=== PATIENT | female | born 1970 | race Caucasian/White ===

== ENCOUNTER 2017-06-08 15:29 | Outpatient (RCR) | payer MEDICAID, SELFPAY ==
[2017-06-08 13:28] VITALS: BP 139/35; PULSE 86; RESP 16; TEMP 37.7; O2SAT 99; BMI 21.0
--- NOTE | 2017-06-08 14:53 | CON.PCM_ITS ---
Consult Referring Physician: Yamileth Camargo. Subjective Date of Service:: 06/08/17 Chief Complaint: Referred for anemia and splenomegaly. History of Present Illness: 46y.o.woman was admitted in April 2017 with severe anemia, CT scan on 2016 showed normal liver and normal spleen with bilateral kidney stones, largest was 3 mm. She reportedly had lower GI a few weeks before admission. While on admission, she had a reaction to Venofer and was transfuse 2 Units PRBC. On May 28, 2017 EGD was normal, colonoscopy showed mild diverticulosis. She saw her primary care provider and was told she had splenomegaly so was referred for further evaluation. She denies bleeding, having her menses now. Power of Heating And Cooling Technician: No Living Will: No Health History: Past Medical History Past Medical History: Anemia,Diabetes mellitus Past Surgical History Surgical: Cholecystectomy Other Surgical History: TUMOR REMOVED FROM WRIST Family History Paternal Past Medical History: Diabetes mellitus,Heart disease,Hypertension Paternal History of Cancer Skin cancer Maternal Past Medical History: Diabetes mellitus Social History Smoking Status Former smoker Allergies/Adverse Reactions: Allergy/AdvReac Type Severity Reaction Status Date / Time iron [From Venofer] Allergy Severe Hives Verified 06/08/17 13:26 latex Allergy Rash Verified 06/08/17 13:26 Home Medications Medication Instructions Recorded Acetaminophn/Pyril Mal/Caffein 1 each PO 06/08/17 [Midol Caplet] HydrOXYzine GLORIA [Vistaril] 25 mg PO TID PRN PRN 06/08/17 Ibuprofen [Ibuprofen Ib] 400 mg PO PRN 06/08/17 Ondansetron HCl [Zofran] 4 mg PO PRN 06/08/17 Review of Systems Constitutional:: Denies: Fever, Sweats, Weight loss, Appetite change, Chills Cardiovascular:: Denies: Chest pain, Palpitations, Dyspnea on exertion, Orthopnea, PND, Shortness of breath Respiratory: Denies: Cough, Hemoptysis, Shortness of Breath, Wheezing Gastrointestinal:: Denies: Abdominal pain, Nausea, Vomiting, Diarrhea, Constipation, Hematochezia Genitourinary: Denies: Dysuria, Hematuria, 15, Flank pain Musculoskeletal:: Reports: Arthralgia. Denies: Joint stiffness, Joint swelling , Muscle weakness, Back pain, Myalgia Skin: Denies: Rash, Skin Changes, Wounds Neurological:: Denies: Headache, Dizziness, Visual changes, Tinnitus, Hearing loss Psychiatric: Reports: Anxiety Objective Vital Signs Height 1.6 m Weight: 53.977 kg Weight in Pounds 119.0 lbs Pulse Ox 99 Temperature 99.8 F Pulse Rate 86 Respiratory Rate 16 Blood Pressure 139/35 Blood Pressure Position Sitting - Physical Exam General: Alert, Oriented x3, No apparent distress HEENT: Atraumatic, PERRLA, EOMI, Normocephalic Oropharynx:: Dry mucosa Neck:: Supple, Trachea midline. Negative for: JVD, bilateral Cardiac:: Regular rate, Regular rhythm, Normal S1, Normal S2. Negative for: Murmur Lungs: Clear to auscultation, Excusion symmetrical. Negative for: Rhonchi, Wheezes Abdomen:: Bowel sounds x 4, Soft, Non-tender, Non-distended. Negative for: Hepatosplenomegaly Extremities:: - - scar Left wrist.. Negative for: Cyanosis, Edema Neurological: Neuro grossly intact Skin:: Negative for: Lesions, Rash, Petechiae, Ecchymosis Psychiatric:: Appropriate affect, Euthymic Lymphatics:: Negative for: Cervical lymphadenopathy, Supraclavicular lymphadenopathy, Axillary lymphadenopathy Assessment and Plan Anemia, etiology is unclear at this time. Splenomegaly detected by PCP. Arthralgia. Plan is to obtain CBC, CMP, LDH, Retic count, iron profile. US of spleen to R/O splenomegaly. To discuss arthralgias with PCP. RTC 2 wks. Primary Care Provider: No Primary Care Phys Referring Provider: (1) Anemia Status: Acute Qualifiers:
[2017-06-22 15:35] VITALS: BP 144/92; PULSE 104; RESP 16; TEMP 37.6; O2SAT 99; BMI 20.9
--- NOTE | 2017-06-22 15:56 | ONC.PN.ESTAB ---
- Date of Service Date of Service:: 06/22/17 - Chief Complaint f/u for anemia and splenic US results. - History of Present Illness 46y.o.woman was admitted in April 2017 with severe anemia, CT scan on 05/12/2017 showed normal liver and normal spleen with bilateral kidney stones, largest was 3 mm. She reportedly had lower GI bleed a few weeks before admission. While on admission, she had a reaction to Venofer and was transfuse 2 Units PRBC. On May 28, 2017 EGD was normal, colonoscopy showed mild diverticulosis. She saw her primary care provider and was told she had splenomegaly so was referred for further evaluation. US of spleen and iron were requested and comes in for follow up. - Past Medical/Social History Past Medical History Past Medical History: Anemia,Diabetes mellitus Past Surgical History Surgical: Cholecystectomy Other Surgical History: TUMOR REMOVED FROM WRIST BLADDER SCOPE 06/15/17 Family History Paternal Past Medical History: Diabetes mellitus,Heart disease,Hypertension Paternal History of Cancer Skin cancer Maternal Past Medical History: Diabetes mellitus Social History Smoking Status Former smoker Review of Systems Constitutional:: Denies: Fever, Sweats, Weight loss, Appetite change, Chills Cardiovascular:: Denies: Chest pain, Palpitations, Dyspnea on exertion, Orthopnea, PND, Shortness of breath Respiratory: Denies: Cough, Hemoptysis, Shortness of Breath, Wheezing Gastrointestinal:: Denies: Abdominal pain, Nausea, Vomiting, Diarrhea, Constipation, Hematochezia Genitourinary: Denies: Dysuria, Hematuria, 15, Flank pain Musculoskeletal:: Denies: Back pain, Myalgia, Arthralgia Skin: Denies: Rash, Skin Changes, Wounds Neurological:: Denies: Headache, Dizziness, Visual changes, Tinnitus, Hearing loss Psychiatric: Denies: Anxiety, Depression, Homicidal Ideations, Suicidal Ideations Objective Vital Signs Height 1.6 m Weight: 53.524 kg Weight in Pounds 118.0 lbs Pulse Ox 99 Temperature 99.7 F Pulse Rate 104 Respiratory Rate 16 Blood Pressure 144/92 Blood Pressure Position Sitting - Physical Exam General: Alert, Oriented x3, No apparent distress Laboratory Data: 06/08/2017 labs reviewed, WBC 5.7 hemoglobin 12.1, platelets 177. Ferritin 40. Diagnostic Data: 06/15/2017 abdominal ultrasound left upper quadrant recent reviewed, normal-sized spleen with no abnormalities. Assessment and Plan Anemia resolved. No Splenomegaly on Ultrasound. Discussed findings with PT. Plan is to follow with PCP. RTC prn. Primary Care Provider: No Primary Care Phys Referring Provider: (1) Anemia Status: Resolved (2) Splenomegaly Status: Resolved
== END 2017-06-29 14:19 | disposition home or self-care (01) ==
LOC: OMD 06-22 15:29
PROVIDERS: Visit Provider Internal Medicine Medical Oncology
DX: D64.9 Anemia, unspecified (principal)

== ENCOUNTER → 2017-09-11 08:20 | Outpatient (CLI) | payer MEDICAID, SELFPAY ==
--- NOTE | 2017-09-11 | EMB_PTH ---
PATIENT: XUAN IRVING LOC: [facility] U#:[id number] AGE/SX: 54/F ROOM: RE09/11/[address]: Dr. Katelyn Santillan MD : 1970 BED: DIS: SPEC #: [id number] RECD: 09/11/17 18:13 STATUS: DIONISIO TRACEE #: [id number] SANDIE: 09/11/17 00:[address]: Katelyn Santillan DEPT: SURGICAL PATHOLOGY RECD BY: Fermin Sanabria ENTERED: 09/14/17 08:19 SP TYPE: ENDOM BX/C RACHEL DR: No Primary Care Phys Tissues: Endometrium, NOS Procedures: Surgery Specimen Level IV HEADER OPERATION: Endometrial biopsy PRE-OP DIAGNOSIS: Endometrial biopsy TISSUE SUBMITTED: Endometrial biopsy MICROSCOPIC DIAGNOSIS Endometrium, biopsy: Scant strips of weakly proliferative to inactive endometrium. AM:augustus 09/15/17 COMMENT The specimen primarily consists of clotted blood. Clinical correlation is suggested. MICROSCOPIC DESCRIPTION Slides are reviewed. GROSS DESCRIPTION Received is one container labeled with the patient's name and not further designated. The specimen consists of multiple irregular fragments of red-blanchard soft tissue that in aggregate measure 2.3 x 1 x 0.1 cm. The specimen is totally submitted in one cassette. / AM:augustus 09/14/17 TC:5 [facility]: [id number]
== END ==
PROVIDERS: Visit Provider Obstetrics & Gynecology
DX: N93.9 Abnormal uterine and vaginal bleeding, unspecified (principal)
CPT/HCPCS: 88305

== ENCOUNTER 2017-09-11 14:45 | Emergency (ER) | payer MEDICAID, SELFPAY ==
[2017-09-11 14:48] VITALS: BP 122/86; PULSE 92; RESP 17; TEMP 37.3; O2SAT 93; BMI 21.9
[2017-09-11 15:52] LABS: Bacteria 0 SEEN /hpf (None Seen); Color, Urine Yellow (Yellow); Glucose, Dipstick Normal (Normal); Ketone-Dipstick Negative (Negative); Leukocyte Esterase-Dipstick Negative /ul (Negative); Mucous, Urine 0 SEEN /hpf (<or=2+); Nitrite-Dipstick Negative (Negative); Occult Blood-Urine Negative /ul (Negative); Protein-Dipstick Negative (Negative); Red Blood Cells-Urine 0 SEEN /hpf (0-5); Specific Gravity, Urine 1.005 (1.002-1.030); Squamous Epithelial Cells - UA 0 SEEN /hpf (5-10); Urine Bilirubin Dipstick Negative (Negative); Urine Clarity Clear (Clear); Urine Urobilinogen Normal (Normal); White Blood Cells 0 SEEN /hpf (0-5)
== END 2017-09-11 18:54 | disposition left against medical advice (07) ==
LOC: ED 18:30
PROVIDERS: Emergency Provider Emergency Medicine
DX: R10.32 Left lower quadrant pain (principal); N93.9 Abnormal uterine and vaginal bleeding, unspecified
CPT/HCPCS: 81001; 88305

== ENCOUNTER 2017-10-09 05:19 | Day surgery (SDC) | payer MEDICAID, SELFPAY ==
[2017-10-09] VITALS (13 sets, daily range): BP systolic 93–128; BP diastolic 48–74; PULSE 83–103; RESP 14–20; TEMP 36.4–36.9; O2SAT 87–100; BMI 22.8; BMI 23.6
--- NOTE | 2017-10-09 | HYST_PTH ---
PATIENT: XUAN IRVING LOC: [facility] [place] U#:[id number] AGE/SX: 47/F ROOM: RE10/09/[address]: Dr. Katelyn Santillan MD : 1970 BED: DIS: 10/10/2017 SPEC #: [id number] RECD: 10/09/17 15:07 STATUS: DIONISIO TRACEE #: [id number] SANDIE: 10/09/17 00:[address]: Katelyn Santillan DEPT: SURGICAL PATHOLOGY RECD BY: Fermin Sanabria ENTERED: 10/09/17 15:08 SP TYPE: HYSTERECT OTHR DR: No Primary Care Phys Tissues: Uterus, NOS Procedures: Surgery Specimen Level V HEADER OPERATION: Hysterectomy, lap-assisted vaginal, left salpingectomy-oophorectomy PRE-OP DIAGNOSIS: Chronic pelvic pain, endometriosis determined by laparoscopy, stress incontinence of urine, abnormal uterine bleeding, LGSIL on cytologic smear of cervix TISSUE SUBMITTED: Uterus, cervix, right fallopian tube, left ovary and fallopian tube MICROSCOPIC DIAGNOSIS Uterus, cervix, right fallopian tube, left ovary and fallopian tube, vaginal hysterectomy, left salpingectomy-oophorectomy, right salpingectomy: Cervix ? focal changes suspicious for HPV cytopathic effects. - Chronic cystic cervicitis. - Resection margins are free of dysplastic changes. Endometrium ? proliferative endometrium. Myometrium ? focal superficial adenomyosis. Bilateral fallopian tubes - no pathologic diagnosis. Left ovary ? physiologic follicular cyst. SJ:augustus 10/12/17 COMMENT Immunohistochemistry ([id number]) for surrogate HPV marker (p16) supports the above diagnosis.. MICROSCOPIC DESCRIPTION Slides are reviewed. GROSS DESCRIPTION Received in fixative is one container labeled with the patient's name and designated uterus, cervix, left ovary and fallopian tube and right fallopian tube. The specimen consists of a hysterectomy specimen consisting of uterus with cervix, attached right fallopian tube and attached left fallopian tube and ovary. The uterus with cervix weighs 148 gm and measures 10.5 x 7 x 5 cm. The serosal surface is blanchard, glistening. The ectocervical mucosa is unremarkable. The external os is circular in contour. The endocervical canal measures 3 cm in length and the endocervical mucosa is unremarkable. Sections of the cervix reveal multiple cysts filled with mucoid material. The cervix is transected and the resection margin is inked blue. The rest of the resection margin is inked black. The triangular endometrial cavity measures 5 cm in length and 3 cm in width. The endometrium is blanchard, glistening, focally congested without any mass lesion and measures 0.1 cm in thickness. Sections of the uterine wall do not reveal any mass lesion and measures up to 2.5 cm in thickness. The right fallopian tube measures 7 cm in length and 0.6 cm in diameter. The fimbrial end is identified. It is interrupted in the middle consistent with previous tubal occlusion. The left fallopian tube is similar appearance to right and measures 7 cm in length and 0.7 cm in diameter. The fimbrial end is identified. It is interrupted in the middle consistent with previous tubal occlusion. No tubo-ovarian adhesions are noted. The left ovary measures 4 x 2.5 x 1.5 cm. Sections reveal multiple cysts filled with hemorrhagic fluid. The largest cyst measures 1.5 cm in greatest dimension. Manager Support sections are submitted in 17 cassettes as follows: 1-9 - cervix like a cone (1 & 2 ? 12 to 3 o?clock, 3 & 4 ? 3 to 6 o?clock, 5 & 6 ? 6 to 9 o?clock, 7-9 ? 9 to 12 o?clock), 10 & 11 ? anterior uterine wall, 12 & 13 ? posterior uterine wall, 14 ? right fallopian tube, 15 ? left fallopian tube, 16 & 17 ? left ovary. / NILAY:augustus 10/09/17 TC:5 CPT: 40057
--- NOTE | 2017-10-09 | IMM_PTH ---
PATIENT: XUAN IRVING LOC: [facility] [place] U#:[id number] AGE/SX: 47/F ROOM: RE10/09/[address]: Dr. Katelyn Santillan MD : 1970 BED: DIS: 10/10/2017 SPEC #: [id number] RECD: 10/12/17 12:55 STATUS: DIONISIO REEllie #: [id number] SANDIE: 10/09/17 00:[address]: Katelyn Santillan DEPT: IMMUNOHISTOCHEMISTRY RECD BY: Sandra Robledo ENTERED: 10/12/17 12:57 SP TYPE: IMMUNO OTHR DR: No Primary Care Phys Tissues: Uterus, NOS Procedures: p16 (initial) KI-67 (add) P16 (add) PHYSICIAN & [place] [id number] SPECIMEN INFORMATION: Tissue Source: Uterus, hysterectomy Clinical Info: Chronic pelvic pain, endometriosis Specimen Number: [id number] #1 & 6 CPT code: 58826, 88864 x3 METHODOLOGY: Deparaffinized sections of prefer/formalin-fixed tissue or PAP/DQ stained slides are incubated with monoclonal/polyclonal antibodies/oligonucleotide probes. Localization is made via biotin free immunoperoxidase method. Appropriate controls are performed and reacted as expected. Results on target cell population are indicated in the following table: RESULTS: ANTIBODY / CLONE RESULT Block 1 P16 (E6H4) negative Ki-67 (30-9) negative Block 6 P16 (E6H4) positive, focal and patchy Ki-67 (30-9) negative These tests were developed and their performance characteristics determined by [facility]. They may not have been cleared or approved by the U.S. Food and Drug Administration. The FDA has determined that such clearance or approval is not necessary. INTERPRETATION: Uterus, hysterectomy: Focal changes suspicious for HPV cytopathic effects. SJ:augustus 10/13/17
[2017-10-09 06:13] LABS: Hemoglobin 11.1 g/dl (12.0-15.0); Mean Corp Hgb Conc 33.6 g/gl (32-36); Mean Corpuscular Hgb 31.6 pg (27.0-32.0); Mean Platelet Vol. 8.4 fl (6.2-12.0); Platelet Count 158 K/mm3 (150-450); RBC Distribution Width CV 14.1 % (11.6-14.6); RBC Distribution Width SD 48.5 fl (35.1-43.9); Red Blood Count 3.51 M/mm3 (4.2-5.4); Scan Indicated on CBC? Y/N NO; White Blood Count 6.2 K/mm3 (4.4-11.0)
[2017-10-09 06:23] LABS: Partial Thromboplast Time 27.2 Seconds (24.1-36.2)
[2017-10-09 06:45] LABS: Bedside Glucose 87 mg/dL (70-110)
--- NOTE | 2017-10-09 10:28 | PCM.HPOB.BLA ---
- Problem List (1) Abnormal uterine bleeding Status: Acute Comment: aygestin failed then on provera, small fibroid, plan lavh (2) Chronic pelvic pain in female Status: Acute (3) Stress incontinence of urine Status: Acute History and Physical Date of Admission: 10/09/17 Intake Vital Signs 09/11/17 Height 5 ft 2 in 09/11/17 Blood Pressure 130/75 Intake Visit Reasons: COLP Allergies iron [From Venofer] Allergy (Severe, Verified 09/11/17 14:48) Hives latex Allergy (Verified 09/11/17 14:48) Rash Medications naproxen sodium 220 mg capsule 220 mg PO Q12H 07/27/17 [History Confirmed 09/11/17] propranolol 20 mg tablet 20 mg PO TID 07/27/17 [History Confirmed 09/11/17] Ondansetron [Zofran Odt] 4 mg PO Q6H PRN PRN #10 tab 08/11/17 [Rx Confirmed 09/11/17] norethindrone acetate 5 mg tablet 5 mg PO BID #30 tab 08/24/17 [Rx Confirmed 09/11/17] medroxyprogesterone 10 mg tablet 10 mg PO .COMPLEX #40 tab 09/10/17 [Rx Confirmed 09/11/17] tddhzuhxvq-rxlbhweilkzji-zsnlgqdq 50 mg-300 mg-40 mg capsule 1 cap PO Q4H PRN #20 cap 09/11/17 [Rx Confirmed 09/11/17] cyclobenzaprine 10 mg tablet 10 mg PO TID PRN #30 tab 09/11/17 [Rx Confirmed 09/11/17] promethazine 12.5 mg tablet 12.5 mg PO Q6H PRN #30 tab 09/11/17 [Rx Confirmed 09/11/17] Is last menstrual period known: Yes Last Menstral Period: 07/17/17 Post menopausal: No Patient : No : No PFSH Medical History Anxiety (Acute) Diabetes (Acute) Surgical History Bile leak (Acute) delivery delivered (Acute) H/O bone graft (Acute) H/O laparoscopy (Acute) gallbladder (Acute) tubal ligation (Acute) Family History Father Cancer skin cancer Heart disease Diabetes Mother Diabetes Grandfather Cancer Grandmother Cancer colon Aunt Cancer endometrial Brother Polycystic kidney Social History Smoking Status: Former smoker alcohol intake: never substance use type: does not use caffeine: Yes (patient drinks more than 4 caffinated beverages per day) what type of physical activity do you participate in: none seatbelt use: always additional social history: Kayden is her boyfriend and he works at [employer] HPI COLP: Details: XUAN IRVING is a 47 year old who presents for heavy irregular bleeding since beginning of july. She previously has had anemia in the past and had two blood transfusions. she co of headache, fatigue, unable to do activities. she is dealing with a major with the family. she is throwing up constantly now these last few days. She also has significant stress urinary incontinence daily. headaches were constant before she even had been on hormones. She has had a cystoscopy and upper and lower GI evaluation. She has seen a drug safety data management specialist and hasn't had a diagnosis. she has a history of endometrial hyperplasia. she particularly feels pain consistently on her left side which she feels is her ovary Female Reproductive History Last Menstral Period: 07/17/17 Cycle Length: 21-35 Bleeding Duration: 55 Questions: Metorrhagia: Yes, Sexually active: Yes, Dyspareunia: No, PCB: No Pregancy History 6 Elective abortions Hx Para 5 Spontaneous abortions Hx # Term Pregnancies Ectopic pregnancies Hx # Pregnancies Multiple births # of living children Past Pregnancies Del. Date Name GA/Weeks Outcome Route Bth Weight Gen Labor Lgth Anesthesia Del Locatn Provider FOB Unknown 1988 Line Unknown 1991 Yolis Unknown 1994 Restoration Unknown 1999 Danitza Unknown 2005 Andrés ROS Cardio Card: Denies chest pain Resp Resp: Denies dyspnea or cough GI GI: Reports as per HPI; denies vomiting, nausea, abdominal pain or constipation : Reports as per HPI; denies nipple discharge Skin Skin/Breast: Denies breast lump, breast pain, breast skin changes, nipple discharge or change in hair Exam Const General: cooperative, healthy appearing, comfortable, no acute distress, well developed Nutritional Appearance: average body habitus Orientation: alert HENMT Head: normal to inspection, normocephalic Neck Neck: normal visual inspection, trachea midline Thyroid: thyroid normal Resp Effort & Inspection: normal respiratory effort GI Inspection: normal to inspection, non-distended Palpation: soft, no hepatosplenomegaly General: bladder normal to palpation External Female Exam: normal external appearance, normal appearance of the urethra Urethra: normal appearance of the urethra, normal palpation, no discharge Speculum Exam - Vagina: normal appearance of the vagina, normal vaginal discharge Speculum Exam - Cervix: normal appearance of the cervix, nontender Bimanual Exam- Vagina & Uterus: bladder normal to palpation, No cervical tenderness, normal bimanual exam, uterine size normal, uterine shape normal, uterine mobility normal, uterine consistency normal, normal cervical palpation, uterus non-tender Bimanual Exam- Adnexa, other: normal adnexae, adnexae mobile, no adnexal masses, pelvic support normal Pelvic Support: normal Skin General: no rashes or lesions noted Office Procedures Endometrial Biopsy Endometrial Biopsy Test: Yes Negative Consent Signed: Yes Time out checklist: patient, procedure, site marked/identified, positioning of patient, supplies available, allergies confirmed, team agrees on procedure Time out time: 14:00 tenaculum used: No dilator used: No Details: Cervix prepped with betadine and pipelle inserted into uterus without complication. Specimen obtained and sent to lab for analysis. All instruments removed from vagina without complications. Excellent hemostasis noted. Assessment & Plan Problems 1. Chronic pelvic pain in female R10.2; G89.29 2. Endometriosis determined by laparoscopy N80.9 3. Stress incontinence of urine N39.3 4. Abnormal uterine bleeding N93.9 aygestin failed then on provera, small fibroid, plan lavh 5. Low grade squamous intraepithelial lesion on cytologic smear of cervix (LGSIL) R87.612 Plan discussed with patient would recommend surgical management of AUB due to failure of medical management and patient wants to also have treatment of DIDIER. plan LAVH bilateral salpingectomy left oophorectomy tot sling and cystoscopy. 10/09/17 630 am patient seen no clinical updates to h and p. Katelyn stuart MD Orders Orders: Endometrial Biopsy 09/11/17 CBC W/Diff, Automated 09/11/17 N93.9 Endometrial Biopsy Today Medications New: promethazine 12.5 mg PO Q6H PRN nausea and vomiting onmihpnccx-gammhupdmmvvb-tava 50-300-40 mg (Fioricet) 1 cap PO Q4H PRN pain cyclobenzaprine 10 mg PO TID PRN muscle spasm Coding Level of Care Code Off vis,new,level 4 Diagnoses Chronic pelvic pain in female R10.2; G89.29 Endometriosis determined by laparoscopy N80.9 Stress incontinence of urine N39.3 Abnormal uterine bleeding N93.9 Low grade squamous intraepithelial lesion on cytologic smear of cervix (LGSIL) R87.612 ??Abnormal Pap type: low grade squamous intraepithelial lesion (LGSIL) Additional Codes Endometrial Biopsy (00665)
--- NOTE | 2017-10-09 10:36 | OP.PCM_ITS ---
Problem List (1) Abnormal uterine bleeding Status: Acute Comment: aygestin failed then on provera, small fibroid, plan lavh (2) Chronic pelvic pain in female Status: Acute (3) Stress incontinence of urine Status: Acute Report of Operation Date of Procedure: 10/09/17 Pre-Operative Diagnosis: abnormal uterine bleeding chronic pelvic pain stress incontinence Surgery/Procedure Performed:: lavh lso right salpingectomy cystoscopy TOT sling lysis of adhesions Description of Surgical Findings:: extensive adhesions vesicouterine gas line installer: Margaret Mai Type of Anesthesia:: General Specimen's removed: uterus left tube ovary right tube Drains: urbina Estimated Blood Loss (mL): 100 Fluids Replaced: crystalloid Description of Procedure: Patient was taken to the operating room and placed under general anesthesia. Patient was prepped and draped in the normal sterile fashion in the dorsal lithotomy position. Uterine manipulator was placed inside the uterus after it sounded to 8 cm and then attention was paid to the abdomen and an intraumbilical incision was made with the scalpel after injecting with quarter percent Marcaine. Veress needle was entered into the abdomen confirmed the intra-abdominal with an opening pressure of 5 mmHg or less in the abdomen was insufflated and a 5 mm port was placed under direct visualization. Right left lower quadrant ports were placed under direct visualization. Mental to anterior abdominal wall adhesions were taken down and then very dense adhesions of the bladder to the uterus were noted bilateral ovaries were within normal limits the right sigmoid colon was attached to the right pelvic sidewall that was taken down with the LigaSure device. The ureters were visualized bilaterally noted to be inferior lateral to the operative field. The left ovary was elevated and the infundibulopelvic ligament was transected followed by the mesosalpinx and the round ligament on the left side with the LigaSure were then transected. Dense adhesions were taken down with the LigaSure and with the monopolar scissors and progressive sharp dissection and hydrodissection. The uterine artery was skeletonized and transected. The right fallopian tube was then elevated and the mesosalpinx transected and the utero-ovarian ligament was transected with the LigaSure device. The round ligament was transected and the broad ligament opened and the uterine vessels skeletonized. Significant dense scar tissue from the bladder to the uterus was also encountered and taken down sharply and with hydrodissection and monopolar scissors. Progressive lysis of adhesions of the attachment of the dome of the bladder to the base of the uterine corpus was taken down sharply and with hydrodissection. The uterine arteries were transected bilaterally and attention was then paid to the vaginal portion of the procedure. Cervix was grasped with Qian clamps and circumferentially injected with dilute vasopressin. Circumferential incision was made and the posterior and anterior cul-de-sacs were entered into sharply. The bilateral uterosacral ligaments were clamped cut and suture ligated with 0 Monocryl followed by the cardinal ligaments and then the remaining attachment of the uterus and pelvic sidewall. The uterus was removed and the vaginal cuff was noted to have excellent hemostasis and therefore it was reapproximated with ruegvs-om-hzick sutures of 0 Vicryl. The sling portion of the procedure was then performed by making bilateral stab incisions at the level of the clitoris and at the obturator notch bilaterally. The mid urethral portion of the vagina was elevated and dissected off bilaterally around the urethra bilaterally to the vaginal fornices behind the issue pubic rami. Bilateral outs in approach with the helical rafal sling trochars were passed without complication and cystoscopy was performed no bladder abnormalities were noted the ureter was noted to have strong spray from the patient's left side but the right side was difficult to be visualized. The right vaginal cuff suture was removed and replaced in case this was impeding flow but still no flow was seen. Dr. Fields was called in and a catheter stent was easily placed and passed on the right side and while watching visually well he backfilled the bladder no abnormalities were noted catheters were removed stents were removed Acacian. The Urbina catheter was replaced. Excellent hemostasis was noted intra-abdominally and all ports were removed after the abdomen was desufflated of gas and port sites were closed with 4-0 Monocryl the vaginal incision was closed with 2-0 Monocryl and the stab incisions were closed with Dermabond. [place] and taken recovery in stable condition Grafts/Implants Used: urbina and tot sling - Complications none - Admit VTE Documentation VTE Present on Admission: No VTE Mechan Device Prophylaxis: SCD's VTE Pharm Prophylaxis ordered?: No
[2017-10-09] MEDS: Bupivacaine 0.25% 30 ML Vial (10:39)
[2017-10-09] MEDS: Vasopressin 20 UNITS/ML Vial (12:05)
[2017-10-09] MEDS: Methylene Blue 1% 100 MG/10 ML VIAL (12:11)
--- NOTE | 2017-10-09 13:14 | PCM.OPRPT ---
Problem List (1) Abnormal uterine bleeding Status: Acute Comment: aygestin failed then on provera, small fibroid, plan [facility] Report of Operation Date of Procedure: 10/09/17 Pre-Operative Diagnosis: concern about bladder or ureteral injury. Post-Operative Diagnosis: normal bladder, right ureter normal Surgery/Procedure Performed:: cystoscopy, right ureteral catheter placement. Description of Surgical Findings:: 7-year-old female who is undergoing a laparoscopic-assisted hysterectomy. The primary surgeon called me and she was concerned about possible problem or injury to the distal right ureter or bladder so she asked for assistance in the case. Patient was asleep had completed a hysterectomy by Dr. Maynor Mccoy and I scrubbed into the case I performed a cystoscopy with 30 and 70? lens. I did not identify any injury to the bladder or problems. She had a normal urethra and normal bladder normal left and right ureteral orifice. The primary surgeon and told me that the left side had been the effluxing and looked normal she was concerned about the right side I then used a Pollack catheter and advanced the Pollack catheter up the right ureter without any problems they were watching laparoscopically and then not notice any injury or problems in the Pollack catheter did not see the Pollack catheter itself and then I removed the Pollack catheter. Was able to advance the Pollack catheter all the way to the kidney without any problems drain the bladder inspected the bladder again no apparent injury to the bladder or the ureters so at this point and the case back over to the die casting machine setter. battery parts assembler: Margaret Mai Type of Anesthesia:: General - Admit VTE Documentation VTE Present on Admission: No VTE Mechan Device Prophylaxis: SCD's
--- NOTE | 2017-10-09 13:18 | OP.PCM_ITS ---
Problem List (1) Abnormal uterine bleeding Status: Acute Comment: aygestin failed then on provera, small fibroid, plan [facility] Report of Operation Date of Procedure: 10/09/17 Pre-Operative Diagnosis: concern about bladder or ureteral injury. Post-Operative Diagnosis: normal bladder, right ureter normal Surgery/Procedure Performed:: cystoscopy, right ureteral catheter placement. Description of Surgical Findings:: 7-year-old female who is undergoing a laparoscopic-assisted hysterectomy. The primary surgeon called me and she was concerned about possible problem or injury to the distal right ureter or bladder so she asked for assistance in the case. Patient was asleep had completed a hysterectomy by Dr. Maynor Mccoy and I scrubbed into the case I performed a cystoscopy with 30 and 70? lens. I did not identify any injury to the bladder or problems. She had a normal urethra and normal bladder normal left and right ureteral orifice. The primary surgeon and told me that the left side had been the effluxing and looked normal she was concerned about the right side I then used a Pollack catheter and advanced the Pollack catheter up the right ureter without any problems they were watching laparoscopically and then not notice any injury or problems in the Pollack catheter did not see the Pollack catheter itself and then I removed the Pollack catheter. Was able to advance the Pollack catheter all the way to the kidney without any problems drain the bladder inspected the bladder again no apparent injury to the bladder or the ureters so at this point and the case back over to the business systems manager. artist woodblock: Margaret Mai Type of Anesthesia:: General - Admit VTE Documentation VTE Present on Admission: No VTE Mechan Device Prophylaxis: SCD's
[2017-10-09 14:16] LABS: Bedside Glucose 106 mg/dL (70-110)
[2017-10-09] MEDS: Acetaminophen 500 MG Tablet 1000 MG PO ×2 (15:25→21:42)
[2017-10-09] MEDS: Propranolol 10 MG Tablet 20 MG PO ×2 (15:28→21:44)
[2017-10-09] MEDS: Lactated Ringers 1,000 ML 125 ML IV (17:18)
[2017-10-09] MEDS: Ketorolac 30 MG/ML Syringe IV (17:18)
[2017-10-09 17:25] LABS: Bedside Glucose 100 mg/dL (70-110)
[2017-10-09] MEDS: HYDROmorphone 1 MG/ML Syringe IV ×2 (18:09→21:44)
[2017-10-09 23:26] LABS: Bedside Glucose 156 mg/dL (70-110)
[2017-10-10] MEDS: Ketorolac 30 MG/ML Syringe IV ×3 (00:39→11:41)
[2017-10-10] MEDS: Lactated Ringers 1,000 ML 125 ML IV (01:03)
[2017-10-10] MEDS: oxyCODONE 5 MG Tablet PO ×3 (01:03→09:41)
[2017-10-10 03:11] VITALS: BP 131/77; PULSE 104; RESP 16; TEMP 36.8; O2SAT 96
[2017-10-10] MEDS: Enoxaparin 40 MG/0.4 ML Syringe SC (05:28)
[2017-10-10] MEDS: Acetaminophen 500 MG Tablet 1000 MG PO (05:28)
[2017-10-10] MEDS: Propranolol 10 MG Tablet 20 MG PO (05:29)
[2017-10-10 05:33] VITALS: BP 115/71; PULSE 103
[2017-10-10 06:46] LABS: Hematocrit 27.3 % (37-47); Hemoglobin 8.9 g/dl (12.0-15.0); Mean Corp Hgb Conc 32.6 g/gl (32-36); Mean Corpuscular Hgb 31.3 pg (27.0-32.0); Mean Corpuscular Volume 96.1 fL (81-99); Mean Platelet Vol. 8.7 fl (6.2-12.0); Platelet Count 136 K/mm3 (150-450); RBC Distribution Width CV 13.8 % (11.6-14.6); RBC Distribution Width SD 48.8 fl (35.1-43.9); Red Blood Count 2.84 M/mm3 (4.2-5.4); White Blood Count 9.6 K/mm3 (4.4-11.0)
[2017-10-10 06:49] LABS: Scan Indicated on CBC? Y/N NO
[2017-10-10 07:15] LABS: Bedside Glucose 91 mg/dL (70-110)
--- NOTE | 2017-10-10 07:41 | PCM.PN.OB ---
Subjective: DOING well no cp sob n v but having decreased appetite. unable to urinate yet. pain controlled. - Physical Exam General: Alert, Oriented x3 Vital Signs Temp Pulse Resp BP Pulse Ox 98.3 F 103 H 16 115/71 96 10/10/17 03:11 10/10/17 05:33 10/10/17 03:11 10/10/17 05:33 10/10/17 03:11 Oxygen Flow Rate 2 Oxygen Delivery Method Room Air Weight: 129 lb Body Mass Index (BMI) 23.6 Finger Stick Blood Glucose 106 Intake and Output for Last 24 Hours 10/08/17 10/09/17 10/10/17 23:59 23:59 23:59 Intake Total 2911 / 2911 2090 / 2090 Output Total 700 / 700 1725 / 1725 Balance 2211 / 2211 365 / 365 Laboratory Tests Past 24 Hrs 10/09/17 10/10/17 05:55 06:18 WBC 9.6 RBC 2.84 L Hgb 8.9 L Hct 27.3 L MCV 96.1 MCH 31.3 MCHC 32.6 RDW 13.8 RDW Differential 48.8 H Plt Count 136 L MPV 8.7 Hemoglobin A1c 5.0 POC Glucose 10/10/17 10/09/17 10/09/17 07:00 22:09 17:16 POC Glucose 91 156 H 100 10/09/17 14:09 POC Glucose 106 Assessment/Plan s/p LAVH LSO TOT Sling pod 1 routine care- voiding trial, replace catheter if unable to completely void diabetes- SSI dc home today repeat hg due to anemia
--- NOTE | 2017-10-10 07:48 | DCINST_ITS ---
Discharge Diet: No Restrictions Discharge Activity: Return to Normal Activity, May Not Drive, May Shower May resume sexual activity in: 6-8 weeks Call your doctor if your incision/area has: Continuous Slow Oozing, Sudden Increased Bleeding, Increased Pain/ Swelling, Increased Redness, Foul Smelling Discharge Call your doctor if you observe: Fever of 101 or Higher, Inability to urinate, Inability to have a bowel movement, Using more than one pad per hour Allergies/Adverse Reactions: Allergies iron [From Venofer] Allergy (Severe, Verified 10/02/17 10:56) Hives DIFFICULTY BREATHING latex Allergy (Verified 10/02/17 10:56) Rash Medications to take at Discharge propranolol 20 mg tablet 20 mg PO TID 07/27/17 medroxyprogesterone 10 mg tablet 10 mg PO .COMPLEX #40 tab 09/10/17 xxdxdrwyey-nsmjlavdhmfdz-hzfgvfzi 50 mg-300 mg-40 mg capsule 1 cap PO Q4H PRN # 20 cap 09/11/17 cyclobenzaprine 10 mg tablet 10 mg PO TID PRN #30 tab 09/11/17 promethazine 12.5 mg tablet 12.5 mg PO Q6H PRN #30 tab 09/11/17 Naproxen [Naprosyn] 250 - 500 mg PO Q8H PRN PRN #30 tab 10/10/17 Oxycodone HCl/Acetaminophen [Percocet 5-325] 2 tablet PO Q4H PRN PRN 7 Days #28 tablet 10/10/17 The following prescriptions were given: Oxycodone HCl/Acetaminophen [Percocet 5-325] 2 tablet PO Q4H PRN PRN 7 Days #28 tablet PRN Reason: Moderate-Severe pain Naproxen [Naprosyn] 250 - 500 mg PO Q8H PRN PRN #30 tab PRN Reason: MILD PAIN Primary Care Physician: Care Physician,No Primary [Primary Care Provider] - Please Follow Up With: Katelyn Santillan MD - [phone]
[2017-10-10 08:31] VITALS: BP 99/61; PULSE 102; RESP 16; TEMP 37.4; O2SAT 96
--- NOTE | 2017-10-10 10:16 | NURSING ---
Patient would like to try voiding trial again before having a catheter inserted. Will continue to monitor.
[2017-10-10 11:02] LABS: Hemoglobin 9.7 g/dl (12.0-15.0)
[2017-10-10] MEDS: 0.9% NaCl Peripheral Flush Adult/Peds IV (11:42)
[2017-10-10 11:56] LABS: Bedside Glucose 120 mg/dL (70-110)
== END 2017-10-10 13:04 | disposition home or self-care (01) ==
LOC: SDC 05:20 → AC 05:22 → MS3 10:08
PROVIDERS: Urology; Visit Provider Obstetrics & Gynecology
PROC: 0UT9FZZ Resection of Uterus, Via Natural or Artificial Opening With Percutaneous Endoscopic Assistance (ICD-10-PCS; CPT 49329; principal; 2017-10-09 07:05)
PROC: 0TJB8ZZ Inspection of Bladder, Via Natural or Artificial Opening Endoscopic (ICD-10-PCS; CPT 52000; 2017-10-09 07:05)
DX: N72 Inflammatory disease of cervix uteri (principal); N80.0 Endometriosis of uterus; N83.02 Follicular cyst of left ovary; N39.3 Stress incontinence (female) (male); D64.9 Anemia, unspecified; R11.2 Nausea with vomiting, unspecified; F41.9 Anxiety disorder, unspecified; Z87.891 Personal history of nicotine dependence; Z87.442 Personal history of urinary calculi; Z79.899 Other long term (current) drug therapy
CPT/HCPCS: 00944; 49329; 51992; 52000; 53899; 58552; 36415; 82962; 83036; 85018; 85027; 85610; 85730; 86850; 86900; 88307; 88341; 88342; J7120; A4216; C1769; C1771; J2405

== ENCOUNTER → 2017-11-11 18:54 | Outpatient (CLI) | payer MEDICAID, SELFPAY | PROVIDERS: Visit Provider Obstetrics & Gynecology | DX: R30.0 Dysuria (principal) | CPT/HCPCS: 87086; 87088; 87186 ==

== ENCOUNTER 2018-12-17 20:19 | Emergency (ER) | payer MEDICAID, SELFPAY ==
[2018-12-17 20:20] VITALS: BP 124/90; PULSE 125; RESP 20; TEMP 36.1; O2SAT 96; BMI 21.2
--- NOTE | 2018-12-17 20:40 | CT_ITS ---
STUDY: CT ABDOMEN AND PELVIS WITHOUT CONTRAST REASON FOR EXAM: Female, 48 years old. Right flank pain RADIATION DOSAGE (If Supplied By Facility): CTDIvol = ( 60.4 ) mGy, DLP = ( 291.44 ) mGycm TECHNIQUE: Transaxial images were obtained from the dome of the diaphragm to the symphysis pubis without oral contrast, and without intravenous contrast. Sagittal and coronal images were reconstructed. Individualized dose optimization techniques were used for this CT. COMPARISON: 05/12/2017 CT scan abdomen and pelvis FINDINGS: The visualized lung bases are unremarkable. The visualized portions of the heart are within normal limits. Normal liver. There are surgical clips in the gallbladder fossa consistent with a prior cholecystectomy. Normal spleen. Normal pancreas. Normal bilateral adrenal glands. There are punctate stones in the right kidney. There is no evidence of hydronephrosis. Her punctate stones in the left kidney there is no evidence of hydronephrosis. There is no definitive evidence of stones along the course of the ureters or within the bladder. Normal visualized stomach. There mildly distended loops of small bowel. There is mild to moderate stool in the colon.. There is diverticulosis without diverticulitis. The appendix is visualized and appears normal. There is trace calcification of the aorta. Normal inferior vena cava. Normal retroperitoneum. Normal urinary bladder. Normal visualized uterus. Normal abdominal wall. Normal osseous structures. CT/Abdomen/Pelvis without Cont IMPRESSION: Bilateral punctate renal stones no evidence of hydronephrosis. Status post cholecystectomy. Diverticulosis no evidence of diverticulitis. No evidence of appendicitis. Electronically Signed: Brisa Bales MD at 21:27 EDT Tel , Service support ,
[2018-12-17] MEDS: Ondansetron 4 MG/2 ML Vial IV (20:50)
[2018-12-17] MEDS: 0.9% Normal Saline 1,000 ML 1000 ML IV (20:50)
[2018-12-17] MEDS: Ketorolac 30 MG/ML Syringe IV (20:51)
[2018-12-17 20:53] LABS: Bacteria 0 SEEN /hpf (None Seen); Mucous, Urine 0 SEEN /hpf (<or=2+); Red Blood Cells-Urine 0 SEEN /hpf (0-5)
[2018-12-17 20:55] LABS: Color, Urine Yellow (Yellow); Glucose, Dipstick Normal (Normal); Ketone-Dipstick 50 mg/dl (Negative); Leukocyte Esterase-Dipstick Negative /ul (Negative); Nitrite-Dipstick Negative (Negative); Occult Blood-Urine Negative /ul (Negative); Protein-Dipstick Negative (Negative); Specific Gravity, Urine 1.015 (1.002-1.030); Urine Bilirubin Dipstick Negative (Negative); Urine Clarity Clear (Clear); Urine Urobilinogen Normal (Normal)
[2018-12-17 21:00] LABS: Absolute Lymphocyte Count 2.26 X10^3/ul (0.83-4.51); Absolute Neutrophil Count 3.9 X10^3/uL (2.0-7.7); Basophil# 0.02 X10^3/uL; Basophil% 0.3 % (0-1); Eosinophil# 0.15 X10^3/uL; Eosinophils% 2.2 % (0-5); Hematocrit 35.6 % (37-47); Hemoglobin 12.6 g/dl (12.0-15.0); Lymphocyte # 2.26 X10^3/ul (4.0); Lymphocyte % 33.4 % (19-41); Mean Corp Hgb Conc 35.4 g/gl (32-36); Mean Corpuscular Hgb 32.4 pg (27.0-32.0); Mean Corpuscular Volume 91.5 fL (81-99); Mean Platelet Vol. 8.5 fl (6.2-12.0); Monocyte# 0.46 X10^3/uL; Monocyte% 6.8 % (0-10); Neutrophil # 3.86 X10^3/uL (2.7-7.7); Neutrophil % 57.2 % (47-70); POSITIVE COUNT NO; POSITIVE DIFFERENTIAL NO; POSITIVE MORPHOLOGY NO; Platelet Count 135 K/mm3 (150-450); RBC Distribution Width CV 12.2 % (11.6-14.6); RBC Distribution Width SD 40.6 fl (35.1-43.9); Red Blood Count 3.89 M/mm3 (4.2-5.4); White Blood Count 6.8 K/mm3 (4.4-11.0)
[2018-12-17 21:06] LABS: Squamous Epithelial Cells - UA 0-5 SEEN /hpf (5-10); White Blood Cells 0-5 SEEN /hpf (0-5)
[2018-12-17 21:12] LABS: ALB/GLOB Ratio 1.1 RATIO (0.9-2.4); AST(SGOT) 30 U/L (15-37); Alanine Aminotransfer ALT/SGPT 29 U/L (13-56); Albumin, Serum 4.1 g/dL (3.2-5.0); Alkaline Phosphatase 61 U/L (45-117); Anion Gap 8 (5-15); BUN 20 mg/dL (7-18); BUN/Creat Ratio 26.3 RATIO (10-20); Calcium,Total 8.5 mg/dL (8.5-10.1); Chloride 103 mmol/L (98-107); Creatinine, Serum 0.76 mg/dL (0.55-1.02); EST Glomerular Filtration Rate 87 mL/min (>60); Est Glom Filt Rate - Afr Amer 105 mL/min (>60); Estimated Creatinine Clearance 73.15 ml/min; Globulin 3.6 g/dL (2.2-4.2); Glucose 132 mg/dL (74-106); Lipase 98 U/L (73-393); Potassium 3.5 mmol/L (3.5-5.1); Protein, Total 7.7 g/dL (6.4-8.2); Sodium Level 135 mmol/L (136-145)
[2018-12-17 21:53] VITALS: BP 121/70; PULSE 124; RESP 18; TEMP 36.9; O2SAT 100
--- NOTE | 2018-12-17 22:20 | EKG12_ITS ---
Test Reason : ABD PAIN Blood Pressure : / mmHG Vent. Rate : 100 BPM Atrial Rate : 100 BPM P-R Int : 118 ms QRS Dur : 084 ms QT Int : 340 ms P-R-T Axes : 069 089 061 degrees QTc Int : 438 ms Normal sinus rhythm Normal ECG Confirmed by JIM VOSS, GERTRUDIS ([id number]), primer expeditor and drier LETTY OCASIO ([id number]) on 12/21/2018 1:20:31 PM Referred By: BERNARDO Confirmed By:GERTRUDIS FERNANDEZ MD
--- NOTE | 2018-12-17 22:21 | RAD_ITS ---
STUDY: X-RAY CHEST REASON FOR EXAM: Female, 48 years old. Cough TECHNIQUE: Single AP portable view of the chest. COMPARISON: None. FINDINGS: There is nonspecific hyperinflation of the lungs. There is no demonstrated pleural abnormality. Normal size heart. Normal mediastinum and yuri. Normal visualized pulmonary arteries. Normal visualized aortic arch and descending thoracic aorta. Normal visualized thoracic spine. Normal visualized ribs, clavicles, and shoulders. There is no demonstrated abnormality of the visualized soft tissue structures of the upper abdomen. RAD/Chest 1 View (Portable) IMPRESSION: Normal x-ray examination of the chest. Electronically Signed: Brisa Bales MD at 22:39 EDT Tel , Service support ,
[2018-12-17] MEDS: Ketorolac 15 MG/ML Vial IV (22:33)
[2018-12-17 22:39] VITALS: BP 122/71; PULSE 111; RESP 20; TEMP 36.7; O2SAT 96
[2018-12-17 22:42] LABS: D-Dimer Quantitative (DVT/PE) 0.28 FEU/ug/m (0.27-0.49)
[2018-12-17 22:43] VITALS: PULSE 107; RESP 18
[2018-12-17] MEDS: Albuterol 2.5 MG/3 ML VIAL.NEB. INHALATION (22:43)
[2018-12-17 23:14] VITALS: BP 137/89; PULSE 110; RESP 18; TEMP 36.7; O2SAT 98
--- NOTE | 2018-12-17 23:25 | ED.DCSUM_ITS ---
- ER Visit Summary Date of Service: 12/17/18 Chief Complaint: Right flank pain History of Present Illness: The patient is a 48 F with right flank pain for several days. The pain does not radiate. Associated with subjective fevers, nausea, urinary frequency. Patient has a history of kidney stones and kidney infections. Remote history of cholecystectomy with bile leak as well as hysterectomy. Physical Examination: Afebrile and vital signs unremarkable except for heart rate of 125. Patient appears uncomfortable. Heart is tachycardic but regular. Lungs are clear. Right flank is tender to palpation with light touch. Right CVA tender to palpation. Skin appears normal. Alert and oriented. Test Results: Urinalysis shows no sign of bleeding or infection. CT flank showed bilateral punctate renal stones and postoperative changes. She has diverticulosis without diverticulitis. CBC and BMP were unremarkable. Hepatic panel and lipase were unremarkable. Emergency Department Course and Treatment: Patient treated with fluids, Zofran, and Toradol. She presents with flank pain, subjective fever, and urinary frequency. History of stones and infection. Her work-up however was unremarkable. No explanation for her symptoms. I reevaluated the patient. She was complaining of a cough and chest pain. EKG was performed and showed sinus rhythm at a rate of 100. Troponin was normal. D-dimer was negative. Chest x-ray was performed and was unremarkable. Patient's work-up so far has been unremarkable. She still complains of flank pain and nausea. Her heart rate is 110. I do not see signs of infection or ureter stones. No expiration for symptoms at this point. I believe she is appropriate for outpatient care. She will stay rested and hydrated. Tylenol as needed. Follow-up with primary care for recheck. Return right away for any new or worsening issues. Treatment Plan: As above Disposition: Discharge Impression: 1. Right flank pain 2. Cough This note was generated with [employer] dictation software. It may contain incorrect words, spelling, and punctuation that were not noted in review of the chart prior to signing ED Disposition - Plan for ED Patient: Referrals: Care Physician,No Primary [Primary Care Provider] -
--- NOTE | 2018-12-17 23:25 | ED.DEP ---
ED Disposition - Plan for ED Patient: Instructions: ED Flank Pain Uncertain Cause Prescriptions: Ondansetron [Zofran Odt] 4 mg PO Q8H PRN PRN #10 tab PRN Reason: Nausea Referrals: Paula rTivedi [NON-STAFF] -
[2018-12-17 23:35] VITALS: BP 118/75; PULSE 103; RESP 17; O2SAT 95
== END 2018-12-17 23:37 | disposition home or self-care (01) ==
LOC: ED 21:18
PROVIDERS: Emergency Provider Emergency Medicine
DX: R10.9 Unspecified abdominal pain (principal); R05 Cough; E11.9 Type 2 diabetes mellitus without complications; Z87.442 Personal history of urinary calculi; Z87.891 Personal history of nicotine dependence
CPT/HCPCS: 71045; 74176; 80053; 81001; 83690; 84484; 85025; 85379; 93005; 94640; 96361; 96374; 96375; 99285; J7030; A4216; J2405

== ENCOUNTER 2019-01-04 06:21 | Emergency (ER) | payer MEDICAID, SELFPAY ==
[2019-01-04 06:22] VITALS: BP 142/93; PULSE 141; RESP 18; TEMP 37.3; O2SAT 97; BMI 22.5
--- NOTE | 2019-01-04 06:37 | CT_ITS ---
STUDY: CT CERVICAL SPINE WITHOUT CONTRAST REASON FOR EXAM: Female, 48 years old. Status post fall. Right eye swollen. RADIATION DOSAGE (If Supplied By Facility): CTDIvol = ( 29.38 ) mGy, DLP = ( 635.61 ) mGycm TECHNIQUE: High resolution transaxial imaging was performed without contrast material. Sagittal and coronal images were reconstructed. Individualized dose optimization techniques were used for this CT. COMPARISON: None FINDINGS: Normal craniovertebral junction. Normal anterior atlantoaxial articulation. Normal odontoid process. There is straightening of the normal lordotic curve, a nonspecific finding, which may be due to positioning or which might be due to muscle spasm. Normal vertebral bodies and posterior osseous elements. C2-3: Normal endplates. Normal disc height and morphology. Normal central canal and intervertebral neuroforamina. C3-4: 2.5 mm anterolisthesis, on a degenerative basis. Normal endplates. Normal disc height and morphology. Degenerative changes right apophyseal and uncovertebral joints. Mild spinal stenosis with central canal AP diameter of 9 mm. . Mild narrowing right and normal left intervertebral neuroforamina. C4-5: Normal endplates. Small broad posterior disc protrusion. Mild spinal stenosis with central canal AP diameter of 9 mm.. Normal intervertebral neuroforamina. C5-6: Normal endplates. Small broad posterior disc protrusion. Mild spinal stenosis with central canal AP diameter of 9.5 mm.. Normal intervertebral neuroforamina. C6-7: Normal endplates. Small broad posterior disc protrusion. Mild spinal stenosis with central canal AP diameter of 9.5 mm.. Normal intervertebral neuroforamina. C7-T1: Normal endplates. Normal disc height and morphology. Normal central canal and intervertebral neuroforamina. Normal visualized soft tissue structures. CT/Spine Cervical without Contras IMPRESSION: Multilevel degenerative changes, as above, due to a combination of small disc protrusions and mild developmental spinal stenosis. No demonstrated fracture. Electronically Signed: Jonatan Hagen MD at 8:03 EDT , Service support ,
--- NOTE | 2019-01-04 06:37 | CT_ITS ---
STUDY: CT BRAIN WITHOUT CONTRAST REASON FOR EXAM: Female, 48 years old. Status post fall. Right eye swollen. RADIATION DOSAGE (If Supplied By Facility): CTDIvol = ( 44.99 ) mGy, DLP = ( 812.98 ) mGycm TECHNIQUE: Transaxial CT imaging of the brain was performed without administration of intravenous contrast material. Individualized dose optimization techniques were used for this CT. COMPARISON: No relevant priors. FINDINGS: There is a right periorbital skin hematoma. There is minimal soft tissue emphysema lateral to the right maxillary sinus, presumably related to facial fracture.. Normal calvarium. There are blowout fractures of the right orbital floor and medial wall the right orbit which will be discussed further in CT scan facial bone report. Normal size ventricles and extra-axial spaces for the patient's age. Normal white matter tracts of the cerebral hemispheres. Normal basal ganglia and thalami. Normal brainstem. Normal cerebellum. There is no intracranial hemorrhage. There are no findings of an acute ischemic infarction. There is a small amount of fluid in the posterior right maxillary sinus, presumably related to orbital floor fracture. There is mucoperiosteal thickening in the maxillary sinuses bilaterally, consistent with chronic disease. CT/Brain/Head without Contrast IMPRESSION: Normal unenhanced CT scan of the brain. Right orbital fractures. Electronically Signed: Jonatan Hagen MD at 7:44 EDT , Service support ,
--- NOTE | 2019-01-04 06:37 | CT_ITS ---
STUDY: CT FACIAL BONES WITHOUT CONTRAST REASON FOR EXAM: Female, 48 years old. Status post fall. Right eye swollen. RADIATION DOSAGE (If Supplied By Facility): CTDIvol = ( 13.20 ) mGy, DLP = ( 284.34 ) mGycm TECHNIQUE: The patient was scanned in a multi detector CT scanner. Sagittal and coronal images were reconstructed. Individualized dose optimization techniques were used for this CT. COMPARISON: CT scan brain done today. CT scan brain 05/12/2017. FINDINGS: There is a right periorbital skin hematoma. There is a small amount of air in soft tissues lateral to the right maxillary sinus. There is an acute blowout fracture of the right orbital floor with approximately 9 mm depression. There is anterior bowing of the right inferior rectus muscle into the fracture site, but without evidence fracture or muscle entrapment. Best appreciated on axial images 47-48, there is a slight deformity of the medial wall of the right orbit which was not present on the [address] scan and there is also minimal medial orbital emphysema, consistent with an acute fracture. There is no evidence for medial rectus muscle entrapment. There is a nondisplaced acute fracture traversing the nasal bridge. wNormal anterior nasal spine. 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 There are large untreated dental caries of upper left molar tooth #13, which is fragmented, and there is an overlying periapical abscess. There is mucoperiosteal thickening in the inferior left maxillary sinus, consistent with chronic sinusitis and possibly related to dental disease. There is a small amount of fluid in the right maxillary sinus which is probably related to orbital floor fracture. CT/Sinus/Facial Bone IMPRESSION: Acute blowout fracture of the right orbital floor with 9 mm inferior displacement of bone and orbital fat. There is inferior bowing of the right inferior rectus muscle into the fracture site, without evidence for direct muscle entrapment. Acute fracture of the medial wall of the right orbit, without significant deformity and without muscle entrapment. Acute fracture of the nasal bridge, without significant depression. 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 Untreated dental caries and periapical abscess of upper left molar tooth #13. No associated soft tissue abscess. Electronically Signed: Jonatan Hagen MD at 7:53 EDT , Service support ,
[2019-01-04 06:39] VITALS: PULSE 135; RESP 15
--- NOTE | 2019-01-04 06:40 | ED.RN ---
THIS NURSE OBSERVED THE PT STUMBLE INTO THE ER AND REST AGAINST THE WALL. THIS NURSE WENT TO THE PT AND HELPED HER GET TO A ROOM. PT STATED SHE DID NOT FEEL GOOD THAT HER STOMACH HURT AND SHE NEEDED HELP. THE PT HAS A LARGE SWOLLEN BLOODY LUMP ON THE RIGHT EYEBROW, THE EYE IS SWOLLEN SHUT. THE PT STATES THAT SHE FELL DOWN. THE PT WAS VERY HESITANT TO TAKE HER SHIRT OFF TO GET IN A GOWN, AND KEPT SAYING I'M SORRY ABOUT EVERY MOVE SHE MADE. WHEN THE BOYFRIEND ENTERED THE ROOM SHE GOT VERY ANXIOUS SO HE WAS ASKED TO LEAVE WHILE WE GOT HER CHECKED IN. THIS NURSE AND SINGH PICKENS ASKED THE PT MULTIPLE TIMES IF SHE FELT SAFE AT HOME THE PT WOULD PAUSE AND THEN SAY YES. THE PT STATED SHE FELL DOWN THE LAST TWO STAIRS AND HER FACE HURT AND PER THE PT SHE LAID ON THE FLOOR ALL NIGHT BEFORE THEY CAME IN. PT STATED THAT HER BELLY AND FACE HURT. THE PT DID START TO MENTION AN ARGUMENT WITH THE BOYFRIEND AND THEN SAID HER FACE HURT AND CHANGED THE SUBJECT. THE PT IS CURLED UP ON THE BED. THE MD WAS AT BEDSIDE. CHARGE NURSE CELIO AND MDR. CHANG AWARE OF THE SITUATION.
[2019-01-04] MEDS: Ondansetron ODT 4 MG Tablet PO (06:41)
[2019-01-04] MEDS: 0.9% Normal Saline 1,000 ML 999 ML IV ×2 (06:46→07:47)
--- NOTE | 2019-01-04 06:46 | EKG12_ITS ---
Test Reason : FALL Blood Pressure : / mmHG Vent. Rate : 137 BPM Atrial Rate : 137 BPM P-R Int : 120 ms QRS Dur : 078 ms QT Int : 288 ms P-R-T Axes : 078 090 031 degrees QTc Int : 434 ms Sinus tachycardia Rightward axis Nonspecific ST-Segment Abnormality Borderline ECG Confirmed by BINA VOSS, LANRE ([id number]), assistant production editor LETTY OCASIO ([id number]) on 01/06/2019 1:30:17 PM Referred By: BERNARDO Confirmed By:LANRE CURRAN MD
--- NOTE | 2019-01-04 07:15 | ED.VISSUMM ---
- ER Visit Summary Date of Service: 01/04/19 Chief Complaint: Fall History of Present Illness: The patient is a 48 F who presents after a fall. The patient says that overnight she was going down stairs with laundry. She said she tripped and fell down 2 stairs. She hit her face and head. She initially said no loss of consciousness, but then she was not sure. She said she woke up on the floor. She noted some swelling to her right eyebrow. The area is very painful. She says she was drinking alcohol last night. Denies any other drug use. Denies blood thinners. Denies abuse. History is limited as the patient gives short answers and makes poor eye contact. Physical Examination: Afebrile. Vital signs unremarkable except for heart rate of 141. Patient has a large hematoma to her right eyebrow with overlying abrasions. I do not appreciate any lacerations. Otherwise HEENT exam is unremarkable. Neck is nontender and shows normal inspection. Heart tachycardic but regular. Lungs clear in all valdez. Abdomen soft and nontender. Back is nontender. Extremities nontender and normal inspection. Neurovascularly intact distally. Cranial nerves grossly intact. Normal and symmetric strength and sensation. Patient is alert and oriented to the day, person, and place. She has a depressed mood and makes poor eye contact. Test Results: EKG, blood work, alcohol level, CT brain/face/cervical spine pending. Emergency Department Course and Treatment: Patient placed on a monitor and treated with a fluid bolus for her tachycardia. Will evaluate and EKG. Blood work pending including coagulation factors and CPK. Alcohol level pending. Imaging of her head neck and face are pending. I cannot identify any other painful areas or trauma. Patient also received Zofran while awaiting results. At this time, the patient is undergoing imaging. Patient will be signed out to the oncoming physician to check all results. Disposition is pending. Nursing did express some concerns that the patient may be unsafe. She was not answering questions when her significant other was in the room. I spoke with her in the presence of nursing only, and she denied abuse. She said that she feels safe. She denied being pushed and had no other concerns. Treatment Plan: As above Disposition: Pending further evaluation Impression: 1. Right eyebrow contusion 2. Intoxication by alcohol per history This note was generated with [employer] dictation software. It may contain incorrect words, spelling, and punctuation that were not noted in review of the chart prior to signing ED Disposition - Plan for ED Patient: Referrals: Care Physician,No Primary [Primary Care Provider] -
[2019-01-04] MEDS: Ondansetron 4 MG/2 ML Vial IV (07:30)
[2019-01-04 08:15] LABS: Absolute Lymphocyte Count 1.24 X10^3/ul (0.83-4.51); Absolute Neutrophil Count 3.4 X10^3/uL (2.0-7.7); Basophil# 0.05 X10^3/uL; Eosinophil# 0.34 X10^3/uL; Eosinophils% 6.5 % (0-5); Hematocrit 34.7 % (37-47); Hemoglobin 11.7 g/dl (12.0-15.0); Lymphocyte # 1.24 X10^3/ul (4.0); Lymphocyte % 23.6 % (19-41); Mean Corp Hgb Conc 33.7 g/gl (32-36); Mean Corpuscular Hgb 31.8 pg (27.0-32.0); Mean Corpuscular Volume 94.3 fL (81-99); Mean Platelet Vol. 8.8 fl (6.2-12.0); Monocyte# 0.22 X10^3/uL; Monocyte% 4.2 % (0-10); Neutrophil % 64.5 % (47-70); Platelet Count 178 K/mm3 (150-450); RBC Distribution Width SD 44.7 fl (35.1-43.9); Red Blood Count 3.68 M/mm3 (4.2-5.4); White Blood Count 5.3 K/mm3 (4.4-11.0)
[2019-01-04 08:16] LABS: POSITIVE COUNT NO; POSITIVE DIFFERENTIAL NO; POSITIVE MORPHOLOGY NO
[2019-01-04 08:19] LABS: Prothrombin Time (Protime)PT. 13.3 SECONDS (11.7-14.9)
[2019-01-04 08:20] LABS: Partial Thromboplast Time 25.7 Seconds (24.1-36.2)
[2019-01-04 08:27] LABS: ALB/GLOB Ratio 1.1 RATIO (0.9-2.4); AST(SGOT) 13 U/L (15-37); Alanine Aminotransfer ALT/SGPT 18 U/L (13-56); Albumin, Serum 3.6 g/dL (3.2-5.0); Alkaline Phosphatase 37 U/L (45-117); Anion Gap 13 (5-15); BUN 12 mg/dL (7-18); BUN/Creat Ratio 17.3 RATIO (10-20); CPK Total, Creatine Kinase 87 U/L (26-192); Chloride 112 mmol/L (98-107); EST Glomerular Filtration Rate 96 mL/min (>60); Est Glom Filt Rate - Afr Amer 117 mL/min (>60); Estimated Creatinine Clearance 79.42 ml/min; Globulin 3.2 g/dL (2.2-4.2); Glucose 111 mg/dL (74-106); Potassium 3.9 mmol/L (3.5-5.1); Protein, Total 6.8 g/dL (6.4-8.2); Sodium Level 147 mmol/L (136-145)
[2019-01-04 08:49] VITALS: BP 117/79; PULSE 124; RESP 16; O2SAT 98
[2019-01-04] MEDS: Acetaminophen 500 MG Tablet 1000 MG PO (09:09)
--- NOTE | 2019-01-04 09:24 | ED.DEP ---
ED Disposition - Plan for ED Patient: Disposition: Home or Assisted Living Instructions: ED Fx Face, ED Alcohol Intoxication, ED Fall Uncertain Cause Prescriptions: Hydrocodone Bitart/Apap 5-325 [[place] 5MG-325MG] 1 tablet PO Q6H PRN PRN 3 Days #10 tablet PRN Reason: Pain Ondansetron [Zofran Odt] 4 mg PO Q8H PRN PRN #10 tablet PRN Reason: Nausea Referrals: Bala Goldberg MD [STAFF PHYSICIAN] - 3-5 Days Additional Instructions: Please follow-up with either maxillofacial surgeon or plastic surgeon: Maxillofacial surgery Dr Howard Elizondo [phone] Tellez [phone]
--- NOTE | 2019-01-04 09:28 | DCINST.ED_ITS ---
ED Disposition - Plan for ED Patient: Disposition: Home or Assisted Living Instructions: ED Fx Face, ED Alcohol Intoxication, ED Fall Uncertain Cause Prescriptions: Hydrocodone Bitart/Apap 5-325 [[place] 5MG-325MG] 1 tablet PO Q6H PRN PRN 3 Days #10 tablet PRN Reason: Pain Ondansetron [Zofran Odt] 4 mg PO Q8H PRN PRN #10 tablet PRN Reason: Nausea Referrals: Bala Goldberg MD [STAFF PHYSICIAN] - 3-5 Days Additional Instructions: Please follow-up with either maxillofacial surgeon or plastic surgeon: Maxillofacial surgery Dr Howard Elizondo [phone] Tellez [phone]
[2019-01-04 09:49] VITALS: BP 126/74; PULSE 114; RESP 16; O2SAT 98
== END 2019-01-04 09:50 | disposition home or self-care (01) ==
PROVIDERS: Emergency Provider Emergency Medicine
DX: S02.31XA Fracture of orbital floor, right side, initial encounter for closed fracture (principal); S02.2XXA Fracture of nasal bones, initial encounter for closed fracture; S00.11XA Contusion of right eyelid and periocular area, initial encounter; F10.129 Alcohol abuse with intoxication, unspecified; E11.9 Type 2 diabetes mellitus without complications; Z87.891 Personal history of nicotine dependence; Y90.6 Blood alcohol level of 120-199 mg/100 ml; W10.9XXA Fall (on) (from) unspecified stairs and steps, initial encounter; Y93.E2 Activity, laundry; Y92.009 Unspecified place in unspecified non-institutional (private) residence as the place of occurrence of the external cause; Y99.8 Other external cause status
CPT/HCPCS: 36415; 70450; 70486; 72125; 80053; 80320; 82550; 85025; 85610; 85730; 93005; 96361; 96374; 99285; J7030; A4216; G0480; J2405

== ENCOUNTER 2019-06-17 14:05 | Inpatient (IN) | payer MEDICAID, SELFPAY ==
[2019-06-17] VITALS (7 sets, daily range): BP systolic 128–158; BP diastolic 64–107; PULSE 97–123; RESP 16–20; TEMP 36.8–37.2; O2SAT 97–100; BMI 21.2; BMI 21.3; BMI 21.5
--- NOTE | 2019-06-17 14:20 | ED.VISSUMM ---
- ER Visit Summary Date of Service: 06/17/19 Chief Complaint: Acute left flank pain with nausea and vomiting History of Present Illness: The patient is a 48 F history of kidney stones, cholecystectomy and hysterectomy. He states he was treated in urgent care on Thursday till August tract infection placed on Bactrim. She states she has had flank pain for approximately a week plus. Now she is having nausea vomiting and chills. She denies diarrhea. States she had a fever as high as 103 earlier in the week. Has a known history of kidney stones but states is never felt really like a kidney stone. Physical Examination: White female actively retching in the room with shaking chills. Vital signs are stable currently temperature 98. HEENT exam unremarkable perimetric memories. Neck nontender. No lymphadenopathy. Lungs clear to auscultation bilaterally. Heart tachycardic rate about 120 no murmur. Abdomen is soft. Nondistended normal bowel sounds no peritoneal signs. Mild left lower quadrant tenderness. Back left CVA tenderness. No spine tenderness. Patient moving all 4 extremities. Neurovascular intact. Nontender no edema. Neurologically she is awake and alert with no focal motor deficits. Test Results: CBC shows normal white count of 6. Hemoglobin 13. No bands. Chemistries unremarkable with a normal creatinine and gap. UA is pending she is been unable to urinate as of yet. Lactate is elevated 3.3 which may be secondary to several factors one of which is shaking chills.. Emergency Department Course and Treatment: Clinically the patient has pyelonephritis. Will be treated with IV fluids, IV morphine and Zofran. She is a second dose of Zofran and a dose of Phenergan because she is still having nausea and vomiting. Multiple repeat exams. Patient has been treated with multiple different nausea meds. She has given us a urine as of yet. She understands the importance of this to make a diagnosis. She will be checked out to the afternoon physician to make final disposition. I have told patient with pyelonephritis the way she is having shaking chills and nausea and vomiting I would strongly encourage her to be admitted. If the urine is negative she may need a CAT scan flank study due to her prior history of stones. Treatment Plan: Checked out the afternoon physician. Disposition: [] Impression: Acute left flank pain Acute nausea vomiting This note was generated with [employer] dictation software. It may contain incorrect words, spelling, and punctuation that were not noted in review of the chart prior to signing ED Disposition - Plan for ED Patient: Referrals: Care Physician,No Primary [Primary Care Provider] -
[2019-06-17] MEDS: Ondansetron 4 MG/2 ML Vial IV ×3 (14:40→18:29)
[2019-06-17] MEDS: Morphine 4 MG/ML Syringe 6 MG IV (14:40)
[2019-06-17] MEDS: 0.9% Normal Saline 1,000 ML 1000 ML IV (14:41)
[2019-06-17 14:48] LABS: Absolute Lymphocyte Count 0.72 X10^3/uL (0.83-4.51); Absolute Neutrophil Count 4.8 X10^3/uL (2.0-7.7); Basophil# 0.02 X10^3/uL; Basophil% 0.3 % (0-1); Hematocrit 38.9 % (37-47); Hemoglobin 13.7 g/dL (12.0-15.0); Lymphocyte # 0.72 X10^3/ul (4.0); Lymphocyte % 11.7 % (19-41); Mean Corp Hgb Conc 35.2 g/dL (32-36); Mean Corpuscular Hgb 34.3 pg (27.0-32.0); Mean Corpuscular Volume 97.3 fL (81-99); Monocyte# 0.56 X10^3/uL; Monocyte% 9.1 % (0-10); NRBC Flagged by Analyzer 0 % (0-5); Neutrophil # 4.81 X10^3/uL (2.7-7.7); Neutrophil % 78.6 % (47-70); Platelet Count 129 K/mm3 (150-450); RBC Distribution Width CV 13.5 % (11.6-14.6); RBC Distribution Width SD 48.9 fl (35.1-43.9); White Blood Count 6.1 K/mm3 (4.4-11.0)
[2019-06-17 15:01] LABS: Anion Gap 13 (5-15); BUN 10 mg/dL (7-18); BUN/Creat Ratio 13.5 RATIO (10-20); Calcium,Total 8.8 mg/dL (8.5-10.1); Chloride 101 mmol/L (98-107); Creatinine, Serum 0.74 mg/dL (0.55-1.02); EST Glomerular Filtration Rate 90 mL/min (>60); Est Glom Filt Rate - Afr Amer 109 mL/min (>60); Estimated Creatinine Clearance 75.13 ml/min; Glucose 116 mg/dL (74-106); Potassium 3.8 mmol/L (3.5-5.1); Sodium Level 138 mmol/L (136-145)
[2019-06-17 15:15] LABS: Lactic Acid 3.3 mmol/L (0.4-2.0)
[2019-06-17] MEDS: proMETHazine 25 MG/ML Syringe 12.5 MG IV (16:10)
[2019-06-17 16:21] LABS: Color, Urine Yellow (Yellow); Glucose, Dipstick Normal (Normal); Ketone-Dipstick 15 mg/dl (Negative); Leukocyte Esterase-Dipstick Negative /ul (Negative); Nitrite-Dipstick Negative (Negative); Occult Blood-Urine 10 /ul (Negative); Protein-Dipstick 30 mg/dl (Negative); Specific Gravity, Urine 1.015 (1.002-1.030); Urine Clarity Cloudy (Clear); Urine Urobilinogen 4 mg/dl (Normal); Urine pH 6.5 (5.0 - 8.0)
[2019-06-17 16:26] LABS: Urine Bilirubin Dipstick 1 mg/dL (Negative)
[2019-06-17 16:29] LABS: Mucous, Urine 2+ /hpf (<or=2+)
[2019-06-17 16:30] LABS: Bacteria 4+ /hpf (None Seen)
[2019-06-17 16:31] LABS: Red Blood Cells-Urine 0-5 SEEN /hpf (0-5); White Blood Cells 0-5 SEEN /hpf (0-5)
[2019-06-17 16:34] LABS: Squamous Epithelial Cells - UA 25-50 SEEN /hpf (5-10)
[2019-06-17] MEDS: Ceftriaxone 1 GM/50 ML BAG IV (16:45)
--- NOTE | 2019-06-17 16:59 | NURSING ---
MED SURG JOPPERI PYELONEPHRITIS
--- NOTE | 2019-06-17 17:17 | HP.PCM_ITS ---
Problem List (1) Pyelonephritis Status: Acute (2) Severe sepsis Status: Acute History of Present Illness Date of Admission: 06/17/19 Chief Complaint: flank pain The patient is a 48 year old F who was in her normal state of health up until last Thursday where patient started developing left flank pain and fever chills. Went to an urgent care and diagnosed as a pyelonephritis and received Keflex. She had a culture performed that came back later and the patient was then put on 3 days of trimethoprim/sulfamethoxazole. Patient completed that but is just felt worse and is now having nausea and vomiting unable to eat. Patient had a urinalysis here that showed some improvement presumably if the infection but patient was still having flank pain chills required pain medication as well as antiemetics. Patient did receive ceftriaxone in the emergency room. Patient was apprehensive about being admitted and would prefer to go home. I discussed with the patient that its most prudent to admit her as she is been actively vomiting and has not eaten anything over the past 24 hours. She was in agreement to being admitted for treatment of pyelonephritis. States that this is consistent with her previous episodes of pyelonephritis. Patient states that she has pyelonephritis about once a year. States that she only gets urinary tract infections with that pyelonephritis but not outside of those events. [] Past Medical History Medical History: Medical History (Last Reviewed 06/17/19 @ 17:19 by Jimbo Ding DO) Anxiety F41.9 Diabetes E11.9 H/O: hysterectomy Z90.710 Allergies iron [From Venofer] Allergy (Severe, Verified 06/17/19 14:06) Hives DIFFICULTY BREATHING latex Allergy (Verified 06/17/19 14:06) Rash Home Medications: Ambulatory Orders Medication Instructions Recorded Ondansetron [Zofran Odt] 4 mg PO Q8H PRN PRN #10 tab 12/17/18 Propranolol HCl 20 mg PO TID 06/17/19 Surgical History: Surgical History (Last Reviewed 06/17/19 @ 17:19 by Jimbo Ding DO) Bile leak K83.9 delivery delivered O82 H/O bone graft Z98.890 H/O laparoscopy Z98.890 History of suburethral sling procedure Z98.890 by 2018 gallbladder tubal ligation Surgical History: cholecystectomy, - - bile leak after gallbladder was taken out. 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 Smoking Status: Never smoker Tobacco Use: Cigarettes - *Family History Maternal Family History: Family History (Last Reviewed 06/17/19 @ 17:20 by Jimbo Ding DO) Father Cancer Heart disease Diabetes Mother Diabetes Grandfather Cancer Grandmother Cancer Aunt Cancer Brother Polycystic kidney History Items: Diabetes Paternal Family History: Family History (Last Reviewed 06/17/19 @ 17:20 by Jimbo Ding DO) Father Cancer Heart disease Diabetes Mother Diabetes Grandfather Cancer Grandmother Cancer Aunt Cancer Brother Polycystic kidney History Items: Heart Disease Review of Systems Constitutional: Reports: Anorexia, Chills, Fever, Malaise Eyes: Denies: Blurred vision, Double vision HEENT: Denies: Head Aches, Sinus Congestion, Sinus Drainage Cardiovascular: Denies: Chest Pain, Palpitations Respiratory: Denies: Cough, Shortness of breath at rest, Sputum production Gastrointestinal: Reports: Abdominal Pain - Left flank pain, Nausea, Vomiting. Denies: Diarrhea, Hematemesis, Hematochezia Genitourinary: Reports: Dysuria, Frequency Musculoskeletal: Denies: Joint Pain, Joint Tenderness Skin: Denies: Rash, Wounds Neurological: Denies: Numbness, Tingling, Focal weakness Psychiatric: Denies: Anxiety, Depression Hematologic/ Lymphatic: Denies: Easy Bruising, Easy Bleeding, Hx of blood clot Comment: Review systems otherwise negative except for as mentioned above and in HPI. VTE Information - Inpt Only VTE Present on Admission: No VTE Mechan Device Prophylaxis: None VTE Pharm Prophylaxis ordered?: Yes Patient Problems: Active and Suspected Problems (Last Reviewed 11/11/17 @ 12:02 by Venus Tollvier) Pyelonephritis (Acute) Severe sepsis (Acute) - Physical Exam Vitals/I&O's: Vital Signs Temp Pulse Resp BP Pulse Ox 37.1 C 104 H 18 137/103 H 99 06/17/19 16:08 06/17/19 16:57 06/17/19 16:57 06/17/19 16:57 06/17/19 16:57 Oxygen Delivery Method Room Air Weight: 52.8 kg Body Mass Index (BMI) 21.2 Finger Stick Blood Glucose 106 Intake and Output for Last 24 Hours 06/15/19 06/16/19 06/17/19 23:59 23:59 23:59 Intake Total 1050 / 1050 Balance 1050 / 1050 General: Alert, Cooperative, - - Uncomfortable. Reiger's. HEENT: Atraumatic, Normocephalic, - - No icterus Neck: No Nodes, Trachea Midline Lungs: Clear to auscultation, Normal air movement, No rhonchi, No wheeze, No rales Cardiovascular: Regular rate, Regular Rhythm, Normal S1, Normal S2, No murmurs Abdomen: Bowel Sounds Present, Soft, Non-Distended, - - Positive left flank tenderness with a left-sided costovertebral angle tenderness Extremities: No edema, No Calf Tenderness Skin: No rashes, No breakdown Musculoskeletal: No Tenderness to Palpation of Joints or Extremities, No Muscle Wasting Neurological: Muscle tone normal, Sensory exam intact to light touch and pain Psych/Mental Status: Appropriate, Anxious Laboratory Results 06/17/19 14:33: WBC 6.1, RBC 4.00 L, Hgb 13.7, Hct 38.9, MCV 97.3, MCH 34.3 H, MCHC 35.2, RDW Std Deviation 48.9 H, RDW Coeff of Leanne 13.5, Plt Count 129 L, MPV 10.0, Immature Gran % (Auto) 0.300, Neut % (Auto) 78.6 H, Lymph % (Auto) 11.7 L, [place] % (Auto) 9.1, Eos % (Auto) 0.0, Baso % (Auto) 0.3, Absolute Neuts (auto) 4.8, Absolute Lymphs (auto) 0.72 L, Nucleated RBC % 0 06/17/19 14:33: Sodium 138, Potassium 3.8, Chloride 101, Carbon Dioxide 24.0, Anion Gap 13, BUN 10, Creatinine 0.74, Estim Creat Clear Calc 75.13, Est GFR (MDRD) Af Amer 109, Est GFR (MDRD) Non-Af 90, BUN/Creatinine Ratio 13.5, Glucose 116 H, Calcium 8.8 06/17/19 14:33: Lactic Acid 3.3 H 06/17/19 16:08: Urine Color Yellow, Urine Clarity Cloudy, Urine pH 6.5, Ur Specific [place] 1.015, Urine Protein 30 H, Urine Glucose (UA) Normal, Urine Ketones 15 H, Urine Occult Blood 10 H, Urine Nitrite Negative, Urine Bilirubin 1 H, Urine Urobilinogen 4 H, Ur Leukocyte Esterase Negative, Urine RBC 0-5 SEEN, Urine WBC 0-5 SEEN, Ur Squamous Epith Cells 25-50 SEEN, Urine Bacteria 4+, Urine Mucus 2+ Assessment/Plan All Active Problems (Last Reviewed 11/11/17 @ 12:02 by Venus Tolliver) Pyelonephritis (Acute) Severe sepsis (Acute) Splenomegaly (Resolved) Coffee ground emesis (Acute) Anemia (Resolved) Diabetes (Acute) Abnormal Pap smear of cervix (Acute) Abnormal uterine bleeding (Acute) Stress incontinence of urine (Acute) Endometriosis determined by laparoscopy (Acute) Chronic pelvic pain in female (Acute) Pyelonephritis (Acute) 1. Acute pyelonephritis * Patient had a culture performed at the urgent care and was changed over from Keflex over to trimethoprim/sulfamethoxazole which he only did 3 days though knowingly being treated for pyelonephritis. * Patient received ceftriaxone in the emergency room and I will continue with that. * Urine culture performed. * Adjust antibiotics accordingly * Sitter imaging if patient's course does not improve 2. Severe sepsis * Patient meeting 2 out of 4 Sirs criteria with heart rate greater than 120, respiratory rate of 20. Severe sepsis confirmed with the lactic acid of 3.3 * Secondary to the pyelonephritis * Patient will receive IV fluids * I will add on blood cultures 3. VTE prophylaxis: Moderate risk. Enoxaparin. Patient is currently in agreement to being hospitalized and understands that she could potentially get worse if she were to go home now. Since she is unable to eat and therefore unable to take any pills at this time. Told her that we would like to get her to the point where she is overall doing better and able to eats and take medications orally. Code Visit Inpatient E&M: 53381 Init Hosp L3
[2019-06-17] MEDS: 0.9% Normal Saline 1,000 ML 150 ML IV (18:17)
--- NOTE | 2019-06-17 18:24 | NURSING ---
lactic acid redraw just done by lab, will await results.
[2019-06-17] MEDS: Morphine 2 MG/ML Syringe IV ×2 (18:29→21:33)
[2019-06-17 18:43] LABS: Reflex Lactate? Y
[2019-06-17 20:47] LABS: Lactic Acid 3.6 mmol/L (0.4-2.0)
[2019-06-17] MEDS: Propranolol 10 MG Tablet 20 MG PO (21:33)
[2019-06-17] MEDS: oxyCODONE 5 MG Tablet PO (22:29)
[2019-06-18 00:24] LABS: Lactic Acid 1.4 mmol/L (0.4-2.0)
[2019-06-18] MEDS: 0.9% Normal Saline 1,000 ML 150 ML IV (01:00)
[2019-06-18 02:16] VITALS: BP 141/95; PULSE 80; RESP 16; TEMP 36.9; O2SAT 95
[2019-06-18] MEDS: Ondansetron 4 MG/2 ML Vial IV ×2 (02:18→21:29)
[2019-06-18] MEDS: Morphine 2 MG/ML Syringe IV ×2 (02:18→08:40)
[2019-06-18] MEDS: oxyCODONE 5 MG Tablet PO ×4 (03:46→19:11)
[2019-06-18] MEDS: Ibuprofen 400 MG Tablet PO (05:49)
[2019-06-18] MEDS: Propranolol 10 MG Tablet 20 MG PO ×3 (05:49→21:10)
[2019-06-18 07:23] LABS: Absolute Lymphocyte Count 1.74 X10^3/uL (0.83-4.51); Absolute Neutrophil Count 2.4 X10^3/uL (2.0-7.7); Basophil# 0.02 X10^3/uL; Basophil% 0.4 % (0-1); Eosinophil# 0.24 X10^3/uL; Hematocrit 32.1 % (37-47); Hemoglobin 10.5 g/dL (12.0-15.0); Lymphocyte # 1.74 X10^3/ul (4.0); Lymphocyte % 36.3 % (19-41); Mean Corp Hgb Conc 32.7 g/dL (32-36); Mean Corpuscular Hgb 33.3 pg (27.0-32.0); Mean Corpuscular Volume 101.9 fL (81-99); Mean Platelet Vol. 9.9 fl (6.2-12.0); Monocyte# 0.41 X10^3/uL; Monocyte% 8.6 % (0-10); NRBC Flagged by Analyzer 0 % (0-5); Neutrophil # 2.36 X10^3/uL (2.7-7.7); Neutrophil % 49.3 % (47-70); POSITIVE COUNT YES; Platelet Count 85 K/mm3 (150-450); RBC Distribution Width CV 13.7 % (11.6-14.6); RBC Distribution Width SD 51.5 fl (35.1-43.9); Red Blood Count 3.15 M/mm3 (4.2-5.4); White Blood Count 4.8 K/mm3 (4.4-11.0)
[2019-06-18 07:27] LABS: Differential Indicated SCAN CRITERIA MET
[2019-06-18 08:00] LABS: Anion Gap 8 (5-15); BUN 7 mg/dL (7-18); BUN/Creat Ratio 11.8 RATIO (10-20); Calcium,Total 7.1 mg/dL (8.5-10.1); Chloride 109 mmol/L (98-107); Creatinine, Serum 0.59 mg/dL (0.55-1.02); EST Glomerular Filtration Rate 115 mL/min (>60); Est Glom Filt Rate - Afr Amer 140 mL/min (>60); Estimated Creatinine Clearance 94.23 ml/min; Glucose 82 mg/dL (74-106); Potassium 3.7 mmol/L (3.5-5.1); Sodium Level 140 mmol/L (136-145)
[2019-06-18 08:07] LABS: Differential Comment SCANNED; Platelet Estimate SLT DEC (ADEQ)
--- NOTE | 2019-06-18 08:17 | CT_ITS ---
STUDY: CT ABDOMEN AND PELVIS WITHOUT CONTRAST REASON FOR EXAM: Female, 48 years old. Left flank pain, sepsis and pyelonephritis. RADIATION DOSAGE (If Supplied By Facility): CTDIvol = ( 6.04 ) mGy, DLP = ( 312.60 ) mGycm TECHNIQUE: Transaxial images were obtained from the dome of the diaphragm to the symphysis pubis without oral contrast, and without intravenous contrast. Sagittal and coronal images were reconstructed. Individualized dose optimization techniques were used for this CT. COMPARISON: 12/17/2016. FINDINGS: The visualized portions of lung bases demonstrate mild stranding in the right middle lobe which may be due to scarring. The visualized portions of the heart are within normal limits. Normal liver. There are surgical clips in the gallbladder fossa consistent with a prior cholecystectomy. Normal spleen. Normal pancreas. Normal bilateral adrenal glands. There again are small tiny bilateral nonobstructing renal stones. There is no evidence of hydronephrosis. No abnormal calcifications are seen in the expected courses of the ureters bilaterally. Normal visualized stomach. There are nonspecific somewhat fluid-filled small bowel loops. There is no evidence of bowel obstruction. There is fecal retention. There is diverticulosis of the sigmoid colon. There is no evidence of acute diverticulitis. There is mild thickening of the rectosigmoid colon which could be due to underdistention. Colitis is less likely. The appendix appears to be unremarkable but this suboptimally visualized (axial images 35-38 series 2 and coronal images 50-53 series 601). Normal abdominal aorta. Normal inferior vena cava. Normal retroperitoneum. Normal urinary bladder. Normal abdominal wall. Normal osseous structures. CT/Abdomen/Pelvis without Cont IMPRESSION: 1. Small tiny bilateral nonobstructing renal stones. No evidence of hydronephrosis. 2. Diverticulosis without evidence of acute diverticulitis. 3. Status post cholecystectomy. 4. Mild thickening of the rectosigmoid colon probably due to underdistention. Colitis is less likely. Electronically Signed: Onel Cantu MD at 9:33 EDT Tel , Service support ,
--- NOTE | 2019-06-18 08:19 | PN_ITS ---
Patient Problems: Active and Suspected Problems (Last Reviewed 06/17/19 @ 17:19 by Jimbo Ding DO) Pyelonephritis (Acute) Severe sepsis (Acute) Subjective: Chief complaint: Follow-up after admission for suspected acute pyelonephritis with severe sepsis. Patient seen and examined. No acute events overnight. Her left flank pain is improving but still there and she still having left CVA tenderness. She denied fever chills overnight. She complained of low urine output, no dysuria or hematuria. This morning, she is afebrile, slightly tachycardic, blood pressure is maintained, pulse ox is 97% on room air. - Physical Exam Vitals/I&O's: Vital Signs Temp Pulse Resp BP Pulse Ox 98.5 F 80 16 141/95 H 95 06/18/19 02:16 06/18/19 02:16 06/18/19 02:16 06/18/19 02:16 06/18/19 02:16 Oxygen Delivery Method Room Air Weight: 118 lb Body Mass Index (BMI) 21.5 Finger Stick Blood Glucose 106 Intake and Output for Last 24 Hours 06/16/19 06/17/19 06/18/19 23:59 23:59 23:59 Intake Total 1050 / 1250 1400 / 1400 Output Total 700 / 700 Balance 1050 / 1250 700 / 700 General: Alert, Oriented x3, Cooperative, No apparent distress HEENT: Atraumatic, PERRLA, EOMI, Normocephalic Oral: Moist Mucosa, No Gingival or Mucosal Lesions/ Ulcerations Neck: Supple, No JVD, Negative Carotid Bruits, Trachea Midline, Thyroid Normal Size and Texture Lungs: Clear to auscultation, Normal air movement, No rhonchi, No wheeze, No rales Cardiovascular: Regular rate, Regular Rhythm, Normal S1, Normal S2, PMI Normal, Tachycardic Abdomen: Bowel Sounds Present, Soft, Non Tender, Non-Distended, No Hepato- splenomegaly, - - Minimal left CVA tenderness. Extremities: No clubbing, No cyanosis, No edema Skin: No rashes, No breakdown Lymphatic: No Cervical, Supraclavicular, or Inguinal Adenopathy Neurological: Cranial nerves II-XII grossly intact, Motor Exam 5/5 strength throughout Psych/Mental Status: Normal Affect, Appropriate, Alert and oriented to time, place, person, mood and affect Laboratory Results 06/17/19 14:33: WBC 6.1, RBC 4.00 L, Hgb 13.7, Hct 38.9, MCV 97.3, MCH 34.3 H, MCHC 35.2, RDW Std Deviation 48.9 H, RDW Coeff of Leanne 13.5, Plt Count 129 L, MPV 10.0, Immature Gran % (Auto) 0.300, Neut % (Auto) 78.6 H, Lymph % (Auto) 11.7 L, [place] % (Auto) 9.1, Eos % (Auto) 0.0, Baso % (Auto) 0.3, Absolute Neuts (auto) 4.8, Absolute Lymphs (auto) 0.72 L, Nucleated RBC % 0 06/17/19 14:33: Sodium 138, Potassium 3.8, Chloride 101, Carbon Dioxide 24.0, Anion Gap 13, BUN 10, Creatinine 0.74, Estim Creat Clear Calc 75.13, Est GFR (MDRD) Af Amer 109, Est GFR (MDRD) Non-Af 90, BUN/Creatinine Ratio 13.5, Glucose 116 H, Calcium 8.8 06/17/19 14:33: Lactic Acid 3.3 H 06/17/19 16:08: Urine Color Yellow, Urine Clarity Cloudy, Urine pH 6.5, Ur Specific [place] 1.015, Urine Protein 30 H, Urine Glucose (UA) Normal, Urine Ketones 15 H, Urine Occult Blood 10 H, Urine Nitrite Negative, Urine Bilirubin 1 H, Urine Urobilinogen 4 H, Ur Leukocyte Esterase Negative, Urine RBC 0-5 SEEN, Urine WBC 0-5 SEEN, Ur Squamous Epith Cells 25-50 SEEN, Urine Bacteria 4+, Urine Mucus 2+ 06/17/19 19:25: Lactic Acid 3.6 H 06/17/19 23:51: Lactic Acid 1.4 06/18/19 06:34: WBC 4.8, RBC 3.15 L, Hgb 10.5 L, Hct 32.1 L, MCV 101.9 H, MCH 33.3 H, MCHC 32.7, RDW Std Deviation 51.5 H, RDW Coeff of Leanne 13.7, Plt Count 85 L, MPV 9.9, Immature Gran % (Auto) 0.400, Neut % (Auto) 49.3, Lymph % (Auto) 36.3, [place] % (Auto) 8.6, Eos % (Auto) 5.0, Baso % (Auto) 0.4, Absolute Neuts (auto) 2.4, Absolute Lymphs (auto) 1.74, Nucleated RBC % 0, Differential Comment SCANNED, Platelet Estimate SLT 06/18/19 06:34: Sodium 140, Potassium 3.7, Chloride 109 H, Carbon Dioxide 23.0, Anion Gap 8, BUN 7, Creatinine 0.59, Estim Creat Clear Calc 94.23, Est GFR (MDRD) Af Amer 140, Est GFR (MDRD) Non-Af 115, BUN/Creatinine Ratio 11.8, Glucose 82, Calcium 7.1 L Current Medications Acetaminophen (Tylenol) 650 mg PO Q6H PRN PRN PRN Reason: Pain Score 1-3/Temp > 100.7 F Dextrose (D50w Syringe) 0 gm IV X1 PRN; Protocol PRN Reason: Hypoglycemia Enoxaparin Sodium (Lovenox) 40 mg SC DAILY@1000 SUDEEP Glucagon () 1 mg IM .X1 PRN PRN Reason: Hypoglycemia Ibuprofen (Motrin) 400 mg PO Q4H PRN PRN PRN Reason: Pain Score 1-3/Temp > 100.7 F Last Admin: 06/18/19 05:49 Dose: 400 mg Documented by: Melatonin (Melatonin) 3 mg PO QHS PRN PRN PRN Reason: INSOMNIA Morphine Sulfate () 2 mg IV Q3H PRN PRN PRN Reason: Pain Score 6-10/10 Last Admin: 06/18/19 02:18 Dose: 2 mg Documented by: Nutritional Formula (Lactose Free) (Ensure Enlive) 120 ml PO 4X/DAY [facility] Last Admin: 06/17/19 21:33 Dose: 120 ml Documented by: Ondansetron HCl (Zofran) 4 mg IV Q8H PRN PRN PRN Reason: NAUSEA/VOMITING Last Admin: 06/18/19 02:18 Dose: 4 mg Documented by: Oxycodone HCl (Oxyir) 5 mg PO Q4H PRN PRN PRN Reason: Pain Score 4-5/10 Last Admin: 06/18/19 03:46 Dose: 5 mg Documented by: Propranolol HCl (Inderal) 20 mg PO TID [facility] Last Admin: 06/18/19 05:49 Dose: 20 mg Documented by: Medical Necessity - Tobacco Use Smoking Status: Never smoker Assessment/Plan All Active Problems (Last Reviewed 06/17/19 @ 17:19 by Jimbo Ding DO) Pyelonephritis (Acute) Severe sepsis (Acute) This is a 48 years old female patient presented to the emergency room because of left flank pain with nausea and vomiting and she was found to have suspected acute pyelonephritis with severe sepsis. #1 suspected left acute pyelonephritis/severe sepsis: She is on IV Rocephin. She has been on IV fluids. She has been afebrile, no leukocytosis. Slightly tachycardic, blood pressure stable. Lactic acid is back to normal. She is still symptomatic complaining of left flank pain but improved. She does have a history of kidney stones and history of pyelonephritis in the past as well. Blood and urine cultures are pending. Plan: Increase IV Rocephin to 2 g daily, CT scan abdomen and pelvis without contrast, continue other treatments, restart IV fluids. #2 essential tremor: Continue propranolol. #3 DVT prophylaxis: Subcu Lovenox. This note was generated with DocDoc dictation software. It may contain incorrect words, spelling, and punctuation that were not noted in checking the note before signing. Code Visit Inpatient E&M: 29566 Subs Hosp L2
[2019-06-18 08:39] VITALS: BP 152/88; PULSE 78; RESP 16; TEMP 36.3; O2SAT 96
[2019-06-18] MEDS: 0.9% Normal Saline 1,000 ML 100 ML IV ×2 (08:41→20:09)
[2019-06-18] MEDS: Enoxaparin 40 MG/0.4 ML Syringe SC (10:15)
[2019-06-18 14:33] VITALS: BP 126/75; PULSE 77; RESP 18; TEMP 37.1; O2SAT 98
[2019-06-18 14:40] VITALS: PULSE 80
--- NOTE | 2019-06-18 15:55 | CM.UR ---
RN CM Assessment Introduced role of RN CM to patient. Patient is alert and able to participate in RN CM Assessment. Care providers, pharmacy, and demographics verified. No family at bedside. Presentation: Left flank pain, nausea and vomiting Admit Dx: Sepsis, pyelonephritis Re-Admit: No Barriers/Issues: no pcp, lack of motivation. She was here a year ago and had just moved to the area. She did not have a pcp then so we gave her list at that time. However still no pcp. PCP: None. List given again. Specialists: none Preferred Pharmacy: [facility] Insurance: [facility] medicaid Rx Benefit: yes through medicaid plan LNOK: Kayden Carbajal, Significant other LW/HPOA: None. Declines booklet/additional information at this time. ADL?s: Independent with all. Transportation: drives self DME: None DME co: no preference HHC: None SNF: None Goal: Home DC PLAN: Home, no needs identified other for her to obtain a pcp. Amanda Macedo RN, CCM.
[2019-06-18 20:12] VITALS: BP 134/91; PULSE 75; RESP 16; TEMP 36.7; O2SAT 98
[2019-06-19 02:12] VITALS: BP 143/96; PULSE 77; RESP 16; TEMP 36.9; O2SAT 100
[2019-06-19] MEDS: Ibuprofen 400 MG Tablet PO ×2 (02:16→08:42)
[2019-06-19] MEDS: 0.9% Normal Saline 1,000 ML 100 ML IV (03:47)
[2019-06-19] MEDS: Propranolol 10 MG Tablet 20 MG PO (05:34)
[2019-06-19] MEDS: oxyCODONE 5 MG Tablet PO (05:36)
--- NOTE | 2019-06-19 08:57 | DCINST_ITS ---
- Discharge Diagnoses Current Active Problems: Current Active and Chronic Problems (Last Reviewed 06/17/19 @ 17:19 by Jimbo Ding DO) Essential tremor (Chronic) Pyelonephritis (Acute) Severe sepsis (Acute) You will use the following diet at home:: Regular Your food should be the consistency of: Regular Discharge Activity: Return to Normal Activity Weight Bearing Status: Full weight bearing Call your doctor if you observe: Fever of 101 or Higher, Shortness of breath, Dizziness, Fainting spells, Chest pain, Increased palpitations (irregular heartbeat), Uncontrolled pain Additional Instructions: Use Aleve or Tylenol PRN for pain. Allergies/Adverse Reactions: Allergies iron [From Venofer] Allergy (Severe, Verified 06/17/19 14:06) Hives DIFFICULTY BREATHING latex Allergy (Verified 06/17/19 14:06) Rash Medications to take at Discharge Propranolol HCl 20 mg PO TID 06/17/19 Ondansetron [Zofran Odt] 4 mg PO Q8H PRN PRN #10 tab 06/19/19 levoFLOXacin tablet [Levaquin tablet] 750 mg PO DAILY #7 tab 06/19/19 The following prescriptions were given: levoFLOXacin tablet [Levaquin tablet] 750 mg PO DAILY #7 tab Transmission Status: Pending to [facility] Ondansetron [Zofran Odt] 4 mg PO Q8H PRN PRN #10 tab PRN Reason: Nausea Transmission Status: Pending to [facility] Primary Care Physician: Care Physician,No Primary [Primary Care Provider] - Please follow up with your Primary Care Physician in: 1 week. Test Results: Test results from this visit will be discussed in further detail at your follow- up appointment, if applicable.
[2019-06-19 09:00] VITALS: BP 151/85; PULSE 69; RESP 18; TEMP 36.9; O2SAT 98
--- NOTE | 2019-06-19 11:12 | PCM.DC.SUM ---
Discharge Date and Diagnosis Date of Admission: 06/17/19 Date of Discharge: 06/19/19 - Primary Discharge Diagnosis #1 acute cystitis/probable acute left pyelonephritis. #2 severe sepsis. - Secondary Discharge Diagnosis Chronic Problems (Last Reviewed 06/17/19 @ 17:19 by Jimbo Ding DO) Essential tremor (Chronic) Chronic pelvic pain in female (Chronic) Hospital Course and Treatment Imaging Results: Clinical Impression(s) from Imaging Studies Abdomen/Pelvis CT 06/18/19 08:17 IMPRESSION: 1. Small tiny bilateral nonobstructing renal stones. No evidence of hydronephrosis. 2. Diverticulosis without evidence of acute diverticulitis. 3. Status post cholecystectomy. 4. Mild thickening of the rectosigmoid colon probably due to underdistention. Colitis is less likely. Electronically Signed: Onel Cantu MD at 9:33 EDT Tel , Service support , Operations: None Procedures: None Summary of Care Provided: Patient seen and examined on day of discharge and appeared to be stable to be discharged home. Left flank pain is significantly improved. She denies any urinary symptoms. Denies fever or chills. Her vital signs are stable. The patient is a 48 year old F patient presented to the emergency room because of left flank pain with nausea and vomiting and she was found to have severe sepsis secondary to acute cystitis and probable left acute pyelonephritis. On admission, patient was tachycardic, tachypneic and her lactic acid was 3.3 consistent with severe sepsis. Urinalysis revealed cloudy urine, negative for nitrite and leukocyte esterase, there was only 0-5 WBCs but there was 4+ bacteria. Patient was treated with IV fluids and IV Rocephin. Her lactic acid returned back to normal. Her vital signs stabilized and she remained afebrile for more than 24 hours. Her left flank pain improved. CT scan abdomen and pelvis without contrast revealed small tiny bilateral nonobstructing kidney stones without evidence of hydronephrosis. Blood culture showed no growth up to the time of discharge. Urine culture revealed staph epidermidis, low colony count and this could be due to skin contamination. On the day of discharge, patient felt much better, denies any complaints, left flank pain improved and she requested to be discharged. Patient discharged home in a stable medical condition, discharged on Levaquin 750 mill grams p.o. daily for 7 days to complete total of 10 days of treatment for acute cystitis and probable pyelonephritis, recommended follow-up with PCP in 1 week. - Physical Exam Vitals/I&O's: Vital Signs Temp Pulse Resp BP Pulse Ox 98.5 F 69 18 151/85 H 98 06/19/19 09:00 06/19/19 09:00 06/19/19 09:00 06/19/19 09:00 06/19/19 09:00 Oxygen Delivery Method Room Air Weight: 118 lb 0.003 oz Body Mass Index (BMI) 21.5 Finger Stick Blood Glucose 106 Intake and Output for Last 24 Hours 06/17/19 06/18/19 06/19/19 23:59 23:59 22:59 Intake Total 1050 / 1250 3450 / 3650 2758.33 / 2758.33 Output Total 950 / 1070 1470 / 1470 Balance 1050 / 1250 2500 / 2580 1288.33 / 1288.33 General: Alert, Oriented x3, Cooperative, No apparent distress HEENT: Atraumatic, PERRLA, EOMI, Normocephalic Oral: Moist Mucosa, No Gingival or Mucosal Lesions/ Ulcerations Neck: Supple, No JVD, Negative Carotid Bruits, Trachea Midline, Thyroid Normal Size and Texture Lungs: Clear to auscultation, Normal air movement, No rhonchi, No wheeze, No rales Cardiovascular: Regular rate, Regular Rhythm, Normal S1, Normal S2, PMI Normal Abdomen: Bowel Sounds Present, Soft, Non Tender, Non-Distended, No Hepato-splenomegaly Extremities: No clubbing, No cyanosis, No edema Skin: No rashes, No breakdown Lymphatic: No Cervical, Supraclavicular, or Inguinal Adenopathy Neurological: Cranial nerves II-XII grossly intact, Neuro grossly intact Psych/Mental Status: Normal Affect, Appropriate Microbiology Past 72 Hours 06/17/19 16:08 Urine, Clean Catch Urine Culture - Final Staphylococcus epidermidis Discharge Activity: Return to Normal Activity Weight Bearing Status: Full weight bearing Call your doctor if you observe: Fever of 101 or Higher, Shortness of breath, Dizziness, Fainting spells, Chest pain, Increased palpitations (irregular heartbeat), Uncontrolled pain Home Medications: Medications to take at Discharge Propranolol HCl 20 mg PO TID 06/17/19 Ondansetron HCl [Zofran] 4 mg PO TID PRN PRN #14 tab 06/19/19 levoFLOXacin tablet [Levaquin tablet] 750 mg PO DAILY #7 tab 06/19/19 Following Prescrptions Were Given to Patient: levoFLOXacin tablet [Levaquin tablet] 750 mg PO DAILY #7 tab Transmission Status: Received by [facility] Ondansetron HCl [Zofran] 4 mg PO TID PRN PRN #14 tab PRN Reason: Nausea/Vomiting Transmission Status: Received by [facility] Primary Care Physician: Care Physician,No Primary [Primary Care Provider] - Please follow up with your Primary Care Physician in: 1 week. Disposition: Home Minutes spent on discharge:: 27 Patient Condition:: Stable Medical Necessity - Tobacco Use Smoking Status: Never smoker Tobacco Use: Cigarettes Meaningful Use Info Meaningful Use Diagnoses (Choose all that apply): None applicable Code Visit Inpatient E&M: 53055 Disch Hosp
== END 2019-06-19 09:24 | disposition home or self-care (01) | DRG 720 ==
LOC: ED 14:29 → MS3 17:30
PROVIDERS: Hospitalist; Emergency Provider Emergency Medicine; Visit Provider Hospitalist
DX: A41.9 Sepsis, unspecified organism (principal); R65.20 Severe sepsis without septic shock; N30.00 Acute cystitis without hematuria; G25.0 Essential tremor; G89.29 Other chronic pain; R10.2 Pelvic and perineal pain; Z87.442 Personal history of urinary calculi; F41.9 Anxiety disorder, unspecified; E11.9 Type 2 diabetes mellitus without complications; Z79.899 Other long term (current) drug therapy
CPT/HCPCS: 36415; 74176; 80048; 81001; 83605; 85025; 87040; 87077; 87086; 87088; 87186; 97802; 99285; 99406; J7030; A4216; J0696; J2405

== ENCOUNTER 2020-02-13 17:30 | Emergency (ER) | payer BC, MEDICAID, SELFPAY ==
[2020-02-13 17:30] VITALS: BMI 21.2
[2020-02-13 17:31] VITALS: BP 151/118; PULSE 150; RESP 20; TEMP 36.6; O2SAT 95; BMI 21.0
[2020-02-13 18:10] VITALS: BP 151/93; PULSE 117; RESP 16; O2SAT 97
--- NOTE | 2020-02-13 18:15 | EKG12_ITS ---
Test Reason : Blood Pressure : / mmHG Vent. Rate : 139 BPM Atrial Rate : 139 BPM P-R Int : 122 ms QRS Dur : 074 ms QT Int : 272 ms P-R-T Axes : 078 089 069 degrees QTc Int : 413 ms Sinus tachycardia Nonspecific ST abnormality Abnormal ECG Confirmed by MURRAY JAMES ([id number]), assistant film editor LETTY OCASIO ([id number]) on 02/16/2020 11:43:07 AM Referred By: Confirmed By:MURRAY JAMES
--- NOTE | 2020-02-13 18:17 | ED.VIS.GEN ---
History of Present Illness Chief Complaint: Chest Pain Informant: Patient Narrative: Patient states for about the past 3 days she has had a sore throat. Today she notes nausea vomiting diarrhea. She denies any fevers. She notes some rhinorrhea. She notes a cramping abdominal pain located around her umbilicus. After throwing up most of the day she began to have a pain on the left side of her chest going into her back. It is been constant since its onset this afternoon. She takes propranolol for essential tremor otherwise denies significant medical history. Past Medical History - Allergies and Home Meds Allergies/Adverse Reactions: Allergies iron [From Venofer] Allergy (Severe, Verified 06/17/19 14:06) Hives DIFFICULTY BREATHING latex Allergy (Verified 06/17/19 14:06) Rash Primary Care Physician: Aquiles Dimas III, MD [STAFF PHYSICIAN] - 3-5 Days if not improving Surgical History: cholecystectomy, - - bile leak after gallbladder was taken out. 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 Smoking Status: Never smoker - Family History Maternal Family History: Family History (Last Reviewed 06/17/19 @ 17:[address] Jimbo Ding DO) Father Cancer Heart disease Diabetes Mother Diabetes Grandfather Cancer Grandmother Cancer Aunt Cancer Brother Polycystic kidney Family History: Reports: Diabetes Paternal Family History: Family History (Last Reviewed 06/17/19 @ 17:[address] Jimbo Ding DO) Father Cancer Heart disease Diabetes Mother Diabetes Grandfather Cancer Grandmother Cancer Aunt Cancer Brother Polycystic kidney Family History: Reports: Heart Disease Review of Systems General: Denies: Chills, Fever, Sweats Eyes: Denies: Visual changes - bilaterally, Diplopia ENT: Reports: Sore throat. Denies: Rhinorrhea Cardiovascular: Reports: Chest pain. Denies: Palpitations Respiratory: Denies: Dyspnea, Cough, Dyspnea on exertion Gastrointestinal: Reports: Abdominal pain, Nausea, Vomiting, Diarrhea. Denies: Melena, Hematochezia Genitourinary: Denies: Dysuria, Hematuria, Frequency Musculoskeletal: Denies: Back pain, Extremity Pain Skin: Denies: Rash, Wounds Neurological: Denies: Headache, Weakness, Numbness Physical Exam Vital Signs/Narrative: Vital Signs Temp Pulse Resp BP Pulse Ox 02/13/20 17:31 97.8 F 150 H 20 H 151/118 H 95 Inital Vital Signs reviewed: Yes General: Well nourished, Well developed, No Acute Distress Head: Normocephalic, Atraumatic Eyes: Perrl, EOMI ENT: Moist mucous membranes, No rhinorrhea Neck: Supple, Nontender Cardiovascular: Regular rate, No murmurs, Tachycardia Respiratory: No distress, CTA bilaterally, Chest nontender Abdomen: Soft, Nondistended, Normal bowel sounds, Tender. Negative for: Guarding, Rebound tenderness Back: Nontender, Normal Inspection Extremities: Nontender, No edema Skin: Normal color, No rash Neurological: Alert, Oriented x3, Cranial nerves II-XII grossly intact, Normal Strength, Normal Sensation Psychological: Tearful Diagnostic/Tx/Re-eval Clinical Impression(s) from Imaging Studies Chest X-Ray 02/13/20 18:37 IMPRESSION: There are findings consistent with COPD. There is no evidence of acute chest disease. Electronically Signed: Molina Jacques MD at 20:01 EDT , Service support , Abdomen/Pelvis CT 02/13/20 20:01 IMPRESSION: Cannot exclude bowel wall thickening. Cannot exclude enteritis or especially colitis. Likely chronic sigmoid thickening. Electronically Signed: Molina Jacques MD at 21:03 EDT , Service support , Laboratory Last Values WBC 11.1 K/mm3 (4.4-11.0) H 02/13/20 18:00 RBC 4.50 M/mm3 (4.2-5.4) 02/13/20 18:00 Hgb 14.2 g/dL (12.0-15.0) 02/13/20 18:00 Hct 40.7 % (37-47) 02/13/20 18:00 MCV 90.4 fL (81-99) 02/13/20 18:00 MCH 31.6 pg (27.0-32.0) 02/13/20 18:00 MCHC 34.9 g/dL (32-36) 02/13/20 18:00 RDW Std Deviation 39.3 fl (35.1-43.9) 02/13/20 18:00 RDW Coeff of Leanne 12.2 % (11.6-14.6) 02/13/20 18:00 Plt Count 185 K/mm3 (150-450) 02/13/20 18:00 MPV 9.0 fl (6.2-12.0) 02/13/20 18:00 Immature Gran % (Auto) 0.400 % (0.0-0.9) 02/13/20 18:00 Neut % (Auto) 83.3 % (47-70) H 02/13/20 18:00 Lymph % (Auto) 9.9 % (19-41) L 02/13/20 18:00 [place] % (Auto) 6.1 % (0-10) 02/13/20 18:00 Eos % (Auto) 0.0 % (0-5) 02/13/20 18:00 Baso % (Auto) 0.3 % (0-1) 02/13/20 18:00 Absolute Neuts (auto) 9.2 X10^3/uL (2.0-7.7) H 02/13/20 18:00 Absolute Lymphs (auto) 1.10 X10^3/uL (0.83-4.51) 02/13/20 18:00 Nucleated RBC % 0 % (0-5) 02/13/20 18:00 D-Dimer Quant (PE/DVT) 0.41 FEU/ug/m (0.27-0.49) 02/13/20 18:00 Sodium 134 mmol/L (136-145) L 02/13/20 18:00 Potassium 3.7 mmol/L (3.5-5.1) 02/13/20 18:00 Chloride 98 mmol/L (98-107) 02/13/20 18:00 Carbon Dioxide 20.0 mmol/L (21.0-32.0) L 02/13/20 18:00 Anion Gap 16 (5-15) H 02/13/20 18:00 BUN 22 mg/dL (7-18) H 02/13/20 18:00 Creatinine 1.04 mg/dL (0.55-1.02) H 02/13/20 18:00 Estim Creat Clear Calc 52.89 ml/min 02/13/20 18:00 Est GFR (MDRD) Af Amer 73 mL/min (>60) 02/13/20 18:00 Est GFR (MDRD) Non-Af 60 mL/min (>60) 02/13/20 18:00 BUN/Creatinine Ratio 21.2 RATIO (10-20) H 02/13/20 18:00 Glucose 169 mg/dL (74-106) H 02/13/20 18:00 Calcium 8.7 mg/dL (8.5-10.1) 02/13/20 18:00 Total Bilirubin 1.30 mg/dL (0.20-1.00) H 02/13/20 18:00 AST 28 U/L (15-37) 02/13/20 18:00 ALT 31 U/L (13-56) 02/13/20 18:00 Alkaline Phosphatase 93 U/L (45-117) 02/13/20 18:00 Troponin I < 0.015 ng/mL (<0.045) 02/13/20 18:00 Total Protein 8.3 g/dL (6.4-8.2) H 02/13/20 18:00 Albumin 4.4 g/dL (3.2-5.0) 02/13/20 18:00 Globulin 3.9 g/dL (2.2-4.2) 02/13/20 18:00 Albumin/Globulin Ratio 1.1 RATIO (0.9-2.4) 02/13/20 18:00 Amylase 31 U/L (25-115) 02/13/20 18:00 Lipase 47 U/L (73-393) L 02/13/20 18:00 Serum , Qual NEGATIVE Negative 02/13/20 18:00 Urine Color Yellow (Yellow) 02/13/20 19:25 Urine Clarity Clear (Clear) 02/13/20 19:25 Urine pH 6.0 (5.0 - 8.0) 02/13/20 19:25 Ur Specific [place] 1.025 (1.002-1.030) 02/13/20 19:25 Urine Protein 30 mg/dl (Negative) H 02/13/20 19:25 Urine Glucose (UA) Normal mg/dl (Normal) 02/13/20 19:25 Urine Ketones 150 mg/dl (Negative) H 02/13/20 19:25 Urine Occult Blood 10 /ul (Negative) H 02/13/20 19:25 Urine Nitrite Negative (Negative) 02/13/20 19:25 Urine Bilirubin Negative mg/dL (Negative) 02/13/20 19:25 Urine Urobilinogen Normal mg/dl (Normal) 02/13/20 19:25 Ur Leukocyte Esterase Negative /ul (Negative) 02/13/20 19:25 Urine RBC 0-5 SEEN /hpf (0-5) 02/13/20 19:25 Urine WBC 0 SEEN /hpf (0-5) 02/13/20 19:25 Ur Squamous Epith Cells 0-5 SEEN /hpf (5-10) 02/13/20 19:25 Urine Bacteria 1+ /hpf (None Seen) 02/13/20 19:25 Urine Mucus 1+ /hpf (<or=2+) 02/13/20 19:25 - EKG Initial EKG Interpretation: Sinus Tachycardia - EKG demonstrates a sinus tachycardia at a rate of 139. There is no ectopy or concerning features of ACS. - Medical Decision Making Patient received 2 L IV fluids Toradol Zofran ativan Phenergan and Bentyl. I believe this to be a viral illness. We will screen her for COVID. She is to self isolate. To write for Bentyl and Phenergan at home. We talked about an oral Pepcid and Imodium. Return if worsening or concerns ED Disposition - Plan for ED Patient: Disposition: Home or Assisted Living Diagnosis: Gastroenteritis Instructions: ED Viral Gastroenteritis Prescriptions: Dicyclomine HCl [Bentyl] 20 mg PO TIDAC PRN #20 cap PRN Reason: abdominal pain Prescription Printed proMETHazine tablet [Phenergan] 25 mg PO Q6H PRN PRN #20 tab PRN Reason: Nausea Prescription Printed Referrals: Aquiles Dimas III, MD [STAFF PHYSICIAN] - 3-5 Days if not improving Additional Instructions: As discussed you would probably benefit from a oral acid geochemist for the next few days. Imodium as needed for diarrhea.
[2020-02-13] MEDS: LORazepam 2 MG/ML Syringe 1 MG IV (18:31)
[2020-02-13] MEDS: Ondansetron 4 MG/2 ML Vial IV ×2 (18:31→18:54)
[2020-02-13] MEDS: Ketorolac 15 MG/ML Vial IV (18:31)
[2020-02-13] MEDS: 0.9% Normal Saline 1,000 ML 1000 ML IV (18:32)
--- NOTE | 2020-02-13 18:37 | RAD_ITS ---
STUDY: X-RAY CHEST REASON FOR EXAM: Female, 49 years old. Chest pain radiating into her back and epigastric area TECHNIQUE: Single AP portable view of the chest. COMPARISON: 12/17/2018. FINDINGS: There is hyperinflation of the lungs consistent with chronic obstructive lung disease (COPD). No infiltrates or effusions. There is no demonstrated pleural abnormality. Normal size heart. Normal mediastinum and yuri. Normal visualized pulmonary arteries. Normal visualized aortic arch and descending thoracic aorta. Normal visualized thoracic spine. Normal visualized ribs, clavicles, and shoulders. There is no demonstrated abnormality of the visualized soft tissue structures of the upper abdomen. RAD/Chest 1 View (Portable) IMPRESSION: There are findings consistent with COPD. There is no evidence of acute chest disease. Electronically Signed: Molina Jacques MD at 20:01 EDT , Service support ,
[2020-02-13 18:43] LABS: D-Dimer Quantitative (DVT/PE) 0.41 FEU/ug/m (0.27-0.49)
[2020-02-13 18:44] LABS: Internal QC Validated? YES +Cl - CLEAR BKGD; Pregnancy, Serum, hCG Quali. NEGATIVE Negative
[2020-02-13 18:48] LABS: Absolute Neutrophil Count 9.2 X10^3/uL (2.0-7.7); Basophil# 0.03 X10^3/uL; Basophil% 0.3 % (0-1); Hematocrit 40.7 % (37-47); Hemoglobin 14.2 g/dL (12.0-15.0); Lymphocyte % 9.9 % (19-41); Mean Corp Hgb Conc 34.9 g/dL (32-36); Mean Corpuscular Hgb 31.6 pg (27.0-32.0); Mean Corpuscular Volume 90.4 fL (81-99); Monocyte# 0.68 X10^3/uL; Monocyte% 6.1 % (0-10); NRBC Flagged by Analyzer 0 % (0-5); Neutrophil # 9.22 X10^3/uL (2.7-7.7); Neutrophil % 83.3 % (47-70); Platelet Count 185 K/mm3 (150-450); RBC Distribution Width CV 12.2 % (11.6-14.6); RBC Distribution Width SD 39.3 fl (35.1-43.9); White Blood Count 11.1 K/mm3 (4.4-11.0)
[2020-02-13 18:59] LABS: ALB/GLOB Ratio 1.1 RATIO (0.9-2.4); AST(SGOT) 28 U/L (15-37); Alanine Aminotransfer ALT/SGPT 31 U/L (13-56); Albumin, Serum 4.4 g/dL (3.2-5.0); Alkaline Phosphatase 93 U/L (45-117); Amylase 31 U/L (25-115); Anion Gap 16 (5-15); BUN 22 mg/dL (7-18); BUN/Creat Ratio 21.2 RATIO (10-20); Calcium,Total 8.7 mg/dL (8.5-10.1); Chloride 98 mmol/L (98-107); Creatinine, Serum 1.04 mg/dL (0.55-1.02); EST Glomerular Filtration Rate 60 mL/min (>60); Est Glom Filt Rate - Afr Amer 73 mL/min (>60); Estimated Creatinine Clearance 52.89 ml/min; Globulin 3.9 g/dL (2.2-4.2); Glucose 169 mg/dL (74-106); Lipase 47 U/L (73-393); Potassium 3.7 mmol/L (3.5-5.1); Protein, Total 8.3 g/dL (6.4-8.2); Sodium Level 134 mmol/L (136-145)
[2020-02-13 19:14] VITALS: BP 119/83; PULSE 117; RESP 14; O2SAT 100
[2020-02-13 19:31] LABS: White Blood Cells 0 SEEN /hpf (0-5)
[2020-02-13 19:32] LABS: Color, Urine Yellow (Yellow); Glucose, Dipstick Normal (Normal); Leukocyte Esterase-Dipstick Negative /ul (Negative); Nitrite-Dipstick Negative (Negative); Occult Blood-Urine 10 /ul (Negative); Protein-Dipstick 30 mg/dl (Negative); Specific Gravity, Urine 1.025 (1.002-1.030); Urine Bilirubin Dipstick Negative (Negative); Urine Clarity Clear (Clear); Urine Urobilinogen Normal (Normal)
[2020-02-13] MEDS: 0.9% Normal Saline 1,000 ML 150 ML IV (20:01)
--- NOTE | 2020-02-13 20:01 | CT_ITS ---
STUDY: CT ABDOMEN AND PELVIS WITHOUT CONTRAST REASON FOR EXAM: Female, 49 years old. CRAMPING ABD PAIN AROUND UMBILICUS, kidney stones. Pyelonephritis. Bile leak repair. RADIATION DOSAGE (If Supplied By Facility): CTDIvol = ( 14.48 ) mGy, DLP = ( 287.72 ) mGycm TECHNIQUE: Transaxial images were obtained from the dome of the diaphragm to the symphysis pubis without oral contrast, and without intravenous contrast. Sagittal and coronal images were reconstructed. Individualized dose optimization techniques were used for this CT. COMPARISON: 06/18/2019. FINDINGS: The visualized lung bases are unremarkable. The visualized portions of the heart are within normal limits. Normal liver. There are surgical clips in the gallbladder fossa consistent with a prior cholecystectomy. Normal spleen. Normal pancreas. Normal bilateral adrenal glands. No acute abnormality of the kidneys. Probable bilateral cortical scars. Tiny nonobstructing stone in lower pole of the left kidney. Evaluation of the GI tract is limited by absence of oral contrast. Cannot exclude stomach wall thickening. No dilated loops of bowel or evidence for obstruction. Cannot exclude segmental thickening of the lay of the small or large bowel. Cannot exclude enteritis or colitis. Moderate diffuse fecal retention. Diverticulosis without definite diverticulitis. Prominent thickening of the sigmoid, likely chronic. Appendix within normal limits. Normal abdominal aorta. Normal inferior vena cava. Normal retroperitoneum. Normal urinary bladder. There is absence of the uterus consistent with a prior hysterectomy. Normal abdominal wall. Normal osseous structures. CT/Abdomen/Pelvis W IV Cont ONLY IMPRESSION: Cannot exclude bowel wall thickening. Cannot exclude enteritis or especially colitis. Likely chronic sigmoid thickening. Electronically Signed: Molina Jacques MD at 21:03 EDT , Service support ,
[2020-02-13 20:03] VITALS: BP 131/86; PULSE 125; RESP 100; O2SAT 13
[2020-02-13] MEDS: proMETHazine 25 MG/ML Syringe 12.5 MG IV (20:08)
[2020-02-13] MEDS: Dicyclomine 20 MG/2 ML Vial IM (20:11)
[2020-02-13 20:17] LABS: Ketone-Dipstick 150 mg/dl (Negative)
[2020-02-13 20:18] LABS: Bacteria 1+ /hpf (None Seen); Mucous, Urine 1+ /hpf (<or=2+); Red Blood Cells-Urine 0-5 SEEN /hpf (0-5); Squamous Epithelial Cells - UA 0-5 SEEN /hpf (5-10)
[2020-02-13 21:05] VITALS: BP 130/78; PULSE 119; RESP 13; O2SAT 99
[2020-02-13 21:54] VITALS: BP 130/78; PULSE 119; RESP 16; O2SAT 99
[2020-02-13] MEDS: proMETHazine 25 MG Tablet PO (22:00)
== END 2020-02-13 22:05 | disposition home or self-care (01) ==
PROVIDERS: Emergency Provider Emergency Medicine
DX: K52.9 Noninfective gastroenteritis and colitis, unspecified (principal); J34.89 Other specified disorders of nose and nasal sinuses; G25.0 Essential tremor; Z79.899 Other long term (current) drug therapy
CPT/HCPCS: 71045; 74177; 80053; 81001; 82150; 83690; 84484; 84703; 85025; 85379; 87635; 93005; 96361; 96372; 96374; 96375; 99284; G2023; J7030; Q9967; J2405; U0003

== ENCOUNTER → 2020-04-10 | Outpatient (CLI) | payer BC, MEDICAID, SELFPAY | END | disposition home or self-care (01) | LOC: MTDU 17:29 | PROVIDERS: PCP Clinical Nurse Specialist | DX: R05 Cough (principal) | CPT/HCPCS: 87635; 94799; U0003 ==

== ENCOUNTER 2022-09-12 16:31 | Emergency (ER) | payer BC, MEDICAID, SELFPAY ==
[2022-09-12 16:31] VITALS: BP 107/96; PULSE 80; RESP 18; TEMP 35.9; O2SAT 100; BMI 24.7
--- NOTE | 2022-09-12 17:21 | EDS_ITS ---
HPI HPI - GI History of Present Illness Chief Complaint: Abd Pain Informant: patient Narrative Narrative: Patient presents with pain mostly in the left side of her abdomen. States left lower quadrant but when she points to the area its a little bit more left upper quadrant clearly for me. She states it started about a week ago. It waxes and wanes but never goes away. She did have 2 days of diarrhea and a little bit of blood in the stool but that has stopped. She is not really eating much because her appetite is down. She has some nausea but has never vomited. No dyspepsia. She states her urine is a little bit dark probably because she is not drinking. However, she has no dysuria frequency or odor. She has had prior hysterectomy and cholecystectomy. Cholecystectomy was 23 years ago. She used to drink heavily but has over 2 years of complete sobriety now. It sounds like she may have had pancreatitis in the past with this. She also has a history of some abdominal pain issues. She has had colonoscopies. One did show some diverticulosis but never diverticulitis. She has also had studies in the past for abdominal pain that have not showed any cause of her symptoms. But she generally has been asymptomatic for quite some time now. [facility] Medical History Anxiety Diabetes Home Medications propranolol 20 mg tablet 20 mg PO TID 06/17/19 [History Last Taken 06/16/19] dicyclomine 10 mg capsule 20 mg PO TIDAC PRN abdominal pain #20 caps 02/13/20 [Rx Last Taken Unknown] promethazine 25 mg tablet 25 mg PO Q6H PRN PRN Nausea #20 tabs 02/13/20 [Rx Last Taken Unknown] amoxicillin 875 mg-potassium clavulanate 125 mg tablet 1 tab PO BID #20 tabs 09/12/22 [Rx Last Taken Unknown] ondansetron 4 mg disintegrating tablet 4 mg PO Q8H PRN PRN Nausea #10 tabs 09/12/22 [Rx Last Taken Unknown] Allergy/AdvReac Type Severity Reaction Status Date / Time iron [From Venofer] Allergy Severe Hives Verified 09/12/22 16:33 latex Allergy Rash Verified 09/12/22 16:33 Family History Father Cancer skin cancer Heart disease Diabetes Mother Diabetes Grandfather Cancer Grandmother Cancer colon Aunt Cancer endometrial Brother Polycystic kidney Surgical History Bile leak delivery delivered gallbladder H/O bone graft H/O laparoscopy H/O: hysterectomy History of suburethral sling procedure tubal ligation Social History Smoking Status: Former smoker alcohol intake: never substance use type: does not use caffeine: Yes (patient drinks more than 4 caffinated beverages per day) what type of physical activity do you participate in: none seatbelt use: always additional social history: Kayden is her boyfriend and he works at [employer] ED Constitutional Constitutional ED: Denies chills or fever(s) ENT ENT ED: Denies rhinorrhea or sore throat Cardiovascular Cardiovascular: Denies chest pain or palpitations Respiratory/Chest Respiratory/Chest: Denies cough or dyspnea Gastrointestinal Gastrointestinal: Reports abdominal pain, diarrhea and nausea; Denies vomiting Genitourinary Genitourinary ED: Reports other Details: Darker. ; Denies dysuria, hematuria or urinary frequency Musculoskeletal Musculoskeletal: Reports other Details: Pain does radiate a little bit around toward her left flank but no real pain in her back. ; Denies myalgias Integumentary Denies rash Neurologic Neurologic: Denies paresthesias Psychiatric Psychiatric: Reports anxiety Endocrine Endocrinology: Denies polydipsia or polyuria Hematologic/Lymphatic Hematologic/Lymphatic: Denies lymphadenopathy Allergic/Immunologic Allergic/Immunologic ED: Denies urticaria EXAM Physical Exam Narrative Exam Narrative: Patient awake alert no acute distress. She is sitting comfortably in a chair when I first see her. Carries on a normal conversation HEENT shows no jaundice or pallor. His mucous membranes are little dry. Eyes show no jaundice Neck shows no JVD Lungs are clear bilaterally. No pain with deep breath. No rales. Heart is regular without murmur gallop or rub. Distal pulses are normal. Abdomen is soft and nondistended. Bowel sounds do sound normal. She does have some tenderness toward the left upper quadrant. Other areas are not tender. Pressing firmly in the other areas do not elicit pain in the left upper quadrant. I feel no mass. There is certainly no rebound or guarding. No CVA tenderness. Back shows no back or CVA tenderness. No rashes noted. no CVA or suprapubic tenderness Extremities show no edema. Pulses are normal. Patient alert oriented and appropriate. Const Vital Signs: 09/12/22 16:31 Temperature 96.7 F L Temperature Source Temporal Pulse Rate 80 Respiratory Rate 18 Blood Pressure 107/96 H Blood Pressure Mean 99 Pulse Ox 100 Oxygen Delivery Method Room Air MDM MDM MDM Narrative Medical decision making narrative: I independently looked at interpreted the CT of the abdomen and does show some stranding and thickening along the left colon consistent with diverticulitis. I did not see any perforation. Final reading shows diverticulitis with no abscess or perforation per radiology. White count shows no elevation. Hemoglobin is minimally low. Platelets are just a little bit low. Electrolytes liver function test show no acute process. Lipase is normal. Urine was clean. Patient is feeling well. I will write for some meds for nausea. I will write for Augmentin. We also discussed the vital importance of a clear liquid diet and we discussed reasons to return. Lab Data Attestation: I reviewed the patient's lab results. Labs: Laboratory Results - last 24 hr 09/12/22 09/12/22 09/12/22 17:47 18:45 18:45 WBC 8.5 RBC 3.72 L Hgb 11.4 L Hct 34.5 L MCV 92.7 MCH 30.6 MCHC 33.0 RDW Std Deviation 42.5 RDW Coeff of Leanne 12.5 Plt Count 145 L MPV 9.1 Immature Gran % (Auto) 0.600 Neut % (Auto) 69.8 Lymph % (Auto) 20.0 Mellette % (Auto) 7.1 Eos % (Auto) 1.9 Baso % (Auto) 0.6 Absolute Neuts (auto) 5.9 Absolute Lymphs (auto) 1.69 Nucleated RBC % 0 Sodium 138 Potassium 3.6 Chloride 103 Carbon Dioxide 26.0 Anion Gap 9 BUN 9 Creatinine 0.96 Estim Creat Clear Calc 55.45 Est GFR (MDRD) Af Amer 79 Est GFR (MDRD) Non-Af 66 BUN/Creatinine Ratio 9.4 L Glucose 100 Calcium 8.7 Total Bilirubin 0.40 AST 9 L ALT 14 Alkaline Phosphatase 60 Total Protein 7.6 Albumin 3.7 Globulin 3.9 Albumin/Globulin Ratio 0.9 Lipase 89 Urine Color Yellow Urine Clarity Clear Urine pH 7.0 Ur Specific [place] 1.005 Urine Protein Negative Urine Glucose (UA) Normal Urine Ketones Negative Urine Occult Blood Negative Urine Nitrite Negative Urine Bilirubin Negative Urine Urobilinogen Normal Ur Leukocyte Esterase Negative Urine RBC 0 SEEN Urine WBC 0 SEEN Ur Squamous Epith Cells 0-5 SEEN Urine Bacteria RARE Urine Mucus 0 SEEN Radiography Diagnostic Testing: Clinical Impression(s) from Imaging Studies Abdomen/Pelvis CT 09/12/22 17:21 IMPRESSION: Diverticular disease of the colon and mild acute diverticulitis of the mid to distal descending colon but no evidence for peridiverticular abscess. Electronically Signed: Josesito Mensah MD at 19:56 EST , Discharge Plan Triage Chief Complaint: Abd Pain ED Provider: Danie Coleman Dx/Rx/DC Orders Clinical Impression: Diverticulitis, Anemia, mild, Nausea Instructions: ED Diverticulitis Prescriptions: New ondansetron [ondansetron] 4 mg tablet,disintegrating 4 mg PO Q8H PRN PRN (Reason: Nausea) Qty: 10 0RF amoxicillin-pot clavulanate 875-125 mg tablet 1 tab PO BID Qty: 20 0RF No Action propranolol 20 MG tablet 20 mg PO TID promethazine 25 MG tablet 25 mg PO Q6H PRN PRN (Reason: Nausea) Qty: 20 0RF dicyclomine 10 MG capsule 20 mg PO TIDAC PRN (Reason: abdominal pain) Qty: 20 0RF Primary Care Provider: Julia Diaz Referrals: Julia Diaz MD [Primary Care Provider] - 3-5 Days Disposition Disposition: Home, Self Care
--- NOTE | 2022-09-12 17:21 | CT_ITS ---
STUDY: CT ABDOMEN AND PELVIS WITH CONTRAST REASON FOR EXAM: Female, 52 years old. pain RADIATION DOSAGE (If Supplied By Facility): CTDIvol = ( 14.98 ) mGy, DLP = ( 526.59 ) mGycm TECHNIQUE: Transaxial images were obtained from the dome of the diaphragm to the symphysis pubis without oral contrast. IV 100mL [id number]-[id number] was administered. Sagittal and coronal images were reconstructed. Individualized dose optimization techniques were used for this CT. COMPARISON: None. FINDINGS: The visualized lung bases are unremarkable. The visualized portions of the heart are within normal limits. Normal liver. Gallbladder has been removed surgically.. Normal spleen. Normal pancreas. Normal bilateral adrenal glands. Mild multifocal bilateral cortical renal scarring. No evidence for renal obstruction or mass . Normal visualized stomach. Normal small intestine. Mild diffuse diverticular changes of the colon. There is focal thickening of the lay of the mid to distal descending colon and stranding in the fat with a trace of fluid in the left paracolic gutter consistent with acute diverticulitis. There is no peridiverticular abscess. No evidence for acute appendicitis. Minor atherosclerotic changes of the aorta without evidence for aneurysm. Normal inferior vena cava. Normal retroperitoneum. Normal urinary bladder. Uterus not visualized consistent with hysterectomy Normal abdominal wall. Lumbar spine demonstrates mild spondylosis CT/Abdomen/Pelvis W IV Cont ONLY IMPRESSION: Diverticular disease of the colon and mild acute diverticulitis of the mid to distal descending colon but no evidence for peridiverticular abscess. Electronically Signed: Josesito Mensah MD at 19:56 EST ,
--- NOTE | 2022-09-12 17:21 | EKG12_ITS ---
Test Reason : [facility] Blood Pressure : / mmHG Vent. Rate : 074 BPM Atrial Rate : 074 BPM P-R Int : 130 ms QRS Dur : 090 ms QT Int : 372 ms P-R-T Axes : 066 091 043 degrees QTc Int : 412 ms Normal sinus rhythm Rightward axis Nonspecific ST abnormality Abnormal ECG Confirmed by JIM VOSS, GERTRUDIS ([id number]), videotape editor LETTY OCASIO ([id number]) on 09/15/2022 9:22:30 AM Referred By: Confirmed By:GERTRUDIS FERNANDEZ MD
[2022-09-12 17:50] LABS: Mucous, Urine 0 SEEN /hpf (<or=2+); Red Blood Cells-Urine 0 SEEN /hpf (0-5); White Blood Cells 0 SEEN /hpf (0-5)
[2022-09-12 17:54] LABS: Color, Urine Yellow (Yellow); Glucose, Dipstick Normal (Normal); Ketone-Dipstick Negative (Negative); Leukocyte Esterase-Dipstick Negative /ul (Negative); Nitrite-Dipstick Negative (Negative); Occult Blood-Urine Negative /ul (Negative); Protein-Dipstick Negative (Negative); Specific Gravity, Urine 1.005 (1.002-1.030); Urine Bilirubin Dipstick Negative (Negative); Urine Clarity Clear (Clear); Urine Urobilinogen Normal (Normal)
[2022-09-12 18:00] LABS: Bacteria RARE /hpf (None Seen); Squamous Epithelial Cells - UA 0-5 SEEN /hpf (5-10)
[2022-09-12] MEDS: 0.9% Normal Saline 1,000 ML 1000 ML IV (18:51)
[2022-09-12] MEDS: Ondansetron 4 MG/2 ML Vial IV (18:51)
[2022-09-12 18:55] LABS: Absolute Lymphocyte Count 1.69 X10^3/uL (0.83-4.51); Absolute Neutrophil Count 5.9 X10^3/uL (2.0-7.7); Basophil# 0.05 X10^3/uL; Basophil% 0.6 % (0-1); Eosinophil# 0.16 X10^3/uL; Eosinophils% 1.9 % (0-5); Hematocrit 34.5 % (37-47); Hemoglobin 11.4 g/dL (12.0-15.0); Lymphocyte # 1.69 X10^3/ul (0.83-4.51); Mean Corpuscular Hgb 30.6 pg (27.0-32.0); Mean Corpuscular Volume 92.7 fL (81-99); Mean Platelet Vol. 9.1 fl (6.2-12.0); Monocyte% 7.1 % (0-10); NRBC Flagged by Analyzer 0 % (0-5); Neutrophil # 5.91 X10^3/uL (2.7-7.7); Neutrophil % 69.8 % (47-70); Platelet Count 145 K/mm3 (150-450); RBC Distribution Width CV 12.5 % (11.6-14.6); RBC Distribution Width SD 42.5 fl (35.1-43.9); Red Blood Count 3.72 M/mm3 (4.2-5.4); White Blood Count 8.5 K/mm3 (4.4-11.0)
[2022-09-12 19:08] LABS: ALB/GLOB Ratio 0.9 RATIO (0.9-2.4); AST(SGOT) 9 U/L (15-37); Alanine Aminotransfer ALT/SGPT 14 U/L (13-56); Albumin, Serum 3.7 g/dL (3.2-5.0); Alkaline Phosphatase 60 U/L (45-117); Anion Gap 9 (5-15); BUN 9 mg/dL (7-18); BUN/Creat Ratio 9.4 RATIO (10-20); Calcium,Total 8.7 mg/dL (8.5-10.1); Chloride 103 mmol/L (98-107); Creatinine, Serum 0.96 mg/dL (0.55-1.02); EST Glomerular Filtration Rate 66 mL/min (>60); Est Glom Filt Rate - Afr Amer 79 mL/min (>60); Estimated Creatinine Clearance 55.45 ml/min; Globulin 3.9 g/dL (2.2-4.2); Glucose 100 mg/dL (74-106); Lipase 89 U/L (73-393); Potassium 3.6 mmol/L (3.5-5.1); Protein, Total 7.6 g/dL (6.4-8.2); Sodium Level 138 mmol/L (136-145)
[2022-09-12] MEDS: Amox/Clavulanate 875 MG Tablet PO (20:17)
== END 2022-09-12 20:27 | disposition home or self-care (01) ==
PROVIDERS: Emergency Provider Emergency Medicine; PCP Internal Medicine; Visit Provider Emergency Medicine
DX: K57.32 Diverticulitis of large intestine without perforation or abscess without bleeding (principal); E11.9 Type 2 diabetes mellitus without complications; Z87.891 Personal history of nicotine dependence; R11.0 Nausea; D64.9 Anemia, unspecified
CPT/HCPCS: 74177; 80053; 81001; 83690; 85025; 93005; 96361; 96374; 99283; J7030; Q9967; A4216; J2405

== ENCOUNTER 2023-07-18 08:19 | Emergency (ER) | payer BC, SELFPAY ==
[2023-07-18 08:20] VITALS: BP 119/88; PULSE 89; RESP 16; TEMP 36.3; O2SAT 100; BMI 23.6
--- NOTE | 2023-07-18 08:35 | CT_ITS ---
STUDY: CT ABDOMEN AND PELVIS WITHOUT CONTRAST REASON FOR EXAM: Female, 52 years old. right flank pain RADIATION DOSAGE (If Supplied By Facility): CTDIvol = ( 6.05 ) mGy, DLP = ( 300.71 ) mGycm TECHNIQUE: Transaxial images were obtained from the dome of the diaphragm to the symphysis pubis without oral contrast, and without intravenous contrast. Sagittal and coronal images were reconstructed. Individualized dose optimization techniques were used for this CT. COMPARISON: 09/12/2022 FINDINGS: The visualized lung bases are unremarkable. The visualized portions of the heart are within normal limits. There is decreased attenuation of the liver consistent with steatosis. There are surgical clips in the gallbladder fossa consistent with a prior cholecystectomy. Normal spleen. Normal pancreas. Normal bilateral adrenal glands. Multiple bilateral small nonobstructing renal stones. 6 mm obstructing stone of the distal right ureter just proximal to the ureterovesical junction with severe ureteral dilatation and hydronephrosis. Normal left kidney. Normal visualized stomach. Normal small intestine. There are multiple colonic diverticula consistent with diverticulosis. The appendix is visualized and appears normal. Normal abdominal aorta. Normal inferior vena cava. Normal retroperitoneum. Normal urinary bladder. Normal abdominal wall. Mild levoscoliosis lumbar spine. CT/Abdomen/Pelvis without Cont IMPRESSION: 1. 6 mm obstructing stone at the distal right ureter with the severe ureteral dilatation and hydronephrosis. 2. Status post cholecystectomy with fatty infiltration liver. 3. Sigmoid diverticulosis without diverticulitis. Electronically Signed: Demian Raphael MD at 10:13 EST ,
--- NOTE | 2023-07-18 08:36 | EDS_ITS ---
HPI History of Present Illness Chief Complaint: Flank Pain Detail of Chief Complaint: Right flank pain Informant: patient and spouse/S.O. Narrative Narrative: Patient presents with right-sided flank pain that started 2 days ago. She complains of severe pain at close to her back. She complains of dysuria. She denies hematuria. She had no fever although she has had chills and sweats. Currently rates her pain a 7 or 8 out of 10. She does have prior history of urinary tract infections as well as history of kidney stones. Patient also with history of prior diverticulitis. Patient has had nausea and is vomited x1. [facility] Medical History (Updated 07/18/23 @ 10:[address] Sharyn Laws, ) Anxiety Diabetes Diarrhea LUQ pain Home Medications propranolol 20 mg tablet 20 mg PO TID 06/17/19 [History Last Taken 06/16/19] dicyclomine 10 mg capsule 20 mg (2 x 10 mg) PO TIDAC PRN abdominal pain #20 caps 02/13/20 [Rx Last Taken Unknown] promethazine 25 mg tablet 25 mg PO Q6H PRN PRN Nausea #20 tabs 02/13/20 [Rx Last Taken Unknown] amoxicillin 875 mg-potassium clavulanate 125 mg tablet 1 tab PO BID #20 tabs 09/12/22 [Rx Last Taken Unknown] ondansetron 4 mg disintegrating tablet 4 mg PO Q8H PRN PRN Nausea #10 tabs 09/12/22 [Rx Last Taken Unknown] clomipramine 75 mg capsule 75 mg PO BID 12/19/22 [History Last Taken Unknown] clonazepam 0.5 mg tablet 0.5 mg PO DAILY 12/19/22 [History Last Taken Unknown] estradiol 0.5 mg tablet (Estrace) 0.5 mg PO DAILY 12/19/22 [History Last Taken Unknown] gabapentin 600 mg tablet 600 mg PO TID 12/19/22 [History Last Taken Unknown] metronidazole 500 mg tablet 500 mg PO TID 12/19/22 [History Last Taken Unknown] rizatriptan 10 mg tablet (Maxalt) See Rx Instructions PO .COMPLEX 12/19/22 [History Last Taken Unknown] topiramate 25 mg tablet (Topamax) 25 mg PO BID 12/19/22 [History Last Taken Unknown] zolpidem 5 mg tablet (Ambien) 5 mg PO QHS PRN 12/19/22 [History Last Taken Unknown] Allergy/AdvReac Type Severity Reaction Status Date / Time iron [From Venofer] Allergy Severe Hives Verified 07/18/23 08:24 latex Allergy Rash Verified 07/18/23 08:24 Family History Father Cancer skin cancer Heart disease Diabetes Mother Diabetes Grandfather Cancer Grandmother Cancer colon Aunt Cancer endometrial Brother Polycystic kidney Surgical History Bile leak delivery delivered gallbladder H/O bone graft H/O laparoscopy H/O: hysterectomy History of suburethral sling procedure tubal ligation Social History Smoking Status: Former smoker alcohol intake: never substance use type: does not use caffeine: Yes (patient drinks more than 4 caffinated beverages per day) what type of physical activity do you participate in: none seatbelt use: always additional social history: Kayden is her boyfriend and he works at [employer] ROS ED Review of Systems ROS Unobtainable: other Constitutional Constitutional ED: Reports lethargy; Denies chills, fever(s), sweats or weight loss Eyes Eyes: Denies blurry vision, change in vision or diplopia ENT ENT ED: Denies rhinorrhea or sore throat Cardiovascular Cardiovascular: Denies chest pain, orthopnea or racing heartbeat Respiratory/Chest Respiratory/Chest: Denies cough, dyspnea, dyspnea on exertion, orthopnea or sputum Gastrointestinal Gastrointestinal: Reports abdominal pain, nausea and vomiting; Denies diarrhea Genitourinary Genitourinary ED: Reports dysuria; Denies hematuria or urinary frequency Musculoskeletal Musculoskeletal: Denies arthralgias, back pain, myalgias or neck pain Integumentary Denies abscess, Abrasions or rash Neurologic Neurologic: Denies headache(s) or weakness Psychiatric Psychiatric: Denies anxiety, depression or suicidal thoughts Endocrine Endocrinology: Denies polydipsia, polyphagia or polyuria Hematologic/Lymphatic Hematologic/Lymphatic: Denies easy bleeding, easy bruising or lymphadenopathy Allergic/Immunologic Allergic/Immunologic ED: Denies mouth swelling, tongue swelling or urticaria EXAM Physical Exam Const Vital Signs: 07/18/23 08:20 Temperature 97.3 F L Temperature Source Temporal Pulse Rate 89 Respiratory Rate 16 Blood Pressure 119/88 H Blood Pressure Mean 98 Pulse Ox 100 Oxygen Delivery Method Room Air Positive well nourished and well developed General Appearance ED: well developed and NAD HEENT Reports TM's clear and moist mucous membranes normocephalic and atraumatic; Negative for trauma or tenderness Tympanic Membrane ED: Yes TM's clear Eyes PERRL and EOMs intact bilaterally General Eye ED: Negative for pale conjunctiva or scleral icterus Neck no lymphadenopathy, supple and no JVD General: Negative for tenderness Chest Wall inspection of chest normal and palpation of chest normal Chest: Negative for tenderness Resp normal respiratory effort and clear to auscultation bilaterally Effort and Inspection: Negative for respiratory distress or pain with movement Auscultation: Negative for rhonchi, wheezes or diminished lung sounds Cardio regular rate, regular rhythm, S1 normal heart sound, S2 normal heart sound and no murmurs Peripheral Pulses: pulses 2+ throughout GI normal to inspection, nondistended, normoactive bowel sounds, soft to palpation, non-distended and no masses GI Narrative: Tenderness palpation of right lower quadrant with some mild guarding. She has some mild CVA tenderness on the right. There is no rebound, rigidity, or perineal signs. No mass palpated. Back/Spine no CVA tenderness and no thoracic nor lumbar tenderness Extremity normal to inspection General Extremety ED: Negative for edema General Extremity: Negative for edema Neuro oriented x3, CN's II-XII intact bilaterally, no sensory deficits noted and gait normal Sensorium / Orientation: awake, alert, oriented to person, oriented to place and oriented to time Motor Exam: strength 5/5 throughout and strength abnormal Psych mental status grossly normal Skin no rashes or lesions noted and no wounds MDM MDM MDM Narrative Medical decision making narrative: Patient with right flank pain with history of kidney stone and history of UTIs. Patient also with history of diabetes. Concern was for UTI or kidney stone or other intra-abdominal process. IV line established. Patient was medicated with Dilaudid and Zofran as well as Toradol. CBC with differential obtained showed a white count of 8.8 with hemoglobin 10.6 and platelet count of 142. Chemistries unremarkable. Urinalysis positive for 500 leukocyte esterase and 50-100 WBCs as well as +2 bacteria. Urine culture was sent. Patient started on Rocephin [address] scan of the abdomen pelvis with out contrast showed a 6 mm right distal ureter stone with severe hydro ureter. Patient had to be remedicated with Dilaudid as she continues to have pain. I do not have urology available this weekend. Discussed transfer of patient to manage her pain and evaluate by urology given the size of the stone this may or may not pass and also she has a UTI. Clinically I do not feel she is septic. Case discussed with [facility] and she was excepted by Dr. Díaz who is on for urology. Patient will be transferred [facility]. Lab Data Attestation: I reviewed the patient's lab results. Labs: Laboratory Results - last 24 hr 07/18/23 09:04 WBC 8.8 RBC 3.36 L Hgb 10.6 L Hct 33.8 L MCV 100.6 H MCH 31.5 MCHC 31.4 L RDW Std Deviation 50.6 H RDW Coeff of Leanne 13.8 Plt Count 142 L MPV 9.6 Immature Gran % (Auto) 0.700 Neut % (Auto) 73.9 H Lymph % (Auto) 15.6 L [place] % (Auto) 7.7 Eos % (Auto) 1.5 Baso % (Auto) 0.6 Absolute Neuts (auto) 6.5 Absolute Lymphs (auto) 1.37 Nucleated RBC % 0 Sodium 141 Potassium 3.7 Chloride 113 H Carbon Dioxide 23.0 Anion Gap 5 BUN 15 Creatinine 1.16 H Estim Creat Clear Calc 48.00 Est GFR (MDRD) Af Amer 63 Est GFR (MDRD) Non-Af 52 L BUN/Creatinine Ratio 12.9 Glucose 107 H Calcium 8.1 L Urine Color Yellow Urine Clarity Cloudy Urine pH 6.5 Ur Specific [place] 1.020 Urine Protein 30 H Urine Glucose (UA) Normal Urine Ketones 5 H Urine Occult Blood 10 H Urine Nitrite Negative Urine Bilirubin 1 H Urine Urobilinogen Normal Ur Leukocyte Esterase 500 H Urine RBC 0 SEEN Urine WBC 50-100 SEEN Ur Squamous Epith Cells 0 SEEN Calcium Oxalate Crystal 1+ Urine Bacteria 2+ Urine Mucus 0 SEEN Discharge Plan Triage Chief Complaint: Flank Pain ED Provider: Inga Lwasus Dx/Rx/DC Orders Clinical Impression: UTI (urinary tract infection), Intractable pain, Urolithiasis Prescriptions: No Action clomipramine 75 mg capsule 75 mg PO BID clonazepam 0.5 mg tablet 0.5 mg PO DAILY gabapentin 600 mg tablet 600 mg PO TID rizatriptan [Maxalt] 10 mg tablet See Rx Instructions PO .COMPLEX Rx Instructions: take 1 tab at onset of headache; if no relief may repeat 1 tab after at least 2 hrs; max = 3 tabs/24 hr PO topiramate [Topamax] 25 mg tablet 25 mg PO BID metronidazole 500 mg tablet 500 mg PO TID zolpidem [Ambien] 5 mg tablet 5 mg PO QHS PRN estradiol [Estrace] 0.5 mg tablet 0.5 mg PO DAILY Rx Instructions: off 5 days; repeat cycle propranolol 20 MG tablet 20 mg PO TID promethazine 25 MG tablet 25 mg PO Q6H PRN PRN (Reason: Nausea) Qty: 20 0RF dicyclomine 10 MG capsule 20 mg PO TIDAC PRN (Reason: abdominal pain) Qty: 20 0RF ondansetron [ondansetron] 4 mg tablet,disintegrating 4 mg PO Q8H PRN PRN (Reason: Nausea) Qty: 10 0RF amoxicillin-pot clavulanate 875-125 mg tablet 1 tab PO BID Qty: 20 0RF Primary Care Provider: Julia Diaz Referrals: Julia Diaz MD [Primary Care Provider] - Disposition Disposition: DC/Tx to Another Type of HCF
[2023-07-18] MEDS: Ondansetron 4 MG/2 ML Vial IV (08:59)
[2023-07-18] MEDS: Ketorolac 15 MG/ML Vial IV (08:59)
[2023-07-18] MEDS: HYDROmorphone 1 MG/ML Syringe IV ×3 (08:59→14:00)
[2023-07-18 09:17] LABS: Mucous, Urine 0 SEEN /hpf (<or=2+); Red Blood Cells-Urine 0 SEEN /hpf (0-5); Squamous Epithelial Cells - UA 0 SEEN /hpf (5-10)
[2023-07-18 09:18] LABS: Absolute Lymphocyte Count 1.37 X10^3/uL (0.83-4.51); Absolute Neutrophil Count 6.5 X10^3/uL (2.0-7.7); Basophil# 0.05 X10^3/uL; Basophil% 0.6 % (0-1); Eosinophil# 0.13 X10^3/uL; Eosinophils% 1.5 % (0-5); Hematocrit 33.8 % (37-47); Hemoglobin 10.6 g/dL (12.0-15.0); Lymphocyte # 1.37 X10^3/ul (0.83-4.51); Lymphocyte % 15.6 % (19-41); Mean Corp Hgb Conc 31.4 g/dL (32-36); Mean Corpuscular Hgb 31.5 pg (27.0-32.0); Mean Corpuscular Volume 100.6 fL (81-99); Mean Platelet Vol. 9.6 fl (6.2-12.0); Monocyte# 0.68 X10^3/uL; Monocyte% 7.7 % (0-10); NRBC Flagged by Analyzer 0 % (0-5); Neutrophil # 6.52 X10^3/uL (2.7-7.7); Neutrophil % 73.9 % (47-70); Platelet Count 142 K/mm3 (150-450); RBC Distribution Width CV 13.8 % (11.6-14.6); RBC Distribution Width SD 50.6 fl (35.1-43.9); Red Blood Count 3.36 M/mm3 (4.2-5.4); White Blood Count 8.8 K/mm3 (4.4-11.0)
[2023-07-18 09:25] LABS: Color, Urine Yellow (Yellow); Glucose, Dipstick Normal (Normal); Ketone-Dipstick 5 mg/dl (Negative); Leukocyte Esterase-Dipstick 500 /ul (Negative); Nitrite-Dipstick Negative (Negative); Occult Blood-Urine 10 /ul (Negative); Protein-Dipstick 30 mg/dl (Negative); Urine Clarity Cloudy (Clear); Urine Urobilinogen Normal (Normal); Urine pH 6.5 (5.0 - 8.0)
[2023-07-18 09:36] LABS: Urine Bilirubin Dipstick 1 mg/dL (Negative)
[2023-07-18 09:38] LABS: Anion Gap 5 (5-15); BUN 15 mg/dL (7-18); BUN/Creat Ratio 12.9 RATIO (10-20); Calcium,Total 8.1 mg/dL (8.5-10.1); Chloride 113 mmol/L (98-107); Creatinine, Serum 1.16 mg/dL (0.55-1.02); EST Glomerular Filtration Rate 52 mL/min (>60); Est Glom Filt Rate - Afr Amer 63 mL/min (>60); Glucose 107 mg/dL (74-106); Potassium 3.7 mmol/L (3.5-5.1); Sodium Level 141 mmol/L (136-145)
[2023-07-18] MEDS: 0.9% Normal Saline (1000mL) 1,000 ML 150 ML IV (09:41)
[2023-07-18 09:43] LABS: Bacteria 2+ /hpf (None Seen); Calcium Oxalate Crystals Ur 1+ /hpf (<or=2+); White Blood Cells 50-100 SEEN /hpf (0-5)
[2023-07-18 10:31] VITALS: BP 148/76; PULSE 64; RESP 14; O2SAT 99
[2023-07-18] MEDS: Ceftriaxone 1 GM/50 ML BAG IV (10:31)
[2023-07-18 12:18] VITALS: BP 133/78; PULSE 116; RESP 30; TEMP 37; O2SAT 95
[2023-07-18 14:15] VITALS: PULSE 107; RESP 16; O2SAT 86
[2023-07-18 14:16] VITALS: O2SAT 94
[2023-07-18 16:00] VITALS: BP 128/78; PULSE 104; RESP 14; O2SAT 97
== END 2023-07-18 16:37 | disposition other institution (70) ==
PROVIDERS: Emergency Provider Emergency Medicine; PCP Internal Medicine; Referring Provider Emergency Medicine; Visit Provider Emergency Medicine
DX: N13.6 Pyonephrosis (principal); E11.9 Type 2 diabetes mellitus without complications; Z87.891 Personal history of nicotine dependence; R30.0 Dysuria; Z87.442 Personal history of urinary calculi; Z87.440 Personal history of urinary (tract) infections
CPT/HCPCS: 74176; 80048; 81001; 85025; 87040; 87077; 87086; 87088; 87186; 96361; 96365; 96366; 96375; 96376; 99284; A4216; J2405

== ENCOUNTER 2024-05-07 03:39 | Emergency (ER) | payer BC, SELFPAY ==
[2024-05-07 03:39] VITALS: BP 140/96; PULSE 120; RESP 20; TEMP 36.1; O2SAT 99; BMI 21.7
--- NOTE | 2024-05-07 03:42 | EDS_ITS ---
HPI History of Present Illness Chief Complaint: Abd Pain PFSH PFSH Medical History Diarrhea LUQ pain Diabetes Anxiety Home Medications ?Medication ?Instructions ?Recorded ?Last Taken ?Type mirtazapine 7.5 mg tablet 7.5 mg PO QHS #30 tabs 04/27/24 Unknown Rx propranolol 10 mg tablet 10 mg PO TID PRN anxiety #90 tabs 04/27/24 Unknown Rx venlafaxine 75 mg tablet 75 mg PO DAILY #30 tabs 04/27/24 Unknown Rx dicyclomine 20 mg tablet 20 mg PO TID PRN abdominal pain 3 05/07/24 Unknown Rx days #9 tabs ondansetron 4 mg disintegrating 4 mg PO Q8H PRN PRN Nausea #10 tabs 05/07/24 Unknown Rx tablet Allergy/AdvReac Type Severity Reaction Status Date / Time iron (From Venofer) Allergy Severe Hives Verified 04/27/24 14:41 latex Allergy Rash Verified 04/27/24 14:41 peanut Allergy Abd Verified 04/27/24 14:41 cramps/diarrhea Family History Father Cancer skin cancer Heart disease Diabetes Mother Diabetes Grandfather Cancer Grandmother Cancer colon Aunt Cancer endometrial Brother Polycystic kidney Surgical History History of suburethral sling procedure H/O: hysterectomy H/O laparoscopy H/O bone graft Bile leak gallbladder tubal ligation delivery delivered Social History Smoking Status: Former smoker alcohol intake: former details: Sober x 3.5 years substance use type: does not use caffeine: Yes (patient drinks more than 4 caffinated beverages per day) what type of physical activity do you participate in: none seatbelt use: always additional social history: Kayden is her boyfriend and he works at [employer] EXAM Physical Exam Const Vital Signs: 05/07/24 03:39 05/07/24 05:18 Temperature 97 F L 97.6 F L Temperature Source Temporal Oral Pulse Rate 120 H 82 Respiratory Rate 20 H 15 Blood Pressure 140/96 H 137/69 H Blood Pressure Mean 110 91 Pulse Ox 99 97 Oxygen Delivery Method Room Air [facility] Narrative Medical decision making narrative: HISTORY OF PRESENT ILLNESS: 53-year-old female presents abdominal pain. Notes 1 hour abdominal pain. Patient further states she has had several days of abdominal pain but worsened this evening. She notes it feels like diverticulitis. She denies pain in her left lower quadrant she points to her mid abdomen. She notes nausea but no vomiting. Last bowel was yesterday with no melena hematochezia. Denies vaginal bleeding discharge. Denies frequency, urgency, hematuria or dysuria. Denies chest pain or shortness of breath REVIEW OF SYSTEMS: Pertinent positives: Abdominal pain, nausea Pertinent negatives: Vomiting, urinary complaint PHYSICAL EXAM: Nursing triage notes reviewed, Vital signs reviewed Constitutional: please see [facility] HENT: MMM Eyes: Pupils equal round and reactive to light, Extraocular muscles intact Neck: No stridor, no JVD, full neck ROM Lungs: Clear to auscultation, No wheezing or rales. No increased work of breathing, no conversational dyspnea, no accessory muscle use, no nasal flaring. No respiratory distress noted Heart: Regular rate and rhythm, No murmurs, No rubs and No gallops, 2+ distal pulses (radial, femoral, posterior tibial) in all extremities Abdomen: Soft, diffuse tenderness noted but no rigidity, rebound or guarding, no obvious peritoneal signs, no palpable pulsatile abdominal masses, no auscultated abdominal bruit : No CVAT Extremities: No edema Neuro: No focal neurological deficits, cranial nerves II through XII intact, 5/5 strength in all extremities. Intact sensation to light touch in all extremities, 2+ reflexes bilateral patella tendons. Normal gait. No ataxia. Skin: No rash or lesions noted MEDICAL DECISION MAKING: Chief Complaint: Abdominal pain External records reviewed: Reviewed prior CT scan from 2022 which showed a 6 mm nephrolithiasis in the right ear Factors affecting care: Nephrolithiasis, status post laparoscopy, hysterectomy, diverticulitis Social determinants of health: none History obtained from others: Consults: none [facility] Narrative: The patient was initially tachycardic at a rate of 120, afebrile, nontoxic- appearing. The patient's abdominal exam was diffusely tender but was not peritonitic. I considered the following differential diagnosis: AAA, small bowel obstruction, abdominal perforation, appendicitis, pancreatitis, hepatobiliary pathology (acute cholecystitis), mesenteric ischemia, pathology (ie nephrolithiasis, pyelonephritis). I obtained a broad lab and imaging workup to further elucidate etiology of patient complaint. I treated the patient with 1 L normal saline, 4 mg of Zofran and 15 mg IV Toradol for initial resuscitation pain and nausea control. ALL IMAGES (IF OBTAINED) HAVE BEEN PERSONALLY REVIEWED AND INTERPRETED BY MYSELF. CBC without leukocytosis, severe anemia, no thrombocytopenia. BMP shows no evidence of significant electrolyte disturbances, no evidence of endorgan hypoperfusion or metabolic acidosis, there is mild renal insufficiency LFTs show no evidence of hepatobiliary pathology. Lipase is wnl indicating no pancreatic inflammation. CT scan of the abdomen pelvis shows no evidence of obvious intra-abdominal pathology. No evidence of surgical etiology no AAA. On reassessment the patient's heart rate improved to 82. Repeat abdominal exam benign. Patient is appropriate discharge home. The etiology of patient complaint remains uncertain however it is unlikely be life-threatening given negative imaging and reassuring labs The patient and/or family, caregivers express understanding. The patient and/or family, caregivers agrees with the plan. Shared decision making: I will have a discussion with the patient and or visitors regarding risk/benefits of further testing or admission. They will be made aware of of the risk/benefits inherent in this decision they will be given the opportunity to voice understanding. Total critical care time today provided was at least 0 minutes. This excludes separately billable procedures. Critical care time (if documented) is secondary to the patient having high probability of clinically significant/life threatening deterioration in the patient's condition which required my urgent intervention. Impression: 1. Abdominal pain 2. Tachycardia Dispo: Discharge home This note was generated with [employer] dictation software. It may contain incorrect words, spelling, and punctuation that were not noted in review of the chart prior to signing. Lab Data Labs: Laboratory Results - last 24 hr 05/07/24 03:53 WBC 9.3 RBC 4.10 L Hgb 12.9 Hct 38.6 MCV 94.1 MCH 31.5 MCHC 33.4 RDW Std Deviation 43.5 RDW Coeff of Leanne 12.5 Plt Count 220 MPV 9.4 Immature Gran % (Auto) 0.600 Neut % (Auto) 54.9 Lymph % (Auto) 35.2 Catron % (Auto) 6.7 Eos % (Auto) 2.0 Baso % (Auto) 0.6 Absolute Neuts (auto) 5.1 Absolute Lymphs (auto) 3.27 Nucleated RBC % 0 Sodium 137 Potassium 4.5 Chloride 100 Carbon Dioxide 30.0 Anion Gap 7 BUN 19 H Creatinine 1.38 H Estim Creat Clear Calc 39.90 Est GFR (MDRD) Af Amer 52 L Est GFR (MDRD) Non-Af 43 L BUN/Creatinine Ratio 13.8 Glucose 149 H Calcium 9.4 Total Bilirubin 0.50 AST 13 L ALT 13 Alkaline Phosphatase 69 Total Protein 7.5 Albumin 4.0 Globulin 3.5 Albumin/Globulin Ratio 1.1 Lipase 30 Radiography Diagnostic Testing: Clinical Impression(s) from Imaging Studies Abdomen/Pelvis CT 05/07/24 03:51 IMPRESSION: 1. No acute abdominal pelvic abnormality. 2. Fatty liver. 3. Cholecystectomy. 4. Scattered diverticula without diverticulitis. Electronically Signed: Kale Ivey MD at 5:04 EDT , Discharge Plan Triage Chief Complaint: Abd Pain ED Provider: James Baidr Dx/Rx/DC Orders Clinical Impression: Abdominal pain Instructions: Abdominal Pain Prescriptions: New dicyclomine 20 mg tablet 20 mg PO TID PRN (Reason: abdominal pain) 3 Days Qty: 9 0RF ondansetron 4 mg tablet,disintegrating 4 mg PO Q8H PRN PRN (Reason: Nausea) Qty: 10 0RF No Action propranolol 10 mg tablet 10 mg PO TID PRN (Reason: anxiety) Qty: 90 0RF mirtazapine 7.5 mg tablet 7.5 mg PO QHS Qty: 30 1RF venlafaxine 75 mg tablet 75 mg PO DAILY Qty: 30 1RF Primary Care Provider: Julia Diaz Referrals: FriendJohny DO [Med Staff - Active Staff] - Activity Restrictions/Additional Instructions: Thank you for trusting us with your care today! Your laboratory and imaging studies were unremarkable for acute life or limb threatening diseases. Specifically no evidence of acute surgical pathology of your abdomen. Please take Tylenol (2 pills, 650 mg), ibuprofen (2 pills, 400 mg) every 6 hours as needed for pain and fever control. Please take Bentyl as needed for abdominal pain. Please take Zofran as needed for nausea and vomiting. Please return to the emergency department if your symptoms change or worsen. Please follow with your primary care physician for further outpatient evaluation and management. Print Language: [place] Disposition Disposition: Home, Self Care
--- NOTE | 2024-05-07 03:51 | CT_ITS ---
EXAM: CT ABDOMEN AND PELVIS WITH INTRAVENOUS CONTRAST CLINICAL INDICATION: upper abdominal pain TECHNIQUE: Helically acquired images were obtained of the abdomen and pelvis with intravenous contrast. This CT exam was performed using one or more of the following dose reduction techniques: automated exposure control, adjustment of the mA and/or kV according to patient size, and/or use of iterative reconstruction technique. CONTRAST: 75 cc of Isovue-370 IV. RADIATION DOSE: CTDIvol = 12.18 mGy, DLP = 398.36 mGy-cm COMPARISON: 07/18/2023. FINDINGS: LOWER THORAX: Unremarkable. Lung bases are clear. No cardiomegaly. No significant pericardial effusion. ABDOMEN: LIVER: There is diffuse low-attenuation of the liver. GALLBLADDER AND BILE DUCTS: Cholecystectomy. No intra- or extrahepatic biliary ductal dilation. PANCREAS: Unremarkable. No focal cystic or solid mass. SPLEEN: Unremarkable. Normal size without focal cystic or solid mass. ADRENALS: Unremarkable. No nodules. KIDNEYS AND URETERS: Unremarkable. Normal renal size and position. No hydronephrosis. STOMACH AND BOWEL: Scattered diverticula without diverticulitis. No stomach or bowel distention. PELVIS: APPENDIX: No evidence of acute appendicitis. BLADDER: Unremarkable. REPRODUCTIVE: Unremarkable as visualized. No mass. ABDOMEN and PELVIS: INTRAPERITONEAL SPACE: Unremarkable. No ascites or other fluid collection. No free air. BONES/JOINTS: Unremarkable. No suspicious lytic or blastic abnormality. SOFT TISSUES: Unremarkable. No discrete abdominal or pelvic wall hernia. VASCULATURE: Unremarkable. Abdominal aorta is non-dilated. LYMPH NODES: Unremarkable. No enlarged lymph nodes. CT/Abdomen/Pelvis W IV Cont ONLY IMPRESSION: 1. No acute abdominal pelvic abnormality. 2. Fatty liver. 3. Cholecystectomy. 4. Scattered diverticula without diverticulitis. Electronically Signed: Kale Ivey MD at 5:04 EDT ,
[2024-05-07] MEDS: Ketorolac 15 MG/ML Vial IV (03:58)
[2024-05-07] MEDS: 0.9% Normal Saline (1000mL) 1,000 ML 999 ML IV (03:58)
[2024-05-07] MEDS: Ondansetron 4 MG/2 ML Vial IV (03:58)
[2024-05-07 04:00] LABS: Absolute Lymphocyte Count 3.27 X10^3/uL (0.83-4.51); Absolute Neutrophil Count 5.1 X10^3/uL (2.0-7.7); Basophil# 0.06 X10^3/uL; Basophil% 0.6 % (0-1); Eosinophil# 0.19 X10^3/uL; Hematocrit 38.6 % (37-47); Hemoglobin 12.9 g/dL (12.0-15.0); Lymphocyte # 3.27 X10^3/ul (0.83-4.51); Lymphocyte % 35.2 % (19-41); Mean Corp Hgb Conc 33.4 g/dL (32-36); Mean Corpuscular Hgb 31.5 pg (27.0-32.0); Mean Corpuscular Volume 94.1 fL (81-99); Mean Platelet Vol. 9.4 fl (6.2-12.0); Monocyte# 0.62 X10^3/uL; Monocyte% 6.7 % (0-10); NRBC Flagged by Analyzer 0 % (0-5); Neutrophil # 5.08 X10^3/uL (2.7-7.7); Neutrophil % 54.9 % (47-70); Platelet Count 220 K/mm3 (150-450); RBC Distribution Width CV 12.5 % (11.6-14.6); RBC Distribution Width SD 43.5 fl (35.1-43.9); White Blood Count 9.3 K/mm3 (4.4-11.0)
[2024-05-07 04:17] LABS: ALB/GLOB Ratio 1.1 RATIO (0.9-2.4); AST(SGOT) 13 U/L (15-37); Alanine Aminotransfer ALT/SGPT 13 U/L (13-56); Alkaline Phosphatase 69 U/L (45-117); Anion Gap 7 (5-15); BUN 19 mg/dL (7-18); BUN/Creat Ratio 13.8 RATIO (10-20); Calcium,Total 9.4 mg/dL (8.5-10.1); Chloride 100 mmol/L (98-107); Creatinine, Serum 1.38 mg/dL (0.55-1.02); EST Glomerular Filtration Rate 43 mL/min (>60); Est Glom Filt Rate - Afr Amer 52 mL/min (>60); Globulin 3.5 g/dL (2.2-4.2); Glucose 149 mg/dL (74-106); Lipase 30 U/L (13-75); Potassium 4.5 mmol/L (3.5-5.1); Protein, Total 7.5 g/dL (6.4-8.2); Sodium Level 137 mmol/L (136-145)
[2024-05-07] MEDS: Morphine 2 MG/ML Syringe 4 MG IV (04:40)
[2024-05-07 05:18] VITALS: BP 137/69; PULSE 82; RESP 15; TEMP 36.4; O2SAT 97
[2024-05-07 05:59] LABS: Mucous, Urine 0 SEEN /hpf (<or=2+); Red Blood Cells-Urine 0 SEEN /hpf (0-5)
[2024-05-07] MEDS: Metoclopramide 10 MG/2 ML Vial 5 MG IV (06:01)
[2024-05-07 06:10] LABS: Color, Urine Yellow (Yellow); Glucose, Dipstick Normal (Normal); Ketone-Dipstick Negative (Negative); Leukocyte Esterase-Dipstick 25 /ul (Negative); Nitrite-Dipstick Negative (Negative); Occult Blood-Urine Negative /ul (Negative); Protein-Dipstick 30 mg/dl (Negative); Specific Gravity, Urine 1.015 (1.002-1.030); Urine Bilirubin Dipstick Negative (Negative); Urine Clarity Clear (Clear); Urine Urobilinogen Normal (Normal)
[2024-05-07 06:13] VITALS: BP 137/76; PULSE 82; RESP 16; TEMP 36.2; O2SAT 99
[2024-05-07 06:28] LABS: Bacteria 1+ /hpf (None Seen); Squamous Epithelial Cells - UA 0-5 SEEN /hpf (5-10); White Blood Cells 5-10 SEEN /hpf (0-5)
== END 2024-05-07 06:13 | disposition home or self-care (01) ==
PROVIDERS: Emergency Provider Emergency Medicine; PCP Internal Medicine; Visit Provider Emergency Medicine
DX: R10.9 Unspecified abdominal pain (principal); E11.9 Type 2 diabetes mellitus without complications; R00.0 Tachycardia, unspecified; Z87.891 Personal history of nicotine dependence; Z79.899 Other long term (current) drug therapy; Z90.710 Acquired absence of both cervix and uterus; Z90.49 Acquired absence of other specified parts of digestive tract; N20.0 Calculus of kidney
CPT/HCPCS: 74177; 80053; 81001; 83690; 85025; 96361; 96374; 96375; 99284; Q9967; J2405

== ENCOUNTER → 2024-05-30 | Outpatient (CLI) | payer BC, SELFPAY | END | disposition home or self-care (01) | LOC: LAB 11:02 | PROVIDERS: PCP Internal Medicine | DX: R69 Illness, unspecified (principal) | CPT/HCPCS: 36415; 80053; 80061; 82105; 82140; 82306; 82607; 82728; 82784; 82785; 82941; 83010; 83036; 83516; 83540; 83550; 83615; 84165; 84439; 84443; 84481; 85610; 86036; 86037; 86140; 86225; 86235; 86255; 86334; 86671 ==

== ENCOUNTER → 2024-06-02 | Outpatient (CLI) | payer BC, SELFPAY ==
[2024-06-02 14:59] LABS: Absolute Lymphocyte Count 2.04 X10^3/uL (0.83-4.51); Absolute Neutrophil Count 4.4 X10^3/uL (2.0-7.7); Basophil# 0.03 X10^3/uL; Basophil% 0.4 % (0-1); Eosinophils% 1.4 % (0-5); Hematocrit 32.3 % (37-47); Hemoglobin 10.6 g/dL (12.0-15.0); Lymphocyte # 2.04 X10^3/ul (0.83-4.51); Lymphocyte % 29.3 % (19-41); Mean Corp Hgb Conc 32.8 g/dL (32-36); Mean Corpuscular Hgb 31.3 pg (27.0-32.0); Mean Corpuscular Volume 95.3 fL (81-99); Mean Platelet Vol. 9.5 fl (6.2-12.0); Monocyte# 0.41 X10^3/uL; Monocyte% 5.9 % (0-10); NRBC Flagged by Analyzer 0 % (0-5); Neutrophil # 4.35 X10^3/uL (2.7-7.7); Neutrophil % 62.6 % (47-70); Platelet Count 162 K/mm3 (150-450); RBC Distribution Width CV 12.4 % (11.6-14.6); RBC Distribution Width SD 43.4 fl (35.1-43.9); RET-HE 34.1 pg (30-35); Red Blood Count 3.39 M/mm3 (4.2-5.4); Reticulocyte Count 1.27 % (0.5-1.5)
[2024-06-02 15:04] LABS: Erythrocyte Sedimentation Rate 4 mm/hr (0-30)
[2024-06-02 15:10] LABS: Prothrombin Time (Protime)PT. 13.1 SECONDS (11.7-14.9)
[2024-06-02 15:26] LABS: ALB/GLOB Ratio 1.2 RATIO (0.9-2.4); AST(SGOT) 16 U/L (15-37); Alanine Aminotransfer ALT/SGPT 9 U/L (13-56); Albumin, Serum 3.9 g/dL (3.2-5.0); Alkaline Phosphatase 67 U/L (45-117); Anion Gap 6 (5-15); BUN 15 mg/dL (7-18); BUN/Creat Ratio 14.7 RATIO (10-20); CRP 4.75 mg/L (0.0-3.0); Calcium,Total 8.8 mg/dL (8.5-10.1); Chloride 101 mmol/L (98-107); Cholesterol 211 mg/dL (200); Creatinine, Serum 1.02 mg/dL (0.55-1.02); EST Glomerular Filtration Rate 61 mL/min (>60); Est Glom Filt Rate - Afr Amer 73 mL/min (>60); Ferritin 48 ng/mL (8-252); Free T3 2.5 pg/mL (2.18-3.98); Globulin 3.3 g/dL (2.2-4.2); Glucose 70 mg/dL (74-106); High Density Lipoprotein 72 mg/dL; Iron 85 ug/dL (50-170); Iron Binding Capacity,Total 329 ug/dL (250-450); LDH 150 U/L (84-246); PERCENT IRON SATURATION 25.8 % (15.0-55.0); Potassium 3.6 mmol/L (3.5-5.1); Protein, Total 7.2 g/dL (6.4-8.2); Sodium Level 133 mmol/L (136-145); T4 Free Direct 0.87 ng/dL (0.76-1.46); Thyroid Stim Hormone (TSH) 0.834 uIU/mL (0.358-3.740); Triglycerides 91 mg/dL; Very Low Density Lipoprotein 18 mg/dL (5-40)
[2024-06-02 15:51] LABS: Hemoglobin A1c 4.9 % (3.8-5.6)
[2024-06-03 11:47] LABS: Vitamin B12 233 pg/mL (211-911); Vitamin D,25 Hydroxy 21.3 ng/mL
[2024-06-06 03:06] LABS: Pancreatic Elastase, Fecal > 800 (>200)
[2024-06-07 11:09] LABS: Calprotectin, Stool 65 ug/g (0-120)
[2024-06-08 00:07] LABS: ACCA 14 units (0-90); ALCA 6 units (0-60); AMCA 18 units (0-100); Albumin 3.7 g/dL (2.9-4.4); Alpha-1-Globulins 0.3 g/dL (0.0-0.4); Alpha-2-Globulins 0.7 g/dL (0.4-1.0); Cytoplasmic Ab (C-ANCA) <1:20 titer (Neg:<1:20); Endomysial Antibody IgA Negative (Negative); Gamma Globulin 0.8 g/dL (0.4-1.8); Gastrin, Serum 113 pg/mL (0-115); Haptoglobin 138 mg/dL (33-346); Immunoglobulin A 208 mg/dL (87-352); Immunoglobulin E 23 IU/mL (6-495); Immunoglobulin G 912 mg/dL (586-1602); Immunoglobulin M 49 mg/dL (26-217); PROEL- TOTAL PROTEIN 6.5 g/dL (6.0-8.5); Perinuclear Ab (P-ANCA) <1:20 titer (Neg:<1:20); gASCA 47 units (0-50); t-Transglutaminase IgA <2 U/mL (0-3)
[2024-06-09 11:10] LABS: Anti-Centromere B Ab <0.2 AI (0.0-0.9); Anti-Chromatin <0.2 AI (0.0-0.9); Anti-Jo <0.2 AI (0.0-0.9); Anti-Scleroderma-70 AB <0.2 AI (0.0-0.9); Anti-dsDNA Ab <1 IU/mL (0-9); RNP Ab <0.2 AI (0.0-0.9); SJOGREN'S Anti-SS-A test < 0.2 AI (0.0-0.9); SJOGREN'S Anti-SS-B test < 0.2 AI (0.0-0.9); Smith Ab <0.2 AI (0.0-0.9)
== END | disposition home or self-care (01) ==
LOC: LAB 13:32
PROVIDERS: PCP Internal Medicine
DX: K21.9 Gastro-esophageal reflux disease without esophagitis (principal); K59.9 Functional intestinal disorder, unspecified; K31.89 Other diseases of stomach and duodenum; K58.9 Irritable bowel syndrome, unspecified
CPT/HCPCS: 36415; 80053; 80061; 82306; 82607; 82653; 82728; 82784; 82785; 82941; 83010; 83036; 83516; 83540; 83550; 83615; 83630; 83993; 84165; 84439; 84443; 84481; 85025; 85045; 85610; 85652; 86036; 86037; 86140; 86225; 86235; 86255; 86334; 86671

== ENCOUNTER → 2024-06-14 | Outpatient (CLI) | payer BC, SELFPAY ==
--- NOTE | 2024-06-14 08:53 | US_ITS ---
STUDY: ABDOMINAL ULTRASOUND - RIGHT UPPER QUADRANT; ELASTOGRAPHY REASON FOR VISIT: Female, 53 years old. Fatty infiltration of the liver. TECHNIQUE: Ultrasound evaluation of the right upper quadrant was performed with real-time and static watkins-scale imaging. Point quantification shear wave elastography was performed ([employer]). TECHNICAL QUALITY: Adequate. COMPARISON: Comparison is made with prior CT scan of the abdomen and pelvis-May 07, 2024. FINDINGS: Liver: The liver measures 15 cm. There is increased echogenicity consistent with fatty infiltration. The bile ducts are within normal limits. There is hepatic color flow. The direction of portal flow is hepatopetal. There is no demonstrated mass lesion. Median liver stiffness measured 5.8 kPa. Gallbladder: The patient is status post cholecystectomy. Common Bile Duct (C.B.D.): The common bile duct measures 3.2 mm. Pancreas: There is normal echogenicity of the visualized pancreas. There is no demonstrated pancreatic mass or cyst. Right Kidney: Normal size of the right kidney. The right kidney measures 10.2 cm x 3.7 cm x 3.5 cm. Normal renal cortex. The right cortex measures 1.0 cm. There is no demonstrated renal mass or cyst. There is no right hydronephrosis. US/ABD Limited w/ Elastography IMPRESSION: 1. Liver stiffness measures 5.8 kPa compatible with F0-F1 (Normal to mild liver fibrosis) Metavir score. Electronically Signed: Justin Laguerre MD at 13:57 EDT ,
== END | disposition home or self-care (01) ==
LOC: US 08:49
PROVIDERS: PCP Internal Medicine
DX: K31.89 Other diseases of stomach and duodenum (principal)
CPT/HCPCS: 76705; 76981

== ENCOUNTER → 2024-07-01 | Outpatient (CLI) | payer BC, SELFPAY ==
--- NOTE | 2024-07-01 12:02 | NM_ITS ---
CLINICAL: 53-year-old female with history of chronic nausea, clinical gastroparesis and early satiety. SEMI-SOLID PHASE 99m Tc SULFUR COLLOID GASTRIC EMPTYING STUDY COMPARISON: None available FINDINGS: The patient was administered 1.1 mCi of 99m Tc sulfur colloid mixed with oatmeal and consumed per os. Image acquisitions in the anterior-posterior projections were obtained for 60 minutes. There is prompt visualization of the stomach. There is no gastroesophageal reflux identified. Minimal emptying of the gastric contents is defined. The T ? linear fit was calculated to be 199.06 minutes, (Normal: 12-56 minutes). NM/Gastric Emptying Study IMPRESSION: 1. ABNORMAL 99m Tc sulfur colloid semi-solid phase (oatmeal) gastric emptying imaging examination. A. There is delayed semi-solid phase gastric emptying compared to normal controls. (Kylee et al, J Nucl Med Tech 38: 186, 2010). Electronically Signed: Demian Perdomo DO at 11:04 EST ,
== END | disposition home or self-care (01) ==
LOC: NM 12:01
PROVIDERS: PCP Internal Medicine
DX: K31.89 Other diseases of stomach and duodenum (principal)
CPT/HCPCS: 78264; A9541

== ENCOUNTER 2024-07-07 10:12 | Day surgery (SDC) | payer BC, SELFPAY ==
[2024-07-07] VITALS (8 sets, daily range): BP systolic 98–149; BP diastolic 65–95; PULSE 104–124; RESP 16–18; TEMP 36.3–36.6; O2SAT 98–100; BMI 21.9
--- NOTE | 2024-07-07 10:33 | HP.PCM_ITS ---
History and Physical Date of Admission: 07/07/24 OV 05.30.24 pt reports that she was in the ER on 05.07.24 for lower abdominal cramping. Pt reports ongoing symptoms of daily nausea, alternating bowel movements, lower abdominal cramping, HB, and difficulty swallowing. Pt reports that when she eats it feels like her food is getting stuck behind breastbone. Pt reports that she takes 20mg famotidine daily, states this is not helpful for her HB. Pt reports that she began having dental implants surgery on February 17, 2024 and since then all of her symptoms seem to have worsened. States that last EGD and Colonoscopy were in 2017. PFSH Medical History Diarrhea LUQ pain Diabetes Anxiety Surgical History History of suburethral sling procedure H/O: hysterectomy H/O laparoscopy H/O bone graft Bile leak gallbladder tubal ligation delivery delivered Family History Father Cancer skin cancer Heart disease DiabetesMother DiabetesGrandfather CancerGrandmother Cancer colonAunt Cancer endometrialBrother Polycystic kidney Social History Smoking Status: Former smoker alcohol intake: former details: Sober x 3.5 years substance use type: does not use caffeine: Yes (patient drinks more than 4 caffinated beverages per day) what type of physical activity do you participate in: none seatbelt use: always additional social history: Kayden is her boyfriend and he works at [employer] Details: XUAN IRVING, is a 53 F who presents to the office today for establishment with [facility] for complaints of chronic nausea and constipation. She reports difficulty chewing due to the process of dental implantations started in February of this year. She denies difficulty swallowing. Reports daily severe nausea, heartburn, reflux, abdominal fullness with minimal ingestion of food/liquids, bloating, cramping and constipation. She reports BM 1-2x/week. When she is able to have a MB she will spend most of the day evacuating her bowels. She reports attempting to stay with low FODMAP foods. Denies diarrhea, hematochezia and melena. Denies change in water source, has city water. Reports daily ingestion of 2 cans of Coca-cola, reduced from much more, but I know it's not good for me and I don't want it to stain my new teeth. She reports history of being an alcoholic, drinking 1-2 small bottles of vodka daily; states being sober for the last 4 years and the thought of it makes her ill. For her nausea she's used Zofran, but had to double the dose for it to work and it made her constipation worse. She had success with Bentyl and her abdominal cramping. And she reports using Dulcolax that made her cramping and pain so much worse, she took herself to the ER. Abdominal/pelvis CT from [facility] ER visit on 05.07.24 showed fatty liver, diverticula, and cholecystectomy. ROS Const Constitutional: Positive for anorexia, fatigue, headache(s), decreased energy and weight change (weight loss); No fever(s) Eyes Eyes: No change in vision ENT ENT: Positive for headache(s) and difficulty swallowing; No abnormal hearing Resp Respiratory: No cough Cardio Cardiology: No chest pain at rest, chest pain with exertion or leg pain with exertion Gastro GI: Positive for abdominal pain, bloating, change in bowel habits, constipation, diarrhea, heartburn, difficulty swallowing, excessive flatus and nausea/dyspepsia; No belching, change in stool character, coffee ground emesis, cramping, feeling full early, incontinent of stools, Vomiting blood/hematemesis, Blood in stool, loose stools, Black,tarry stools, pain with swallowing, vomiting or other Genitourinary-Female: No difficulty urinating Musc Musculoskeletal: No joint pain or leg pain with exertion Skin Skin: No yellowing of the eye or itchy eyes Neuro Neurology: Positive for headache(s), tremor(s) and other (vertigo); No abnormal hearing Psych Psychiatric: Positive for anxiety and Positive for depression Endo Endocrine: Positive for fatigue and weight change (weight loss) Aller/Imm Allergy/Immunologic: No food intolerance or itchy eyes Miki/Lymp Hematologic/Lymphatic: Positive for easy bruising; No easy bleeding Exam Const General: cooperative, comfortable and no acute distress Nutritional Appearance: average body habitus HENMT Head: normal to inspection Ears: hearing grossly normal bilaterally Nose: external nose normal Face and sinus: normal facial exam and face symmetric Eyes General: appearance normal, both eyes and all related structures Sclera: sclerae normal Neck Neck: normal visual inspection and full ROM Neck mass: No Chest Chest palpation & inspection: normal inspection of the chest Resp Effort & Inspection: normal respiratory effort, able to speak in complete sentences and symmetric chest movement GI Inspection: distended Auscultation: normal bowel sounds Skin General: no rashes or lesions noted Neuro General: patient alert, patient awake, patient oriented x3 and moves all extremities Cognition: normal cognition Speech: speech normal Gait: normal gait Extrem General: full ROM Psych Appearance: well kempt Mental Status: mental status grossly normal Mood: congruent mood Affect: normal affect Speech and Movement: speech and movement normal Attitude: cooperative Thought Process: normal Assessment and Plan Assessment and Plan (1) Gastric dysmotility: Status: Acute Plan: XUAN IRVING, is a 53 F who presents to the office today for establishment with [facility] for complaints of chronic nausea and constipation. Differential diagnoses include: gastroparesis, DM2, gastric outlet obstruction, CIC, IBS-C, IBD, colonic dysmotility, anemia. Discussed plan with her. * blood for DM, IBS/D, thyroid, inflammatory, anemia markers * stool for inflammatory, enzyme markers * GET for abdominal distention, reflux, early satiety * EGD for heartburn, reflux, gastric outlet obstruction * ltd liver US w/elastography * pantoprazole 20mg PO BID * famotidine 20mg PO QHS * dicyclomine 10mg PO BID * scopolamine 1 patch q72hr * PEG 3350 8.5gm PO BID * call with results * office follow-up 3 months(2) Colonic dysmotility: Status: Acute (3) GERD (gastroesophageal reflux disease): Status: Acute Qualifiers: Esophagitis presence: esophagitis presence not specified Qualified Code(s): K21.9 - Gastro-esophageal reflux disease without esophagitis Orders: Orders Gastric Emptying Study Today K31.89 - Other diseases of stomach and duodenum ABD Limited w/ Elastography Today K31.89 - Other diseases of stomach and duodenum Ferritin Today K21.9 - Gastro-esophageal reflux disease without esophagitis, K31.89 - Other diseases of stomach and duodenum, K59.9 - Functional intestinal disorder, unspecified PATRIA + Protein Elect, Serum Today K21.9 - Gastro-esophageal reflux disease without esophagitis, K31.89 - Other diseases of stomach and duodenum, K59.9 - Functional intestinal disorder, unspecified Iron Binding Capacity,Total Today K21.9 - Gastro-esophageal reflux disease without esophagitis, K31.89 - Other diseases of stomach and duodenum, K59.9 - Functional intestinal disorder, unspecified LDH Today K21.9 - Gastro-esophageal reflux disease without esophagitis, K31.89 - Other diseases of stomach and duodenum, K59.9 - Functional intestinal disorder, unspecified Retic Panel Count Today K21.9 - Gastro-esophageal reflux disease without esophagitis, K31.89 - Other diseases of stomach and duodenum, K59.9 - Functional intestinal disorder, unspecified Iron Today K21.9 - Gastro-esophageal reflux disease without esophagitis, K31.89 - Other diseases of stomach and duodenum, K59.9 - Functional intestinal disorder, unspecified Celiac Disease Profile Today K21.9 - Gastro-esophageal reflux disease without esophagitis, K31.89 - Other diseases of stomach and duodenum, K59.9 - Functional intestinal disorder, unspecified Haptoglobin Today K21.9 - Gastro-esophageal reflux disease without esophagitis, K31.89 - Other diseases of stomach and duodenum, K59.9 - Functional intestinal disorder, unspecified KANDIS Comprehensive Panel Today K21.9 - Gastro-esophageal reflux disease without esophagitis, K31.89 - Other diseases of stomach and duodenum, K59.9 - Functional intestinal disorder, unspecified ANCA Today K21.9 - Gastro-esophageal reflux disease without esophagitis, K31.89 - Other diseases of stomach and duodenum, K59.9 - Functional intestinal disorder, unspecified Calprotectin, Stool Today K21.9 - Gastro-esophageal reflux disease without esophagitis, K31.89 - Other diseases of stomach and duodenum, K59.9 - Functional intestinal disorder, unspecified CRP Today K21.9 - Gastro-esophageal reflux disease without esophagitis, K31.89 - Other diseases of stomach and duodenum, K59.9 - Functional intestinal disorder, unspecified Erythrocyte Sed Rate Today K21.9 - Gastro-esophageal reflux disease without esophagitis, K31.89 - Other diseases of stomach and duodenum, K59.9 - Functional intestinal disorder, unspecified Free T3 Today K21.9 - Gastro-esophageal reflux disease without esophagitis, K31.89 - Other diseases of stomach and duodenum, K59.9 - Functional intestinal disorder, unspecified IBD Expanded Profile Today K21.9 - Gastro-esophageal reflux disease without esophagitis, K31.89 - Other diseases of stomach and duodenum, K59.9 - Functional intestinal disorder, unspecified Immunoglobulins G/A/M/E Today K21.9 - Gastro-esophageal reflux disease without esophagitis, K31.89 - Other diseases of stomach and duodenum, K59.9 - Functional intestinal disorder, unspecified Pancreatic Elastase, Fecal Today K21.9 - Gastro-esophageal reflux disease without esophagitis, K31.89 - Other diseases of stomach and duodenum, K59.9 - Functional intestinal disorder, unspecified Stool Lactoferrin/WBC Today K21.9 - Gastro-esophageal reflux disease without esophagitis, K31.89 - Other diseases of stomach and duodenum, K58.9 - Irritable bowel syndrome, unspecified, K59.9 - Functional intestinal disorder, unspecified T4 Free Direct Today K21.9 - Gastro-esophageal reflux disease without esophagitis, K31.89 - Other diseases of stomach and duodenum, K59.9 - Functional intestinal disorder, unspecified Thyroid Stim Hormone (TSH) Today K21.9 - Gastro-esophageal reflux disease without esophagitis, K31.89 - Other diseases of stomach and duodenum, K59.9 - Functional intestinal disorder, unspecified Lipid Profile Today K21.9 - Gastro-esophageal reflux disease without esophagitis, K31.89 - Other diseases of stomach and duodenum, K59.9 - Functional intestinal disorder, unspecified Prothrombin Time w/INR Today K21.9 - Gastro-esophageal reflux disease without esophagitis, K31.89 - Other diseases of stomach and duodenum, K59.9 - Functional intestinal disorder, unspecified Hemoglobin A1c Today K21.9 - Gastro-esophageal reflux disease without esophagitis, K31.89 - Other diseases of stomach and duodenum, K59.9 - Functional intestinal disorder, unspecified AFP, Tumor Marker Today K21.9 - Gastro-esophageal reflux disease without esophagitis, K31.89 - Other diseases of stomach and duodenum, K59.9 - Functional intestinal disorder, unspecified Ammonia Today K21.9 - Gastro-esophageal reflux disease without esophagitis, K31.89 - Other diseases of stomach and duodenum, K59.9 - Functional intestinal disorder, unspecified Vitamin D,25 Hydroxy Today K21.9 - Gastro-esophageal reflux disease without esophagitis, K31.89 - Other diseases of stomach and duodenum, K59.9 - Functional intestinal disorder, unspecified Vitamin B12 Today K21.9 - Gastro-esophageal reflux disease without esophagitis, K31.89 - Other diseases of stomach and duodenum, K59.9 - Functional intestinal disorder, unspecified Gastrin, Serum Today K21.9 - Gastro-esophageal reflux disease without esophagitis, K31.89 - Other diseases of stomach and duodenum, K59.9 - Functional intestinal disorder, unspecified Comprehensive Metabolic Profil Today K21.9 - Gastro-esophageal reflux disease without esophagitis, K31.89 - Other diseases of stomach and duodenum, K59.9 - Functional intestinal disorder, unspecified CBC W/Diff, Automated Today K21.9 - Gastro-esophageal reflux disease without esophagitis, K31.89 - Other diseases of stomach and duodenum, K59.9 - Functional intestinal disorder, unspecified Medications: New pantoprazole 20 mg PO QDAY 60 tabs 2RF dicyclomine 10 mg PO BID 60 caps 2RF scopolamine base 1 patch transdermal Q72H 24 ea 0RF famotidine (Pepcid) 20 mg PO QHS 30 tabs 2RF polyethylene glycol 3350 8.5 grams PO BID 510 grams 1RF Discontinued dicyclomine Discontinued Reason: Order Changed 20 mg PO TID 3 days PRN 9 tabs 0RF abdominal pain Coding Level of Care Code New Pt Off vis,new,level 4 Patient Type New History Comprehensive Exam Comprehensive Medical Decision Making Moderate Complexity Diagnoses Gastric dysmotility K31.89 Colonic dysmotility K59.9 Gastroesophageal reflux disease, unspecified whether esophagitis present K21.9 Esophagitis presence: esophagitis presence not specified I have examined the patient and the H&P has been reviewed. There are no clinical changes since date of exam.
--- NOTE | 2024-07-07 11:15 | IMM_PTH ---
PATIENT: XUAN IRVING LOC: EN U#:[id number] AGE/SX: 53/F ROOM: RE07/07/[address]: Dr. Johny Singh DO : 1970 BED: DIS: 07/07/2024 SPEC #: [id number] RECD: 07/07/24 13:56 STATUS: DIONISIO REQ #: [id number] SANDIE: 07/07/24 11:[address]: Johny Singh DEPT: IMMUNOHISTOCHEMISTRY RECD BY: Gerald Hayward ENTERED: 07/07/24 13:56 SP TYPE: IMMUNO OTHR DR: Dr. Julia Diaz MD Tissues: B - Gastric mucous membrane Procedures: H Pylori (initial) PHYSICIAN & INSTITUTION [place] [address] SPECIMEN INFORMATION: Tissue Source: B- Gastric body biopsy Clinical Info: Gastric dysmotility, GERD Specimen Number: [id number] CPT code: 61233 METHODOLOGY: Deparaffinized sections of prefer/formalin-fixed tissue or PAP/DQ stained slides are incubated with monoclonal/polyclonal antibodies/oligonucleotide probes. Localization is made via biotin free immunoperoxidase method. Appropriate controls are performed and reacted as expected. Results on target cell population are indicated in the following table: RESULTS: ANTIBODY / CLONE RESULT Block B H Pylori (polyclonal) negative These tests were developed and their performance characteristics determined by [facility]. They may not have been cleared or approved by the U.[place]. Food and Drug Administration. The FDA has determined that such clearance or approval is not necessary. The above immunohistochemical/dualISH markers are ordered and reviewed by the Pathologist. INTERPRETATION: B. Gastric body, biopsy: Negative for Helicobacter pylori organisms. 07/08/2024
--- NOTE | 2024-07-07 11:15 | EGD_PTH ---
PATIENT: XUAN IRVING LOC: EN U#:[id number] AGE/SX: 53/F ROOM: RE07/07/[address]: Dr. Johny Singh DO : 1970 BED: DIS: 07/07/2024 SPEC #: [id number] RECD: 07/07/24 13:26 STATUS: DIONISIO REEllei #: [id number] SANDIE: 07/07/24 11:[address]: Johny iSngh DEPT: SURGICAL PATHOLOGY RECD BY: Jayshree White ENTERED: 07/07/24 14:29 SP TYPE: EGD BIOPSY RACHEL DR: Dr. Julia Diaz MD Tissues: A - Pyloric sphincter B - Gastric mucous membrane Procedures: Surgery Specimen Level IV HEADER OPERATION: EGD with biopsy PRE-OP DIAGNOSIS: Gastric dysmotility TISSUE SUBMITTED: A- Pyloric sphincter biopsy, B- Gastric body biopsy MICROSCOPIC DIAGNOSIS A. Pyloric sphincter, biopsy: Mild gastritis. See microscopic description. B. Gastric body, biopsy: Mild gastritis. See microscopic description and comment. 07/08/2024 COMMENT B. The results of immunohistochemistry for Helicobacter pylori will be reported separately ([id number]). MICROSCOPIC DESCRIPTION Slides are reviewed. A & B. The specimen shows fragments of gastric mucosa with chronic inflammatory cell infiltrates in the lamina propria consisting of lymphocytes and plasma cells, consistent with mild chronic gastritis. GROSS DESCRIPTION A. Received in fixative is one container labeled with the patient's name and designated Pyloric sphincter biopsy. The specimen consists of multiple irregular fragments of light blanchard soft tissue that in aggregate measure 1.0 x 0.3 x 0.1 cm. The specimen is totally submitted in one cassette. B. Received in fixative is one container labeled with the patient's name and designated Gastric body biopsy. The specimen consists of multiple irregular fragments of light blanchard soft tissue that in aggregate measure 1.0 x 0.3 x 0.1 cm. The specimen is totally submitted in one cassette. [email or web address] 07/07/2024 TC:3 CPT:96296y5
--- NOTE | 2024-07-07 11:19 | PRE.ANES_ITS ---
ASA Classification* ASA Classification ASA Classification: 2 Assessment & Plan Anesthesia* Anesthesia Assessment Anesthesia Assessment: Discussed sedation and/or anesthesia options, risks, benefits, and alternatives with patient/parents/legal guardian/POA. Questions invited. The patient/parents/legal guardian/POA seems to understand and agrees to proceed with anesthesia plan. Reviewed the physical assessment, medical history, allergy history and patient home medications list prior to surgery/procedure/anesthetic and documented any changes. Performed airway and anesthesia risk assessments. Anesthesia Type Anesthesia Type: MAC History Source History Obtained from:: Patient and Chart Anesthesia Focused Assessment* Temperature: 97.8 F Pulse Rate: 124 Blood Pressure: 149/95 Respiratory Rate: 18 Pulse Ox: 100 Oxygen Delivery Method: Room Air Airway Assessment Mouth opens: 2 cm Mallampati Score: IV Teeth Condition: Upper (Patient is missing top incisors. She has the post for future implant in place) Neck Range of motion (ROM): Full ROM Focused Labs Anesthesia Preop lab: CBC WBC 7.0 K/mm3 (4.4-11.0) 06/02/24 13:35 RBC 3.39 M/mm3 (4.2-5.4) L 06/02/24 13:35 Hgb 10.6 g/dL (12.0-15.0) L 06/02/24 13:35 Hct 32.3 % (37-47) L 06/02/24 13:35 Plt Count 162 K/mm3 (150-450) 06/02/24 13:35 CHEMISTRY Potassium 3.6 mmol/L (3.5-5.1) 06/02/24 13:35 Sodium 133 mmol/L (136-145) L 06/02/24 13:35 Magnesium 1.8 mg/dL (1.8-2.4) 05/12/17 18:45 BUN 15 mg/dL (7-18) 06/02/24 13:35 Creatinine 1.02 mg/dL (0.55-1.02) 06/02/24 13:35 Glucose 70 mg/dL (74-106) L 06/02/24 13:35 POC Glucose 120 mg/dL (70-110) H 10/10/17 11:50 TSH 0.834 uIU/mL (0.358-3.740) 06/02/24 13:35 COAG PT 13.1 SECONDS (11.7-14.9) 06/02/24 13:35 Urine Test Negative Negative 05/13/17 10:20 Pre-Assessment Diagnosis/Proposed Procedure Planned Operative Procedure(s): EGD Anesthesia History Anesthesia History - platform material handling supervisor: Anesthesia History - platform material handling supervisor Hx Hospitalization No 07/04/24 13:40 Any Problems With Anesthesia Yes: N/V 07/04/24 13:40 Cholinesterase deficiency No 07/04/24 13:40 You/Your Family Experience No 07/04/24 13:40 fever (hyperthermia) with Relationship Recent Exposure to Contagious No 07/07/24 11:07 Disease Does patient have nerve No 07/04/24 13:40 stimulator Patient instructed to have device shut off --Does patient have Pacemaker No 07/07/24 11:07 or ICD? When Was Last Pacemaker Check QUESTION #4 FULL TEXT: You/Your Family Experience fever (hyperthermia) with Anesthesia Last Oral Intake Last Oral intake: Last Oral Intake NPO since 20:30 07/07/24 11:07 Meds taken in AM with sips of No 07/07/24 11:07 water? Meds patient instructed to take am of surgery PONV PONV - platform material handling supervisor: PONV - platform material handling supervisor Female Yes 07/04/24 13:40 HX of Motion Sickness Yes 07/04/24 13:40 HX of N/V After Surgery Yes 07/04/24 13:40 Non-Smoker Yes 07/04/24 13:40 Duration of Surgery greater No 07/04/24 13:40 than 60 minutes Number of Risk Factors 4 07/04/24 13:40 PONV Score Severe Risk 07/04/24 13:40 Height & Weight Height & Weight: Anesthesia: Height & Weight Height 5 ft 3 in 07/07/24 11:07 Weight: 56.2 kg 07/07/24 11:07 Body Mass Index (BMI) 21.9 07/07/24 11:07 Respiratory Assessment Respiratory Assessment - platform material handling supervisor: Respiratory Tract Infection Hx - platform material handling supervisor Hx Respiratory Tract Infection No 07/04/24 13:40 STOP Sleep Apnea STOP Sleep Apnea - platform material handling supervisor: STOP Sleep Apnea - platform material handling supervisor Hx Hypertension No: . 07/04/24 13:40 Hx Sleep Apnea No 07/04/24 13:40 CPAP BIPAP Do you snore loudly (louder No 07/04/24 13:40 than talking or can be heard Do you often feel tired/ No 07/04/24 13:40 fatigued/ sleepy during daytime? Has anyone observed you stop No 07/04/24 13:40 breathing during sleep? STOP Results Negative 07/04/24 13:40 QUESTION #5 FULL TEXT : Do you snore loudly (louder than talking or can be heard through closed doors)? Tobacco Use History Tobacco Use History - platform material handling supervisor: Tobacco Use History - platform material handling supervisor Tobacco Use Smoking Status Former smoker 07/04/24 13:40 Hx Tobacco Use No 07/04/24 13:40 Years Smoking Packs Smoked per Day Smoking Cessation Date was No - quit smoking greater 07/04/24 13:40 within the last 15 years than 15 years ago Hx Smoking Cessation Date Hx Smoking Cessation Counseling Hematologic Medial History Hematologic Hx - platform material handling supervisor: Hematologic Medical Hx - quality process auditor Hx of Blood Transfusion Yes 07/04/24 13:40 Hx of Transfusion in last 3 No 07/04/24 13:40 Months Date of Last Transfusion (if within last 3 months) Ever experience any problems No 07/04/24 13:40 with transfusion(s)? Specify any problems Hx of Preganancy in last 3 No 07/04/24 13:40 Months Nurse Filling Out Transfusion VCHRISTIN 07/04/24 13:40 & Questions: Date: 07/04/24 07/04/24 13:40 Time: 13:41 07/04/24 13:40 Patient unable to answer at this time (ie. confused, unrespo /Reproduction History /Reproductive History - platform material handling supervisor: /Reproductive Hx- platform material handling supervisor Hx Now No 07/04/24 13:40 Gestational Age (in weeks): EDC: Hx Hx Para Hx Section SAB No 07/04/24 13:40 PFSH Medical History Wears glasses Post-menopausal Alcohol use Kidney stones Anemia Injury of head and neck Difficulty swallowing History of diverticulitis Heartburn Former smoker Asthma Shortness of breath on exertion Diarrhea LUQ pain Diabetes Anxiety Home Medications ?Medication ?Instructions ?Recorded ?Last Taken ?Type buspirone 7.5 mg tablet 7.5 mg PO BID #60 tabs 05/27/24 Unknown Rx hydroxyzine HCl 10 mg tablet 10 mg PO TID PRN itching #90 tabs 05/27/24 Unknown Rx mirtazapine 15 mg tablet 15 mg PO QHS #30 tabs 05/27/24 Unknown Rx dicyclomine 10 mg capsule 10 mg PO BID #60 caps 05/30/24 Unknown Rx famotidine 20 mg tablet (Pepcid) 20 mg PO QHS #30 tabs 05/30/24 Unknown Rx pantoprazole 20 mg tablet,delayed 20 mg PO QDAY #60 tabs 05/30/24 Unknown Rx release venlafaxine 75 mg tablet 75 mg PO DAILY #90 tabs 07/01/24 Unknown Rx metoclopramide HCl 5 mg tablet 10 mg (2 x 5 mg) PO QAC 1 month 07/05/24 Unknown Rx #180 tabs Allergy/AdvReac Type Severity Reaction Status Date / Time iron (From Venofer) Allergy Severe Hives Verified 07/07/24 11:07 latex Allergy Rash Verified 07/07/24 11:07 peanut Allergy Abd Verified 07/07/24 11:07 cramps/diarrhea Family History Father Cancer skin cancer Heart disease Diabetes Mother Diabetes Grandfather Cancer Grandmother Cancer colon Aunt Cancer endometrial Brother Polycystic kidney Surgical History History of suburethral sling procedure H/O: hysterectomy H/O laparoscopy H/O bone graft Bile leak gallbladder tubal ligation delivery delivered Social History Smoking Status: Former smoker alcohol intake: former details: Sober x 3.5 years substance use type: does not use caffeine: Yes (patient drinks more than 4 caffinated beverages per day) what type of physical activity do you participate in: none seatbelt use: always additional social history: Kayden is her boyfriend and he works at [employer] Review of Systems (Anesthesia) ROS Narrative System reviewed and no additional complaints, except as documented.
--- NOTE | 2024-07-07 13:03 | PCM.POST.ANE ---
Anesthesia: Postop Eval I Current Vital Signs Temperature: 97.4 F Pulse Rate: 104 Blood Pressure: 119/74 Respiratory Rate: 16 Pulse Ox: 98 Oxygen Delivery Method: Room Air Assessment Airway patent: Yes Spontaneous unlabored respirations: Yes Mental status: Awake nausea: No Vomiting: No Anesthesia Complication: No Fluid Hydration Crystalloid volume administer (ml): 50 Total IV fluid infused: 50 Progress Note Anesthesia document: Postop Eval 1 completed: Yes
--- NOTE | 2024-07-07 13:37 | OP.CCLET_ITS ---
07/07/2024 Julia Diaz [address] [place] [address] Re : Upper GI endoscopy procedure for Sonja Yeung Dear Dr. Diaz This procedure was performed on June. My impressions and recommendations are as follows: Impressions : - Normal esophagus. - Small hiatal hernia. - Erythematous mucosa in the stomach. Biopsied. - Gastric stenosis was found at the pylorus. Biopsied. - No gross lesions in the first portion of the duodenum. Recommendations : - Discharge patient to home. - Resume previous diet today. - Continue present medications. - Await pathology results. My findings are described in the full procedure note, which is enclosed. If I can be of further assistance, please feel free to contact me at . Sincerely, Johny Singh, 07/07/2024 1:37:04 PM This report has been signed electronically.
--- NOTE | 2024-07-07 13:37 | OP.EGD_ITS ---
Patient Name: Sonja Yeung Procedure Date: 07/07/2024 11:31 AM Date of : 1970 Age: 53 Procedure: Upper GI endoscopy Indications: Epigastric abdominal pain Providers: Johny Singh DO Medicines: Monitored Anesthesia Care Patient Profile: This is a 53 year old female. Refer to note in patient chart for documentation of history and physical. Patient has symptoms of acute abdominal cramping, chronic abdominal cramping, acute epigastric abdominal pain and chronic dyspepsia. Complications: No immediate complications. Procedure: Pre-Anesthesia Assessment: - Prior to the procedure, a History and Physical was performed, and patient medications and allergies were reviewed. The patient is competent. The risks and benefits of the procedure and the sedation options and risks were discussed with the patient. All questions were answered and informed consent was obtained. Patient identification and proposed procedure were verified by the physician in the pre-procedure area. Mental Status Examination: alert and oriented. Airway Examination: normal oropharyngeal airway and neck mobility. Respiratory Examination: clear to auscultation. CV Examination: normal. Prophylactic Antibiotics: The patient does not require prophylactic antibiotics. Prior Anticoagulants: The patient has taken no anticoagulant or antiplatelet agents. ASA Grade Assessment: II - A patient with mild systemic disease. After reviewing the risks and benefits, the patient was deemed in satisfactory condition to undergo the procedure. The anesthesia plan was to use monitored anesthesia care (MAC). Immediately prior to administration of medications, the patient was re-assessed for adequacy to receive sedatives. The heart rate, respiratory rate, oxygen saturations, blood pressure, adequacy of pulmonary ventilation, and response to care were monitored throughout the procedure. The physical status of the patient was re-assessed after the procedure. After obtaining informed consent, the endoscope was passed under direct vision. Throughout the procedure, the patient's blood pressure, pulse, and oxygen saturations were monitored continuously. The Endoscope was introduced through the mouth, and advanced to the second part of duodenum. The upper GI endoscopy was accomplished without difficulty. The patient tolerated the procedure well. Scope In: 12:45:25 PM Scope Out: 12:49:07 PM Total Procedure Duration Time 0 hours 3 minutes 42 seconds Findings: The examined esophagus was normal. A small hiatal hernia was present. Diffuse mildly erythematous mucosa without bleeding was found in the entire examined stomach. Biopsies were taken with a cold forceps for histology. Verification of patient identification for the specimen was done. Estimated blood loss was minimal. Biopsies were taken with a cold forceps for Helicobacter pylori testing. Verification of patient identification for the specimen was done. Estimated blood loss was minimal. A benign-appearing, intrinsic moderate stenosis was found at the pylorus. This was traversed. Biopsies were taken with a cold forceps for histology. Verification of patient identification for the specimen was done. Estimated blood loss was minimal. No gross lesions were noted in the first portion of the duodenum. Impression: - Normal esophagus. - Small hiatal hernia. - Erythematous mucosa in the stomach. Biopsied. - Gastric stenosis was found at the pylorus. Biopsied. - No gross lesions in the first portion of the duodenum. Recommendation: - Discharge patient to home. - Resume previous diet today. - Continue present medications. - Await pathology results. Procedure Code(s): --- Professional --- 80919, Esophagogastroduodenoscopy, flexible, transoral; with biopsy, single or multiple CPT copyright 2021 [employer]. All rights reserved. The codes documented in this report are preliminary and upon auditing coder review may be revised to meet current compliance requirements. Johny Singh DO 07/07/2024 1:37:04 PM This report has been signed electronically. Number of Addenda: 0 Note Initiated On: 07/07/2024 11:31 AM
--- NOTE | 2024-07-07 17:05 | PCM.POSTANE2 ---
Anesthesia Postop Eval I Sum Postop Eval Completion status Anesthesia document: Postop Eval 1 completed: Yes Anesthesia Postop Eval I Summary Anesthesia Postop Eval I Summary: Anesthesia Postop Eval I: Assessment Summary Airway patent Yes 07/07/24 13:04 [email or web address] Spontaneous unlabored Yes 07/07/24 13:04 [email or web address] respirations Mental status Awake 07/07/24 13:04 [email or web address] nausea No 07/07/24 13:04 [email or web address] Vomiting No 07/07/24 13:04 [email or web address] Anesthesia Postop Eval I: Fluid Summary Crystalloid volume administer 50 07/07/24 13:04 [email or web address] (ml) Colloids volume administered ( ml) Blood Product volume administered (ml) Total IV fluid infused 50 07/07/24 13:04 [email or web address] Anesthesia Postop Eval I: Summary Notes Anesthesia Complication No 07/07/24 13:04 [email or web address] Anesthesia Complication Comment: Post-operative progress note Anesthesia: Postop Eval II Evaluation Mental status: Awake and Calm Pain Level: 0 nausea: No Vomiting: No
== END 2024-07-07 13:56 | disposition home or self-care (01) ==
LOC: EN 10:14 → AC 10:19
PROVIDERS: PCP Internal Medicine; Referring Provider Internal Medicine; Visit Provider Internal Medicine Gastroenterology
PROC: 0DJ08ZZ Inspection of Upper Intestinal Tract, Via Natural or Artificial Opening Endoscopic (ICD-10-PCS; CPT 43235; principal; 2024-07-07 11:10)
DX: K29.70 Gastritis, unspecified, without bleeding (principal); E11.9 Type 2 diabetes mellitus without complications; K31.1 Adult hypertrophic pyloric stenosis; K44.9 Diaphragmatic hernia without obstruction or gangrene; Z87.891 Personal history of nicotine dependence; K21.9 Gastro-esophageal reflux disease without esophagitis; Z79.899 Other long term (current) drug therapy; Z90.49 Acquired absence of other specified parts of digestive tract; K31.89 Other diseases of stomach and duodenum; K59.9 Functional intestinal disorder, unspecified; J45.909 Unspecified asthma, uncomplicated; D64.9 Anemia, unspecified
CPT/HCPCS: 43239; 88305; 88342; A4216; J2405

== ENCOUNTER → 2024-07-25 | Outpatient (CLI) | payer BC, SELFPAY ==
--- NOTE | 2024-07-25 09:01 | NM_ITS ---
CLINICAL: 53-year-old female with previous abnormal semisolid gastric emptying study, status post pyloric sphincter intervention. SOLID PHASE 99m Tc SULFUR COLLOID GASTRIC EMPTYING STUDY COMPARISON: Semisolid phase gastric emptying study report 07/01/2024 FINDINGS: The patient was administered 1.1 mCi of 99m Tc sulfur colloid mixed with 1 egg and consumed per os. Image acquisitions in the anterior and posterior projection were obtained for 60 minutes. There is prompt visualization of the stomach. There is no gastroesophageal reflux identified. First order kinetics are maintained throughout the duration of the acquisitions. The T1/2 raw data emptying was calculated to be 100.74 minutes, (Normal 65-110 minutes) compared to 199.06 minutes reported on the semisolid phase emptying study dated 07/01/2024. NM/Gastric Emptying Study - 4 HR IMPRESSION: 1. NORMAL 99m Tc sulfur colloid solid phase gastric emptying imaging examination. A. There is normal and preserved solid phase gastric emptying compared to normal controls with maintained first order kinetics throughout all components of the examination. (Memo et al, Gastroenterology 77: 75, 1979 Andrzej et al, Semin Nucl Med 12: 116, 1981 Oliver et al, SNM Procedure Guidelines Adult Solid Meal Gastric Emptying Study 3.0 [email or web address]). B. Compared to the semisolid phase gastric emptying study dated 07/01/2024, there is normalization of quantitative gastric emptying as defined above. Electronically Signed: Demian Perdomo DO at 9:38 EST ,
== END | disposition home or self-care (01) ==
PROVIDERS: PCP Internal Medicine
DX: K31.84 Gastroparesis (principal)
CPT/HCPCS: 78264; A9541

== ENCOUNTER 2024-10-17 11:04 | Day surgery (SDC) | payer BC, SELFPAY ==
--- NOTE | 2024-10-11 14:52 | PAT.ANESEVAL ---
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 When Was Last Pacemaker Check QUESTION #4 FULL TEXT: You/Your Family Experience fever (hyperthermia) with Anesthesia Last Oral Intake Last Oral intake: Last Oral Intake NPO since Meds taken in AM with sips of water? Meds patient instructed to take am of surgery PONV PONV - molded parts inspector: PONV - molded parts inspector Female Yes 10/11/24 11:38 HX of Motion Sickness Yes 10/11/24 11:38 HX of N/V After Surgery No 10/11/24 11:38 Non-Smoker Yes 10/11/24 11:38 Duration of Surgery greater No 10/11/24 11:38 than 60 minutes Number of Risk Factors 3 10/11/24 11:38 PONV Score Moderate Risk 10/11/24 11:38 Height & Weight Height & Weight: Anesthesia: Height & Weight Height 5 ft 3 in 09/02/24 11:05 Respiratory Assessment Respiratory Assessment - molded parts inspector: Respiratory Tract Infection Hx - molded parts inspector Hx Respiratory Tract Infection No 10/11/24 11:38 STOP Sleep Apnea STOP Sleep Apnea - molded parts inspector: STOP Sleep Apnea - molded parts inspector Hx Hypertension No: . 10/11/24 11:38 Hx Sleep Apnea No 10/11/24 11:38 CPAP BIPAP Do you snore loudly (louder No 10/11/24 11:38 than talking or can be heard Do you often feel tired/ No 10/11/24 11:38 fatigued/ sleepy during daytime? Has anyone observed you stop No 10/11/24 11:38 breathing during sleep? STOP Results Negative 10/11/24 11:38 QUESTION #5 FULL TEXT : Do you snore loudly (louder than talking or can be heard through closed doors)? Tobacco Use History Tobacco Use History - molded parts inspector: Tobacco Use History - molded parts inspector Tobacco Use Smoking Status Former smoker 10/11/24 11:38 Hx Tobacco Use No 10/11/24 11:38 Years Smoking Packs Smoked per Day Smoking Cessation Date was Yes - quit smoking within 15 10/11/24 11:38 within the last 15 years years Hx Smoking Cessation Date Hx Smoking Cessation Counseling Hematologic Medial History Hematologic Hx - molded parts inspector: Hematologic Medical Hx - bar assistant Hx of Blood Transfusion Yes 10/11/24 11:38 Hx of Transfusion in last 3 No 10/11/24 11:38 Months Date of Last Transfusion (if within last 3 months) Ever experience any problems No 10/11/24 11:38 with transfusion(s)? Specify any problems Hx of Preganancy in last 3 No 10/11/24 11:38 Months Nurse Filling Out Transfusion VCHRISTIN 10/11/24 11:38 & Questions: Date: 10/11/24 10/11/24 11:38 Time: 11:39 10/11/24 11:38 Patient unable to answer at this time (ie. confused, unrespo /Reproduction History /Reproductive History - molded parts inspector: /Reproductive Hx- molded parts inspector Hx Now No 10/11/24 11:38 Gestational Age (in weeks): EDC: Hx Hx Para Hx Section SAB No 10/11/24 11:38 PFSH Medical History Wears glasses Post-menopausal Alcohol use Kidney stones Anemia Injury of head and neck Difficulty swallowing History of diverticulitis Heartburn Former smoker Asthma Shortness of breath on exertion Diarrhea LUQ pain Diabetes Anxiety Home Medications ?Medication ?Instructions ?Recorded ?Last Taken ?Type venlafaxine 75 mg tablet 75 mg PO DAILY #90 tabs 07/01/24 Unknown Rx metoclopramide HCl 5 mg tablet 10 mg (2 x 5 mg) PO QAC 1 month 07/05/24 Unknown Rx #180 tabs scopolamine base 1 mg over 3 days 1 patch transdermal Q72H #10 ea 07/07/24 Unknown Rx transdermal patch hydroxyzine HCl 25 mg tablet 25 mg PO TID PRN anxiety #90 tabs 07/22/24 Unknown Rx mirtazapine 15 mg tablet 15 mg PO QHS #90 tabs 07/22/24 Unknown Rx dicyclomine 20 mg tablet 20 mg PO BID #60 tabs 08/30/24 Unknown Rx buspirone 10 mg tablet 10 mg PO TID #90 tabs 09/02/24 Unknown Rx famotidine 20 mg tablet (Pepcid) 20 mg PO QHS #30 tabs 09/23/24 Unknown Rx ondansetron 4 mg disintegrating 4 mg PO Q8H PRN nausea and 09/23/24 Unknown Rx tablet vomiting #90 tabs pantoprazole 20 mg tablet,delayed 20 mg PO QDAY #60 tabs 09/23/24 Unknown Rx release Allergy/AdvReac Type Severity Reaction Status Date / Time iron (From Venofer) Allergy Severe Hives Verified 10/11/24 11:35 latex Allergy Rash Verified 10/11/24 11:35 Family History Father Cancer skin cancer Heart disease Diabetes Mother Diabetes Grandfather Cancer Grandmother Cancer colon Aunt Cancer endometrial Brother Polycystic kidney Surgical History (Updated 10/11/24 @ 11:40 by Alondra Zaldivar) History of cystoscopy History of esophagogastroduodenoscopy (EGD) History of suburethral sling procedure H/O: hysterectomy H/O laparoscopy H/O bone graft Bile leak gallbladder tubal ligation delivery delivered Social History Smoking Status: Former smoker alcohol intake: former details: Sober 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 Normal sinus rhythm. Right axis deviation. Nonspecific ST abnormality. Recommendation Anesthesia Recommendation Anesthesia recommendation: OPTIMIZED for anesthesia
[2024-10-17] VITALS (9 sets, daily range): BP systolic 88–128; BP diastolic 63–93; PULSE 94–120; RESP 14–20; TEMP 36.8–37; O2SAT 96–100; BMI 22.9
--- NOTE | 2024-10-17 11:34 | PRE.ANES_ITS ---
ASA Classification* ASA Classification ASA Classification: 2 Assessment & Plan Anesthesia* Anesthesia Assessment Anesthesia Assessment: Discussed sedation and/or anesthesia options, risks, benefits, and alternatives with patient/parents/legal guardian/POA. Questions invited. The patient/parents/legal guardian/POA seems to understand and agrees to proceed with anesthesia plan. Reviewed the physical assessment, medical history, allergy history and patient home medications list prior to surgery/procedure/anesthetic and documented any changes. Performed airway and anesthesia risk assessments. Anesthesia Type Anesthesia Type: MAC Anesthesia Focused Assessment* Airway Assessment Mouth opens: >3 cm Mallampati Score: II Focused Labs Anesthesia Preop lab: CBC WBC 7.0 K/mm3 (4.4-11.0) 06/02/24 13:35 06/02/24 RBC 3.39 M/mm3 (4.2-5.4) L 06/02/24 13:35 06/02/24 Hgb 10.6 g/dL (12.0-15.0) L 06/02/24 13:35 4 Hct 32.3 % (37-47) L 06/02/24 13:35 06/02/24 Plt Count 162 K/mm3 (150-450) 06/02/24 13:35 06/02/24 CHEMISTRY Potassium 3.6 mmol/L (3.5-5.1) 06/02/24 13:35 06/02/24 Sodium 133 mmol/L (136-145) L 06/02/24 13:35 06/02/24 Magnesium 1.8 mg/dL (1.8-2.4) 05/12/17 18:45 05/12/17 BUN 15 mg/dL (7-18) 06/02/24 13:35 06/02/24 Creatinine 1.02 mg/dL (0.55-1.02) 06/02/24 13:35 06/02/24 Glucose 70 mg/dL (74-106) L 06/02/24 13:35 06/02/24 POC Glucose 120 mg/dL (70-110) H 10/10/17 11:50 10/10/17 TSH 0.834 uIU/mL (0.358-3.740) 06/02/24 13:35 05/17 03/09 COAG PT 13.1 SECONDS (11.7-14.9) 06/02/24 13:35 Urine Test Negative Negative 05/13/17 10:20 05/13/17 Pre-Assessment Diagnosis/Proposed Procedure Planned Operative Procedure(s): COLONOSCOPY/EGD Anesthesia History 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 When Was Last Pacemaker Check QUESTION #4 FULL TEXT: You/Your Family Experience fever (hyperthermia) with Anesthesia Last Oral Intake Last Oral intake: Last Oral Intake NPO since Meds taken in AM with sips of water? Meds patient instructed to take am of surgery PONV PONV - data center engineer: PONV - data center engineer Female Yes 10/11/24 11:38 HX of Motion Sickness Yes 10/11/24 11:38 HX of N/V After Surgery No 10/11/24 11:38 Non-Smoker Yes 10/11/24 11:38 Duration of Surgery greater No 10/11/24 11:38 than 60 minutes Number of Risk Factors 3 10/11/24 11:38 PONV Score Moderate Risk 10/11/24 11:38 Height & Weight Height & Weight: Anesthesia: Height & Weight Height 5 ft 3 in 10/14/24 13:04 Respiratory Assessment Respiratory Assessment - data center engineer: Respiratory Tract Infection Hx - data center engineer Hx Respiratory Tract Infection No 10/11/24 11:38 STOP Sleep Apnea STOP Sleep Apnea - data center engineer: STOP Sleep Apnea - data center engineer Hx Hypertension No: . 10/11/24 11:38 Hx Sleep Apnea No 10/11/24 11:38 CPAP BIPAP Do you snore loudly (louder No 10/11/24 11:38 than talking or can be heard Do you often feel tired/ No 10/11/24 11:38 fatigued/ sleepy during daytime? Has anyone observed you stop No 10/11/24 11:38 breathing during sleep? STOP Results Negative 10/11/24 11:38 QUESTION #5 FULL TEXT : Do you snore loudly (louder than talking or can be heard through closed doors)? 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 Specify any problems Hx of Preganancy in last 3 No 10/11/24 11:38 Months Nurse Filling Out Transfusion VCHRISTIN 10/11/24 11:38 & Questions: Date: 10/11/24 10/11/24 11:38 Time: 11:39 10/11/24 11:38 Patient unable to answer at this time (ie. confused, unrespo /Reproduction History /Reproductive History - data center engineer: /Reproductive Hx- data center engineer Hx Now No 10/11/24 11:38 Gestational Age (in weeks): EDC: Hx Hx Para Hx Section SAB No 10/11/24 11:38 PFSH Medical History Wears glasses Post-menopausal Alcohol use Kidney stones Anemia Injury of head and neck Difficulty swallowing History of diverticulitis Heartburn Former smoker Asthma Shortness of breath on exertion Diarrhea LUQ pain Diabetes Anxiety Home Medications ?Medication ?Instructions ?Recorded ?Last Taken ?Type metoclopramide HCl 5 mg tablet 10 mg (2 x 5 mg) PO QAC 1 month 07/05/24 10/16/24 Rx #180 tabs scopolamine base 1 mg over 3 days 1 patch transdermal Q72H #10 ea 07/07/24 Unknown Rx transdermal patch hydroxyzine HCl 25 mg tablet 25 mg PO TID PRN anxiety #90 tabs 07/22/24 10/16/24 Rx mirtazapine 15 mg tablet 15 mg PO QHS #90 tabs 10/16/24 Rx dicyclomine 20 mg tablet 20 mg PO BID #60 tabs 10/16/24 Rx famotidine 20 mg tablet (Pepcid) 20 mg PO QHS #30 tabs 09/23/24 10/16/24 Rx ondansetron 4 mg disintegrating 4 mg PO Q8H PRN nausea and 09/23/24 10/16/24 Rx tablet vomiting #90 tabs pantoprazole 20 mg tablet,delayed 20 mg PO QDAY #60 ta bs 09/23/24 10/16/24 Rx release buspirone 10 mg tablet 10 mg PO TID #90 tabs 10/16/24 Rx venlafaxine 75 mg tablet 75 mg PO BID #60 tabs 10/16/24 Rx Allergy/AdvReac Type Severity Reaction Status Date / Time iron (From Venofer) Allergy Severe Hives Verified 10/17/24 11:30 latex Allergy Rash Verified 10/17/24 11:30 Family History Father Cancer skin cancer Heart disease Diabetes Mother Diabetes Grandfather Cancer Grandmother Cancer colon Aunt Cancer endometrial Brother Polycystic kidney Surgical History History of cystoscopy History of esophagogastroduodenoscopy (EGD) History of suburethral sling procedure H/O: hysterectomy H/O laparoscopy H/O bone graft Bile leak gallbladder tubal ligation delivery delivered Social History Smoking Status: Former smoker alcohol intake: former details: Sober 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
--- NOTE | 2024-10-17 11:59 | PCM.HP.STD ---
HPI - General General Date of Admission: 10/17/24 Date of Service: 10/17/24 Chief Complaint: Severe gastroparesis HPI Narrative XUAN IRVING, is a 54 F who presentsXUAN IRVING, is a 53 F who presents to the endoscopy unit today for treatment of severe gastroparesis. BGI established 05.30.24 w/ chronic nausea and constipation. GES 11.15.24; 199 minutes prolonged GES; 12.9.24 100 minutes prolonged Liver Elastography 10.29.24; Liver stiffness measures 5.8 kPa compatible with F0-F1 (Normal to mild liver fibrosis) Metavir score. EGD 07.07.24: - Normal esophagus. - Small hiatal hernia. - Erythematous mucosa in the stomach. Biopsied. - Gastric stenosis was found at the pylorus. Biopsied. - No gross lesions in the first portion of the duodenum. Biochemical work up; Hgb 10.6 L, NA 133 L, CRP 4.75 H, immunology panel normal, IBD panel normal Stool: elastase wnl, elastase wnl *start metoclopramide 10 mg TID OV 08.30.24 Pt continues to have nausea. She is taking metoclopramide and using a scopolamine patch. She feels her food sitting in her stomach. She is trying to eat foods that are easy to digest but feels she is just eating junk and gaining weight from this. She is also having constipation and fecal incontinence. Her last colonoscopy was many years ago. She has a lot going on in her life with her health and her father just had a heartache. [facility] Medical History Wears glasses Post-menopausal Alcohol use Kidney stones Anemia Injury of head and neck Difficulty swallowing History of diverticulitis Heartburn Former smoker Asthma Shortness of breath on exertion Diarrhea LUQ pain Diabetes Anxiety Home Medications ?Medication ?Instructions ?Recorded ?Last Taken ?Type metoclopramide HCl 5 mg tablet 10 mg (2 x 5 mg) PO QAC 1 month 07/05/24 10/16/24 Rx #180 tabs scopolamine base 1 mg over 3 days 1 patch transdermal Q72H #10 ea 07/07/24 Unknown Rx transdermal patch hydroxyzine HCl 25 mg tablet 25 mg PO TID PRN anxiety #90 tabs 07/22/24 10/16/24 Rx mirtazapine 15 mg tablet 15 mg PO QHS #90 tabs 07/22/24 10/16/24 Rx dicyclomine 20 mg tablet 20 mg PO BID #60 tabs 08/30/24 10/16/24 Rx famotidine 20 mg tablet (Pepcid) 20 mg PO QHS #30 tabs 09/23/24 10/16/24 Rx ondansetron 4 mg disintegrating 4 mg PO Q8H PRN nausea and 09/23/24 10/16/24 Rx tablet vomiting #90 tabs pantoprazole 20 mg tablet,delayed 20 mg PO QDAY #60 tabs 09/23/24 10/16/24 Rx release buspirone 10 mg tablet 10 mg PO TID #90 tabs 10/14/24 10/16/24 Rx venlafaxine 75 mg tablet 75 mg PO BID #60 tabs 10/14/24 10/16/24 Rx Allergy/AdvReac Type Severity Reaction Status Date / Time iron (From Venofer) Allergy Severe Hives Verified 10/17/24 11:30 latex Allergy Rash Verified 10/17/24 11:30 Family History Father Cancer skin cancer Heart disease Diabetes Mother Diabetes Grandfather Cancer Grandmother Cancer colon Aunt Cancer endometrial Brother Polycystic kidney Surgical History History of cystoscopy History of esophagogastroduodenoscopy (EGD) History of suburethral sling procedure H/O: hysterectomy H/O laparoscopy H/O bone graft Bile leak gallbladder tubal ligation delivery delivered Social History Smoking Status: Former smoker alcohol intake: former details: Sober x 3.5 years substance use type: does not use caffeine: Yes (patient drinks more than 4 caffinated beverages per day) what type of physical activity do you participate in: none seatbelt use: always additional social history: Kayden is her boyfriend and he works at [employer] Constitutional Constitutional: Denies fatigue, fever(s), poor appetite, weight gain or weight loss Gastrointestinal Gastrointestinal: Denies belching, bloating, change in bowel habits, change in stool character, chewing difficulty, coffee ground emesis, constipation, cramping, diarrhea, dyspepsia, dysphagia, early satiety, excessive flatus, fecal incontinence, heartburn, hematemesis, hematochezia, hemorrhoids, loose stools, melena, nausea, odynophagia, rectal bleeding, tenesmus, vomiting or weight changes Vital Signs Vital Signs Vital Signs: 10/17/24 11:32 10/17/24 11:32 Temperature 98.2 F Temperature Source Temporal Pulse Rate 118 H Respiratory Rate 20 H Respiratory Pattern Normal Blood Pressure 125/80 H Blood Pressure Mean 95 Blood Pressure Source Monitor Blood Pressure Position Semi-Fowlers Blood Pressure Location Right Arm Pulse Ox 97 Oxygen Delivery Method Room Air Weight Weight: 129 lb 6.581 oz Body Mass Index (BMI) 22.9 Physical Exam Const alert, oriented x3, no apparent distress and healthy appearing General Appearance: cooperative GI normal to inspection, nondistended, normoactive bowel sounds, soft to palpation, non-tender and non-distended Percussion: normal to percussion Rectal Exam: deferred Assessment & Plan Assessment/Plan (1) Gastric dysmotility: PLAN: Assessment and Plan Assessment and Plan (1) GERD (gastroesophageal reflux disease): Status: Acute Qualifiers: Esophagitis presence: esophagitis presence not specified Qualified Code(s): K21.9 - Gastro-esophageal reflux disease without esophagitis Plan: This is a 53 yo female with hx of gastroparesis, pyloric stenosis, constipation and fecal incontinence. In July 2024 pt had repeat GES showing slowed emptying at 100 minutes which improved from 199 minutes from the month before. EGD showing stenosis at the pylorus and gastritis. Pt continues with severe symptoms of nausea and upper abd pain daily. She is taking metoclopramide TID and scopolamine patch. I spoke with Dr. Singh regarding the plan of care for this pt and his recommendation was for placement of a stent. I discussed this with her and she is agreeable. She will also have a colonoscopy as she has a family hx of colon cancer and last one was many years ago. SHe is having intermittent fecal incontinence and constipation. Because of her gastroparesis, bloating and constipation and the fact that she has a baseline tremor she cannot tolerate her metoclopramide and increasing doses of metoclopramide. Therefore she will undergo endoscopic stent placement on a temporary basis because of refractory pyloric stenosis in the setting of severe gastroparesis. She was explained that his risk including not withstanding bleeding, infection, sepsis, perforated bowel emergency or to . She will have an ASA of 3. -EGD with stent placement -Colonoscopy -f/u after procedure (2) Gastric dysmotility: Status: Acute Medications: New dicyclomine 20 mg PO BID 60 tabs 2RF Discontinued dicyclomine Discontinued Reason: Duplicate Order 10 mg PO BID 60 caps 2RF
--- NOTE | 2024-10-17 12:00 | COLBX_PTH ---
PATIENT: XUAN IRVING LOC: EN U#:[id number] AGE/SX: 54/F ROOM: RE10/17/[address]: Dr. Johny Singh DO : 1970 BED: DIS: 10/17/2024 SPEC #: [id number] RECD: 10/17/24 18:07 STATUS: DIONISIO REEllie #: [id number] SANDIE: 10/17/24 12:[address]: Johny Singh DEPT: SURGICAL PATHOLOGY RECD BY: Sandi Fink ENTERED: 10/18/24 11:04 SP TYPE: COLON BX OTHR DR: Dr. Julia Diaz MD Tissues: A - Ileum, NOS B - COLON BIOPSY C - Sigmoid colon biopsy D - Rectum, NOS Procedures: Surgery Specimen Level IV HEADER OPERATION: Colonoscopy with biopsy, EGD, Duodenal stent placement secure PRE-OP DIAGNOSIS: GERD, gastric dysmotility TISSUE SUBMITTED: A- Terminal ileum biopsy, B- Random colon biopsy, C- Sigmoid colon biopsy, D- Rectal biopsy MICROSCOPIC DIAGNOSIS A. Terminal ileum, biopsy: * No specific pathologic change. B. Colon, random, biopsy: * No specific pathologic change. * The features of microscopic colitis are not observed. C. Colon, sigmoid, biopsy: * Superficial mucosal necrosis with acute inflammation, suggestive of ischemia - see note. * Note: The histologic differential diagnosis includes medication injury, infection, and so-called solitary rectal ulcer syndrome. Recommend clinical/endoscopic correlation. D. Rectum, biopsy: * Superficial mucosal necrosis with acute inflammation, suggestive of ischemia - see note. * Note: The histologic differential diagnosis includes medication injury, infection, and so-called solitary rectal ulcer syndrome. Recommend clinical/endoscopic correlation. MICROSCOPIC DESCRIPTION Slides are reviewed. GROSS DESCRIPTION A. Received in fixative is one container labeled with the patient's name and designated Terminal ileum biopsy. The specimen consists of two irregular fragments of light blanchard soft tissue that in aggregate measure 0.8 x 0.2 x 0.2 cm. The specimen is totally submitted in one cassette. B. Received in fixative is one container labeled with the patient's name and designated Random colon biopsy. The specimen consists of multiple irregular fragments of light blanchard soft tissue that in aggregate measure 1.5 x 0.2 x 0.2 cm. The specimen is totally submitted in one cassette. C. Received in fixative is one container labeled with the patient's name and designated Sigmoid colon biopsy. The specimen consists of multiple irregular fragments of light blanchard soft tissue that in aggregate measure 1.2 x 0.2 x 0.2 cm. The specimen is totally submitted in one cassette. D. Received in fixative is one container labeled with the patient's name and designated Rectal biopsy. The specimen consists of two irregular fragments of light blanchard soft tissue that in aggregate measure 0.6 x 0.2 x 0.2 cm. The specimen is totally submitted in one cassette. SARAH/ 10/18/2024 TC: CPT:98190z6
[2024-10-17] MEDS: 0.9% Normal Saline (500mL Bag) 500 ML 999 ML IV (12:09)
--- NOTE | 2024-10-17 12:20 | RAD_ITS ---
PROCEDURE: ERCP BILIARY/PANCREAS REASON FOR EXAM: ERCP. Fluoroscopy. TECHNIQUE: The product scientist performed an ERCP. Fluoroscopic services provided. COMPARISON: None. FINDINGS: Fluoroscopic services for ERCP. A stent is seen within the stomach. And distal esophagus. RAD/ERCP Biliary/Pancreas IMPRESSION: Fluoroscopic services provided for ERCP. Reading Location: [facility]
--- NOTE | 2024-10-17 13:06 | OP.EGD_ITS ---
Patient Name: Sonja Yeung Procedure Date: 10/17/2024 12:08 PM Date of : 1970 Age: 54 Procedure: Upper GI endoscopy Indications: Abnormal CT of the GI tract, Gastroparesis, Abdominal distention, Functional Dyspepsia, Malnutrition, Nausea with vomiting Providers: Johny Singh DO Referring MD: Julia Diaz Medicines: Monitored Anesthesia Care Patient Profile: This is a 54 year old female. Refer to note in patient chart for documentation of history and physical. Patient has symptoms of chronic abdominal cramping, chronic abdominal distention, chronic epigastric abdominal pain, chronic nausea and chronic vomiting. Complications: No immediate complications. Procedure: Pre-Anesthesia Assessment: - Prior to the procedure, a History and Physical was performed, and patient medications and allergies were reviewed. The patient is competent. The risks and benefits of the procedure and the sedation options and risks were discussed with the patient. All questions were answered and informed consent was obtained. Patient identification and proposed procedure were verified by the physician in the pre-procedure area. Mental Status Examination: alert and oriented. Airway Examination: normal oropharyngeal airway and neck mobility. Respiratory Examination: clear to auscultation. CV Examination: normal. Prophylactic Antibiotics: The patient does not require prophylactic antibiotics. Prior Anticoagulants: The patient has taken no anticoagulant or antiplatelet agents except for NSAID medication. ASA Grade Assessment: II - A patient with mild systemic disease. After reviewing the risks and benefits, the patient was deemed in satisfactory condition to undergo the procedure. The anesthesia plan was to use monitored anesthesia care (MAC). Immediately prior to administration of medications, the patient was re-assessed for adequacy to receive sedatives. The heart rate, respiratory rate, oxygen saturations, blood pressure, adequacy of pulmonary ventilation, and response to care were monitored throughout the procedure. The physical status of the patient was re-assessed after the procedure. After obtaining informed consent, the endoscope was passed under direct vision. Throughout the procedure, the patient's blood pressure, pulse, and oxygen saturations were monitored continuously. The Endoscope was introduced through the mouth, and advanced to the second part of duodenum. The upper GI endoscopy was accomplished without difficulty. The patient tolerated the procedure well. Scope In: 12:27:46 PM Scope Out: 12:39:42 PM Total Procedure Duration Time 0 hours 11 minutes 56 seconds Findings: Non-severe esophagitis with no bleeding was found 35 to 39 cm from the incisors. Patchy mild inflammation characterized by erythema was found in the gastric body. A benign-appearing, intrinsic severe stenosis was found in the prepyloric region of the stomach and at the pylorus. This was traversed. This was stented with a 22 mm x 6 cm WallFlex stent under fluoroscopic guidance. Estimated blood loss was minimal. No gross lesions were noted in the second portion of the duodenum. Impression: - Non-severe reflux esophagitis with no bleeding. - Gastritis. - Gastric stenosis was found in the prepyloric region of the stomach and at the pylorus. Prosthesis placed. - No gross lesions in the second portion of the duodenum. - No specimens collected. Recommendation: - Discharge patient to home. - Full liquid diet today. - Continue present medications. Procedure Code(s): --- Professional --- 03003, Esophagogastroduodenoscopy, flexible, transoral; with placement of endoscopic stent (includes pre- and post-dilation and guide wire passage, when performed) 41883, 26, Intraluminal dilation of strictures and/or obstructions (eg, esophagus), radiological supervision and interpretation CPT copyright 2021 [employer]. All rights reserved. The codes documented in this report are preliminary and upon surgical product sales consultant review may be revised to meet current compliance requirements. Johny Singh DO 10/17/2024 1:06:09 PM This report has been signed electronically. Number of Addenda: 0 Note Initiated On: 10/17/2024 12:08 PM
--- NOTE | 2024-10-17 13:06 | OP.CCLET_ITS ---
10/17/2024 Julia Diaz [address] [place] [address] Re : Upper GI endoscopy procedure for Sonja Yeung Dear Dr. Diaz This procedure was performed on Thursday, October 17, 2024. My impressions and recommendations are as follows: Impressions : - Non-severe reflux esophagitis with no bleeding. - Gastritis. - Gastric stenosis was found in the prepyloric region of the stomach and at the pylorus. Prosthesis placed. - No gross lesions in the second portion of the duodenum. - No specimens collected. Recommendations : - Discharge patient to home. - Full liquid diet today. - Continue present medications. My findings are described in the full procedure note, which is enclosed. If I can be of further assistance, please feel free to contact me at . Sincerely, Johny Singh, 10/17/2024 1:06:09 PM This report has been signed electronically.
--- NOTE | 2024-10-17 13:11 | OP.COLON_ITS ---
Patient Name: Sonja Yeung Procedure Date: 10/17/2024 12:45 PM Date of : 1970 Age: 54 Procedure: Colonoscopy Indications: Clinically significant diarrhea of unexplained origin Providers: Johny Singh DO Referring MD: Julia Diaz Medicines: Monitored Anesthesia Care Patient Profile: This is a 54 year old female. Refer to note in patient chart for documentation of history and physical. Patient has symptoms of chronic abdominal cramping, chronic abdominal distention, chronic epigastric abdominal pain, chronic nausea and chronic vomiting. Last Colonoscopy: 5 years ago. Complications: No immediate complications. Procedure: Pre-Anesthesia Assessment: - Prior to the procedure, a History and Physical was performed, and patient medications and allergies were reviewed. The patient is competent. The risks and benefits of the procedure and the sedation options and risks were discussed with the patient. All questions were answered and informed consent was obtained. Patient identification and proposed procedure were verified by the physician in the pre-procedure area. Mental Status Examination: alert and oriented. Airway Examination: normal oropharyngeal airway and neck mobility. Respiratory Examination: clear to auscultation. CV Examination: normal. Prophylactic Antibiotics: The patient does not require prophylactic antibiotics. Prior Anticoagulants: The patient has taken no anticoagulant or antiplatelet agents except for NSAID medication. ASA Grade Assessment: II - A patient with mild systemic disease. After reviewing the risks and benefits, the patient was deemed in satisfactory condition to undergo the procedure. The anesthesia plan was to use monitored anesthesia care (MAC). Immediately prior to administration of medications, the patient was re-assessed for adequacy to receive sedatives. The heart rate, respiratory rate, oxygen saturations, blood pressure, adequacy of pulmonary ventilation, and response to care were monitored throughout the procedure. The physical status of the patient was re-assessed after the procedure. After I obtained informed consent, the scope was passed under direct vision. Throughout the procedure, the patient's blood pressure, pulse, and oxygen saturations were monitored continuously. The Colonoscope was introduced through the anus and advanced to the cecum, identified by appendiceal orifice and ileocecal valve. The colonoscopy was performed without difficulty. The patient tolerated the procedure well. The quality of the bowel preparation was adequate. The terminal ileum, ileocecal valve, appendiceal orifice, and rectum were photographed. Scope In: 12:45:53 PM Scope Withdrawal Time 0 hours 7 minutes 48 seconds Scope Out: 12:58:31 PM Total Procedure Duration Time 0 hours 12 minutes 38 seconds Findings: The perianal and digital rectal examinations were normal. Multiple small-mouthed diverticula were found in the recto-sigmoid colon, sigmoid colon, descending colon and hepatic flexure. Patchy moderate inflammation characterized by congestion (edema), erythema and linear erosions was found in the rectum, in the recto-sigmoid colon, in the sigmoid colon, in the descending colon, at the hepatic flexure, in the ascending colon and in the cecum. Biopsies were taken with a cold forceps for histology. Verification of patient identification for the specimen was done. Estimated blood loss was minimal. Localized mild inflammation characterized by congestion (edema) was found in the terminal ileum. Biopsies were taken with a cold forceps for histology. Verification of patient identification for the specimen was done. Estimated blood loss was minimal. Impression: - Diverticulosis in the recto-sigmoid colon, in the sigmoid colon, in the descending colon and at the hepatic flexure. - Patchy moderate inflammation was found in the rectum, in the recto-sigmoid colon, in the sigmoid colon, in the descending colon, at the hepatic flexure, in the ascending colon and in the cecum secondary to colitis. Biopsied. - Mild inflammation was found in the ileum secondary to ileitis. Biopsied. Recommendation: - Discharge patient to home. - Resume previous diet. - Continue present medications. - Await pathology results. - Repeat colonoscopy in 5 years for surveillance. Procedure Code(s): --- Professional --- 86538, Colonoscopy, flexible; with biopsy, single or multiple CPT copyright 2021 [employer]. All rights reserved. The codes documented in this report are preliminary and upon coldfusion review may be revised to meet current compliance requirements. Johny Singh DO 10/17/2024 1:10:55 PM This report has been signed electronically. Number of Addenda: 0 Note Initiated On: 10/17/2024 12:45 PM
--- NOTE | 2024-10-17 13:11 | OP.CCLET_ITS ---
10/17/2024 Julia Diaz [address] [place] [address] Re : Colonoscopy procedure for Sonja Yeung Dear Dr. Diaz This procedure was performed on Thursday, October 17, 2024. My impressions and recommendations are as follows: Impressions : - Diverticulosis in the recto-sigmoid colon, in the sigmoid colon, in the descending colon and at the hepatic flexure. - Patchy moderate inflammation was found in the rectum, in the recto-sigmoid colon, in the sigmoid colon, in the descending colon, at the hepatic flexure, in the ascending colon and in the cecum secondary to colitis. Biopsied. - Mild inflammation was found in the ileum secondary to ileitis. Biopsied. Recommendations : - Discharge patient to home. - Resume previous diet. - Continue present medications. - Await pathology results. - Repeat colonoscopy in 5 years for surveillance. My findings are described in the full procedure note, which is enclosed. If I can be of further assistance, please feel free to contact me at . Sincerely, Johny Singh, 10/17/2024 1:10:55 PM This report has been signed electronically.
[2024-10-17] MEDS: Morphine 4 MG/ML Syringe IV (13:16)
--- NOTE | 2024-10-17 13:18 | PCM.POST.ANE ---
Anesthesia: Postop Eval I Current Vital Signs Temperature: 98.6 F Pulse Rate: 94 Blood Pressure: 128/93 Respiratory Rate: 18 Pulse Ox: 100 Oxygen Delivery Method: Room Air Assessment Airway patent: Yes Spontaneous unlabored respirations: Yes Mental status: Awake nausea: No Vomiting: No Anesthesia Complication: No Fluid Hydration Crystalloid volume administer (ml): 400 Total IV fluid infused: 400 Progress Note Anesthesia document: Postop Eval 1 completed: Yes
[2024-10-17] MEDS: proCHLORPERazine 10 MG/2 ML Vial IV (13:21)
[2024-10-17] MEDS: Morphine 4 MG/ML Syringe 6 MG IV (13:35)
--- NOTE | 2024-10-17 13:36 | PCM.POSTANE2 ---
Anesthesia Postop Eval I Sum Postop Eval Completion status Anesthesia document: Postop Eval 1 completed: Yes Anesthesia Postop Eval I Summary Anesthesia Postop Eval I Summary: Anesthesia Postop Eval I: Assessment Summary Airway patent Yes 10/17/24 13:18 [email or web address] Spontaneous unlabored Yes 10/17/24 13:18 [email or web address] respirations Mental status Awake 10/17/24 13:18 [email or web address] nausea No 10/17/24 13:18 [email or web address] Vomiting No 10/17/24 13:18 [email or web address] Anesthesia Postop Eval I: Fluid Summary Crystalloid volume administer 400 10/17/24 13:18 [email or web address] (ml) Colloids volume administered ( ml) Blood Product volume administered (ml) Total IV fluid infused 400 10/17/24 13:18 [email or web address] Anesthesia Postop Eval I: Summary Notes Anesthesia Complication No 10/17/24 13:18 [email or web address] Anesthesia Complication Comment: Post-operative progress note Anesthesia: Postop Eval II Evaluation Mental status: Awake Pain Level: 0 nausea: No Vomiting: No
[2024-10-17] MEDS: proMETHazine 25 MG/ML Syringe 12.5 MG IM (14:02)
== END 2024-10-17 14:40 | disposition home or self-care (01) ==
LOC: EN 11:07 → AC 11:12
PROVIDERS: PCP Internal Medicine; Referring Provider Internal Medicine; Visit Provider Internal Medicine Gastroenterology
PROC: 0DJD8ZZ Inspection of Lower Intestinal Tract, Via Natural or Artificial Opening Endoscopic (ICD-10-PCS; CPT 45378; principal; 2024-10-17 11:55)
DX: K55.049 Acute infarction of large intestine, extent unspecified (principal); E11.43 Type 2 diabetes mellitus with diabetic autonomic (poly)neuropathy; K52.9 Noninfective gastroenteritis and colitis, unspecified; K31.84 Gastroparesis; K57.30 Diverticulosis of large intestine without perforation or abscess without bleeding; K21.00 Gastro-esophageal reflux disease with esophagitis, without bleeding; E46 Unspecified protein-calorie malnutrition; K29.70 Gastritis, unspecified, without bleeding; Z87.891 Personal history of nicotine dependence; J45.909 Unspecified asthma, uncomplicated; Z79.899 Other long term (current) drug therapy; K31.89 Other diseases of stomach and duodenum
CPT/HCPCS: 45380; 43266; 74330; 76000; 88305; A4216; J2405

== ENCOUNTER → 2025-02-01 | Outpatient (CLI) | payer BC, SELFPAY ==
--- NOTE | 2025-02-01 12:25 | NM_ITS ---
PROCEDURE: GASTRIC EMPTYING STUDY 02/01/2025 REASON FOR EXAM: GASTROPARESIS History of pyloric center stent placement. COMPARISON: Prior study dated July 25, 2024. TECHNIQUE: The patient ingested a standard meal of oatmeal and sulfur colloid and water. Total time taken to ingest the meal was minutes. There was no vomiting postprandially. Anterior and posterior planar images of the upper abdomen were obtained for 1 minute immediately following the meal at 1h, 2h and 4h if more than 10% of the activity persisted within the stomach. Regions of interest were drawn, and a geometric mean was used to calculate a [id number]. RADIOPHARMACEUTICAL: Sulfur colloid DOSE 1mCi FINDINGS: Percent activity remaining in stomach: 1 hour 55 % (normal 37-90%) NM/Gastric Emptying Study IMPRESSION: Normal gastric emptying examination. Reading Location: [place] [address]
== END | disposition home or self-care (01) ==
LOC: NM 12:24
PROVIDERS: PCP Internal Medicine; Referring Provider Internal Medicine Gastroenterology; Visit Provider Internal Medicine Gastroenterology
DX: K31.84 Gastroparesis (principal)
CPT/HCPCS: 78264; A9541

== ENCOUNTER 2025-04-26 14:55 | Emergency (ER) | payer BC, SELFPAY ==
[2025-04-26 14:55] VITALS: BP 139/110; PULSE 52; RESP 18; TEMP 36.6; O2SAT 92; BMI 27.1
--- NOTE | 2025-04-26 15:12 | CT_ITS ---
PROCEDURE: CTA CHEST W/WO CONTRAST 04/26/2025 REASON FOR EXAM: RULE OUT DISSECTION TECHNIQUE: Procedure Code: [id number] Modality: CT Procedure: CTA CHEST W/WO CONTRAST Multiplanar Sagittal and Coronal images were obtained. 3D post processing was performed. CONTRAST: Isovue 370 VOLUME: 85 mL One or more dose reduction techniques were used (e.g., Automated exposure control, adjustment of the mA and/or kV according to patient size, use of iterative reconstruction technique). RADIATION DOSE SUMMARY: DLP: 175.35 mGycm COMPARISON: None available. FINDINGS: THORACIC AORTA: Normal in course and caliber. No aneurysm or dissection. No significant atherosclerotic disease. 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 HEART: Normal in size. No pericardial effusion. Mild coronary artery calcification. PULMONARY VESSELS: Normal in caliber. No filling defects suspicious for pulmonary arterial emboli. MEDIASTINUM: Unremarkable. No mass or lymphadenopathy. LUNGS/PLEURA: Clear. No airspace consolidation or findings of pulmonary edema. No pneumothorax or pleural effusions. The central airways are patent. UPPER ABDOMEN: Small hiatal hernia. Gastroduodenal stent in place. Status post cholecystectomy. BONES: No significant abnormality. CT/CTA Chest W/WO Contrast IMPRESSION: No acute findings. No thoracic aortic aneurysm or dissection. Reading Location: [facility]
--- NOTE | 2025-04-26 15:13 | RAD_ITS ---
PROCEDURE: CHEST PA AND LATERAL 04/26/2025 REASON FOR EXAM: CHEST PAIN TECHNIQUE: Procedure Code: RADCXR Modality: DX Procedure: CHEST PA AND LATERAL COMPARISON: 02/13/2020 FINDINGS: Lungs/Pleura: Clear. No pneumothorax or pleural effusion. Heart/Mediastinum: Within normal limits. No vascular congestion. Bones/Soft tissues: Gastroduodenal stent and surgical clips in the right upper abdomen. RAD/Chest PA and Lateral IMPRESSION: No acute cardiopulmonary disease. Reading Location: [facility]
--- NOTE | 2025-04-26 15:19 | EDS_ITS ---
HPI History of Present Illness Chief Complaint: Chest Pain Narrative Narrative: Chief complaint and HPI: 54-year-old female with past medical history of gastroparesis, duodenal/pyloric stenosis with stent, GERD, HLD presents for evaluation of midsternal chest pain. Patient states for the past 2 days she has been having episodic chest pain which she describes as squeezing. States it radiates into her right shoulder and into her back. Nothing exacerbates the pain such as movement or exertion. She denies any fever, chills, shortness of breath, abdominal pain, nausea, vomiting. Denies tobacco abuse. No history of CAD but extensive heart history in father. Denies any bilateral lower extremity swelling or pain. Denies any recent travel. Review of systems: See HPI Medications: As listed on the chart Allergies: As listed on the chart PFSH: Per chart Vital signs: As listed on the chart. Reviewed. Physical exam: Gen: A&O x3, NAD Head: Normocephalic, atraumatic Eyes: No sclera icterus, conjunctiva clear, PERRL ENT: Moist mucous membranes Neck: Trachea midline, No JVD CV: RRR, no murmurs, no peripheral edema, chest wall nontender to palpation Resp: Lungs CTA BL, no w/r/c GI: Abd soft, non-distended, non-tender, no r/r/g Musc: Full ROM, no deformity, no midline spinal tenderness, no bony step-offs, no significant paraspinal tenderness, DP/PT/radial pulses+2/4 Skin: Warm, dry Neuro: Alert, oriented, grossly intact, sensation intact Psych: Cooperative, appropriate mood and affect [facility] Medical History Wears glasses Post-menopausal Alcohol use Kidney stones Anemia Injury of head and neck Difficulty swallowing History of diverticulitis Heartburn Former smoker Asthma Shortness of breath on exertion Diarrhea LUQ pain Diabetes Anxiety Home Medications ?Medication ?Instructions ?Recorded ?Last Taken ?Type hydroxyzine HCl 25 mg tablet 25 mg PO TID PRN anxiety #90 tabs 07/22/24 10/16/24 Rx pantoprazole 20 mg tablet,delayed 20 mg PO QDAY #60 ta bs 09/23/24 10/16/24 Rx release buspirone 10 mg tablet 10 mg PO TID #270 tabs 11/25 Unknown Rx venlafaxine 75 mg tablet 75 mg PO BID #180 tabs 11/25 Unknown Rx dicyclomine 20 mg tablet 20 mg PO BID #60 tabs Unknown Rx mirtazapine 30 mg tablet 30 mg PO QHS #90 tabs Unknown Rx promethazine 12.5 mg tablet 12.5 mg PO BID PRN nausea and 03/09/25 Unknown Rx vomiting #30 tabs famotidine 20 mg tablet (Pepcid) 20 mg PO QHS #90 tabs 04/06/25 Unknown Rx propranolol 10 mg tablet 10 mg PO TID PRN anxiety #90 tabs 04/11/25 Unknown Rx cyclobenzaprine 5 mg tablet 5 mg PO TID PRN muscle spa sm 3 04/26/25 Unknown Rx days #9 tabs Allergy/AdvReac Type Severity Reaction Status Date / Time iron (From Venofer) Allergy Severe Hives Verified 04/26/25 14:57 latex Allergy Rash Verified 04/26/25 14:57 Family History Father Cancer skin cancer Heart disease Diabetes Mother Diabetes Grandfather Cancer Grandmother Cancer colon Aunt Cancer endometrial Brother Polycystic kidney Surgical History History of cystoscopy History of esophagogastroduodenoscopy (EGD) History of suburethral sling procedure H/O: hysterectomy H/O laparoscopy H/O bone graft Bile leak gallbladder tubal ligation delivery delivered Social History (Updated 04/26/25 @ 15:06 by Venus Tolliver) household members: spouse Smoking Status: Former smoker alcohol intake: former details: Sober x 3.5 years substance use type: does not use caffeine: Yes (patient drinks more than 4 caffinated beverages per day) what type of physical activity do you participate in: none seatbelt use: always additional social history: Kayden is her boyfriend and he works at [employer] EXAM Physical Exam Const Vital Signs: 04/26/25 14:55 04/26/25 15:06 04/26/25 16:00 Temperature 98 F Temperature Source Temporal Pulse Rate 52 L 80 Respiratory Rate 18 14 Respiratory Effort Normal Non-Labored Blood Pressure 139/110 H 140/70 H Blood Pressure Mean 119 93 Pulse Ox 92 100 Oxygen Delivery Method Room Air Room Air 04/26/25 17:42 04/26/25 18:00 04/26/25 19:00 Temperature Temperature Source Pulse Rate 81 87 70 Respiratory Rate 17 15 16 Respiratory Effort Blood Pressure 139/79 H 118/88 H Blood Pressure Mean 99 98 Pulse Ox 100 100 98 Oxygen Delivery Method MDM MDM MDM Narrative Medical decision making narrative: 54-year-old female with past medical history of gastroparesis, duodenal/pyloric stenosis with stent, GERD, HLD presents for evaluation of midsternal chest pain. Patient states for the past 2 days she has been having episodic chest pain which she describes as squeezing. States it radiates into her right shoulder and into her back. Nothing exacerbates the pain such as movement or exertion. She denies any fever, chills, shortness of breath, abdominal pain, nausea, vomiting. Differential diagnosis includes but is not limited to GERD, gastritis, pancreatitis, ACS, dissection, electrolyte abnormality, arrhythmia, myofascial spasm. NS bolus, aspirin, Pepcid ordered. Cardiac workup ordered including CT chest to assess for dissection given pain radiates to the back. EKG reviewed see below. CBC without leukocytosis. Patient has baseline anemia of 11.3. Platelets unremarkable. INR unremarkable. D-dimer unremarkable. CMP unremarkable. Troponin x 2 unremarkable. BMP unremarkable. Lipase unremarkable. CTA chest negative for dissection or PE. Patient does have a distal splenic artery thrombosed aneurysm measuring 11 mm. Not endorsing any abdominal pain at this time. Will consult general surgery. I spoke with Dr. Ness who does not believe any acute management is needed however referred me to vascular surgery. We do not have vascular surgery on-call therefore I spoke to [facility] vascular surgery. Patient was discussed with the surgeon on- call. No further management needed at this time. Follow-up outpatient. On reevaluation, patient still endorsing episodic back pain. Concern is for possible myofascial spasm. Her heart score is a 2 which places her in the low risk category, low suspicion for ACS. Toradol and cyclobenzaprine ordered. On reevaluation, patient's symptoms have resolved. Patient stable to discharge home. Follow-up with PCP. Patient updated with all results and confirmed understanding of plan. EKG: Interpreted by me/EM physician: EKG shows normal sinus rhythm without acute ischemic changes. Heart rate 92 Diagnostic: Interpreted by me/EM physician: Chest x-ray without pneumonia, effusion, cardiomegaly, pneumothorax. Radiology in agreement. Impression: 1. Episodic chest pain 2. Episodic back pain 3. 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 Lab Data Labs: Laboratory Results - last 24 hr 04/26/25 04/26/25 15:43 17:40 WBC 7.4 RBC 3.76 L Hgb 11.3 L Hct 33.7 L MCV 89.6 MCH 30.1 MCHC 33.5 RDW Std Deviation 44.5 H RDW Coeff of Leanne 13.6 Plt Count 202 MPV 8.5 Immature Gran % (Auto) 0.300 Neut % (Auto) 53.8 Lymph % (Auto) 35.9 [place] % (Auto) 6.8 Eos % (Auto) 2.4 Baso % (Auto) 0.8 Absolute Neuts (auto) 4.0 Absolute Lymphs (auto) 2.64 Nucleated RBC % 0 PT 12.0 INR 0.9 APTT 22.6 L D-Dimer Quant (PE/DVT) < 0.27 L Sodium 140 Potassium 3.4 Chloride 105 Carbon Dioxide 23.6 Anion Gap 11 BUN 10 Creatinine 0.85 Estim Creat Clear Calc 72.36 Est GFR (MDRD) Non-Af 82 BUN/Creatinine Ratio 11.6 Glucose 96 Calcium 9.0 Total Bilirubin 0.22 AST 21 ALT 9 Alkaline Phosphatase 80 Troponin T High Sens < 6 Troponin T Hi Sens 2 Hr < 6 NT pro BNP II 149 Total Protein 7.2 Albumin 4.2 Globulin 2.9 Albumin/Globulin Ratio 1.4 Lipase 35 Radiography Diagnostic Testing: Clinical Impression(s) from Imaging Studies Chest CTA 04/26/25 15:12 IMPRESSION: No acute findings. No thoracic aortic aneurysm or dissection. Reading Location: [facility] Chest X-Ray 04/26/25 15:13 IMPRESSION: No acute cardiopulmonary disease. Reading Location: [facility] Discharge Plan Triage Chief Complaint: Chest Pain ED Provider: Marvel Orellana Dx/Rx/DC Orders Clinical Impression: Chest pain Instructions: ED Chest Pain [facility] Prescriptions: New cyclobenzaprine 5 mg tablet 5 mg PO TID PRN (Reason: muscle spasm) 3 Days Qty: 9 0RF No Action hydroxyzine HCl 25 mg tablet 25 mg PO TID PRN (Reason: anxiety) Qty: 90 3RF buspirone 10 mg tablet 10 mg PO TID Qty: 270 1RF venlafaxine 75 mg tablet 75 mg PO BID Qty: 180 1RF mirtazapine 30 mg tablet 30 mg PO QHS Qty: 90 1RF pantoprazole 20 mg tablet,delayed release (DR/EC) 20 mg PO QDAY Qty: 60 2RF dicyclomine 20 mg tablet 20 mg PO BID Qty: 60 2RF promethazine 12.5 mg tablet 12.5 mg PO BID PRN (Reason: nausea and vomiting) Qty: 30 2RF famotidine [Pepcid] 20 mg tablet 20 mg PO QHS Qty: 90 3RF propranolol 10 mg tablet 10 mg PO TID PRN (Reason: anxiety) Qty: 90 2RF Primary Care Provider: Julia Diaz Referrals: Julia Diaz MD [Primary Care Provider] - 3-5 Days Activity Restrictions/Additional Instructions: He received Toradol here in the emergency department, no ibuprofen for 8 hours. He received muscle relaxer here in the emergency department, no muscle relaxer for 8 hours. Muscle relaxers can cause confusion, falls, weakness, fatigue. Do not drive or operate heavy machinery while taking these. Return back to the ED if symptoms change or worsen. Follow-up with your primary care physician. CTA chest showed a distal splenic artery thrombosed aneurysm measuring 11 mm. She needs to follow-up with this outpatient with Print Language: Bolivian Disposition Disposition: Home, Self Care
[2025-04-26] MEDS: 0.9% Normal Saline (1000mL) 1,000 ML 999 ML IV (15:43)
[2025-04-26] MEDS: Famotidine 200 MG/20 ML MDV 20 MG in 0.9% Normal Saline (Pres. free 8 ML 300 MG IV (15:44)
[2025-04-26 15:53] LABS: Hematocrit 33.7 % (37-47); Hemoglobin 11.3 g/dL (12.0-15.0); Immature Granulocytes Count 0.020 X10^3/uL (0.0-0.0); Mean Corp Hgb Conc 33.5 g/dL (32-36); Mean Corpuscular Volume 89.6 fL (81-99); Mean Platelet Vol. 8.5 fl (6.2-12.0); NRBC Flagged by Analyzer 0 % (0-5); Platelet Count 202 K/mm3 (150-450); RBC Distribution Width CV 13.6 % (11.6-14.6); RBC Distribution Width SD 44.5 fl (35.1-43.9); Red Blood Count 3.76 M/mm3 (4.2-5.4); White Blood Count 7.4 K/mm3 (4.4-11.0)
[2025-04-26 16:00] VITALS: BP 140/70; PULSE 80; RESP 14; O2SAT 100
[2025-04-26 16:19] LABS: AST(SGOT) 21 U/L (<=31); Alanine Aminotransfer ALT/SGPT 9 U/L (<=34); Albumin, Serum 4.2 g/dL (3.5-5.0); Alkaline Phosphatase 80 U/L (35-104); Anion Gap 11 (5-15); BUN 10 mg/dL (4-19); BUN/Creat Ratio 11.6 RATIO (10-20); Calcium,Total 9.0 mg/dL (7.6-11.0); Carbon Dioxide 23.6 mmol/L (21.0-32.0); Chloride 105 mmol/L (98-108); Estimated Creatinine Clearance 72.36 ml/min (50-250); Globulin 2.9 g/dL (2.2-4.2); Glucose 96 mg/dL (70-99); Lipase 35 U/L (13-75); Potassium 3.4 mmol/L (3.3-5.1); Pro- Brain NATRIURETIC PEPTIDE 149 pg/mL (<=900); Troponin T High Sensitivity < 6 ng/L (<=14)
[2025-04-26 16:29] LABS: Prothrombin Time (Protime)PT. 12.0 SECONDS (11.7-14.9)
[2025-04-26 16:30] LABS: Partial Thromboplast Time 22.6 Seconds (24.1-36.2)
[2025-04-26 16:37] LABS: D-Dimer Quantitative (DVT/PE) < 0.27 FEU/ug/m (0.27-0.49)
[2025-04-26 17:42] VITALS: PULSE 81; RESP 17; O2SAT 100
[2025-04-26 18:00] VITALS: BP 139/79; PULSE 87; RESP 15; O2SAT 100
[2025-04-26 18:12] LABS: Troponin T High Sens 2 HR < 6 ng/L (<=14)
[2025-04-26 19:00] VITALS: BP 118/88; PULSE 70; RESP 16; O2SAT 98
[2025-04-26 20:43] VITALS: BP 121/77; PULSE 89; RESP 18; TEMP 36.7; O2SAT 98
== END 2025-04-26 20:44 | disposition home or self-care (01) ==
PROVIDERS: Emergency Provider Surgery; PCP Internal Medicine; Visit Provider Surgery
DX: R07.9 Chest pain, unspecified (principal); E11.43 Type 2 diabetes mellitus with diabetic autonomic (poly)neuropathy; I72.8 Aneurysm of other specified arteries; Z87.891 Personal history of nicotine dependence; J45.909 Unspecified asthma, uncomplicated; K21.9 Gastro-esophageal reflux disease without esophagitis; M54.9 Dorsalgia, unspecified
CPT/HCPCS: 71046; 71275; 80053; 83690; 83880; 84484; 85025; 85379; 85610; 85730; 93005; 96365; 96375; 99285; Q9967; A4216

== ENCOUNTER 2025-07-18 09:24 | Emergency (ER) | payer BC, SELFPAY ==
[2025-07-18 09:24] VITALS: BP 172/90; PULSE 119; PULSE 126; RESP 20; TEMP 36.1; O2SAT 98; BMI 24.2
--- NOTE | 2025-07-18 09:43 | EX.ED.DYSGE1 ---
HPI History of Present Illness Chief Complaint: Flank Pain Narrative Narrative: Chief complaint and HPI: 54-year-old female with past medical history of gastroparesis, duodenal/pyloric stenosis with stent that was recently removed on 07/11, GERD, HLD presents for evaluation of right flank pain. Patient states that she has had this pain since removal of the stent. She states originally she thought it was secondary to her surgery but now she is concerned that it is a kidney stone. She has not followed up with her surgeon for the pain. She denies any fever, shortness of breath, chest pain, change in bowel movements. She does endorse some intermittent dry heaves and decreased urination. 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 She has yet to follow-up with anybody for this. She denies any left-sided pain. Review of systems: See HPI Medications: As listed on the chart Allergies: As listed on the chart PFSH: Per chart Vital signs: As listed on the chart. Reviewed. Physical exam: Gen: A&O x3, NAD Head: Normocephalic, atraumatic Eyes: No sclera icterus, conjunctiva clear ENT: Moist mucous membranes CV: Tachycardic, regular rhythm, no murmurs Resp: Lungs CTA BL, no w/r/c GI: Abd soft, non-distended, mildly tender to palpation in the right flank, surgical incisions healing well with surrounding ecchymosis-no infection, no r/r/g Musc: Full ROM, no deformity Skin: Warm, dry Neuro: Alert, oriented, grossly intact, sensation intact Psych: Cooperative, appropriate mood and affect [facility] Medical History Wears glasses Post-menopausal Alcohol use Kidney stones Anemia Injury of head and neck Difficulty swallowing History of diverticulitis Heartburn Former smoker Asthma Shortness of breath on exertion Diarrhea LUQ pain Diabetes Anxiety Home Medications ?Medication ?Instructions ?Recorded ?Last Taken ?Type hydroxyzine HCl 25 mg tablet 25 mg PO TID PRN anxiety #90 tabs 07/22/24 10/16/24 Rx dicyclomine 20 mg tablet 20 mg PO BID #60 tabs 01/12/25 Unknown Rx mirtazapine 30 mg tablet 30 mg PO QHS #90 tabs 03/02/25 Unknown Rx famotidine 20 mg tablet (Pepcid) 20 mg PO QHS #90 tabs 04/06/25 Unknown Rx buspirone 10 mg tablet 10 mg PO TID #270 tabs 05/16/25 Unknown Rx linaclotide 145 mcg capsule 145 mcg PO QAM #30 caps 05/26/25 Unknown Rx (Linzess) pantoprazole 20 mg tablet,delayed 20 mg PO QDAY #60 tabs 05/26/25 Unknown Rx release promethazine 12.5 mg tablet 12.5 mg PO BID PRN nausea and 05/26/25 Unknown Rx vomiting #30 tabs venlafaxine 75 mg tablet 75 mg PO BID #180 tabs 05/31/25 Unknown Rx propranolol 20 mg tablet 20 mg PO TID PRN anxiety #60 tabs 07/04/25 Unknown Rx Allergy/AdvReac Type Severity Reaction Status Date / Time iron (From Venofer) Allergy Severe Hives Verified 07/18/25 09:27 latex Allergy Rash Verified 07/18/25 09:27 Family History Father Cancer skin cancer Heart disease Diabetes Mother Diabetes Grandfather Cancer Grandmother Cancer colon Aunt Cancer endometrial Brother Polycystic kidney Surgical History History of cystoscopy History of esophagogastroduodenoscopy (EGD) History of suburethral sling procedure H/O: hysterectomy H/O laparoscopy H/O bone graft Bile leak gallbladder tubal ligation delivery delivered Social History (Updated 04/26/25 @ 15:06 by Venus Tolliver) household members: spouse Smoking Status: Former smoker alcohol intake: former details: Sober x 3.5 years substance use type: does not use caffeine: Yes (patient drinks more than 4 caffinated beverages per day) what type of physical activity do you participate in: none seatbelt use: always additional social history: Kayden is her boyfriend and he works at [employer] EXAM Physical Exam Const Vital Signs: 07/18/25 09:24 07/18/25 09:24 07/18/25 11:24 Temperature 97 F L Temperature Source Temporal Pulse Rate 126 H 119 H 89 Respiratory Rate 20 H 18 Blood Pressure 172/90 H 137/91 H Blood Pressure Mean 117 106 Pulse Ox 98 100 Oxygen Delivery Method Room Air Room Air MDM MDM MDM Narrative Medical decision making narrative: 54-year-old female with past medical history of gastroparesis, duodenal/pyloric stenosis with stent that was recently removed on 07/11, GERD, HLD presents for evaluation of right flank pain. Patient states that she has had this pain since removal of the stent. She states originally she thought it was secondary to her surgery but now she is concerned that it is a kidney stone. Differential diagnosis includes but is not limited to postoperative pain, postoperative complication such as infection/abscess, pancreatitis, colitis, urolithiasis, gastroenteritis, UTI, pyelonephritis. NS bolus, morphine, Zofran ordered for symptoms. Laboratory workup ordered including CT abdomen and pelvis. CBC without leukocytosis or anemia. Platelets unremarkable. CMP unremarkable without JORDYN or transaminitis. Lipase unremarkable. UA negative for UTI. CT abdomen and pelvis shows colonic diverticulosis and diffuse edematous wall thickening of the left and sigmoid colon with mild pericolic fat stranding concerning for acute diverticulitis. Patient is not having any left lower quadrant abdominal pain however this may be an incidental finding of early diverticulitis therefore we will treat with antibiotics. This was discussed with the patient. At this point in time there is no clear etiology to explain her right flank pain. Patient's pain has improved with pain medicine. Her right flank pain may be secondary to her recent stent removal/surgery. Recommend her following up with her surgeon for this pain. Return precautions explained. Patient affirmed understand the plan. First dose of antibiotics given here for possible diverticulitis. Impression: 1. Right flank pain, unclear etiology 2. Recent duodenal/pyloric stent removal 3. He possible early acute diverticulitis Lab Data Labs: Laboratory Results - last 24 hr 07/18/25 07/18/25 09:55 11:40 WBC 7.4 RBC 4.11 L Hgb 12.4 Hct 37.0 MCV 90.0 MCH 30.2 MCHC 33.5 RDW Std Deviation 44.0 H RDW Coeff of Leanne 13.3 Plt Count 201 MPV 8.9 Immature Gran % (Auto) 0.400 Neut % (Auto) 60.3 Lymph % (Auto) 30.2 [place] % (Auto) 5.7 Eos % (Auto) 2.7 Baso % (Auto) 0.7 Absolute Neuts (auto) 4.5 Absolute Lymphs (auto) 2.23 Nucleated RBC % 0 Sodium 139 Potassium 3.5 Chloride 103 Carbon Dioxide 23.2 Anion Gap 13 BUN 7 Creatinine 0.98 Estim Creat Clear Calc 55.55 Est GFR (MDRD) Non-Af 70 BUN/Creatinine Ratio 7.0 L Glucose 111 H Lactic Acid 1.7 Calcium 9.1 Total Bilirubin 0.26 AST 19 ALT 11 Alkaline Phosphatase 80 Total Protein 7.2 Albumin 4.3 Globulin 2.9 Albumin/Globulin Ratio 1.5 Lipase 28 Urine Color Yellow Urine Clarity Clear Urine pH 6.0 Ur Specific Wallace 1.010 Urine Protein Negative Urine Glucose (UA) Normal Urine Ketones Negative Urine Occult Blood 10 H Urine Nitrite Negative Urine Bilirubin Negative Urine Urobilinogen Normal Ur Leukocyte Esterase Negative Urine RBC 0-5 SEEN Urine WBC 0 SEEN Ur Squamous Epith Cells 0-5 SEEN Urine Bacteria 1+ Urine Mucus 0 SEEN Radiography Diagnostic Testing: Clinical Impression(s) from Imaging Studies Abdomen/Pelvis CT 07/18/25 11:13 IMPRESSION: Colonic diverticulosis and diffuse edematous wall thickening of the left and sigmoid colon along with mild pericolic fat stranding concerning for acute diverticulitis. Reading Location: [facility] Discharge Plan Triage Chief Complaint: Flank Pain ED Provider: Marvel Orellana Dx/Rx/DC Orders Prescriptions: No Action hydroxyzine HCl 25 mg tablet 25 mg PO TID PRN (Reason: anxiety) Qty: 90 3RF mirtazapine 30 mg tablet 30 mg PO QHS Qty: 90 1RF Linzess 145 mcg capsule 145 mcg PO QAM Qty: 30 1RF pantoprazole 20 mg tablet,delayed release (DR/EC) 20 mg PO QDAY Qty: 60 2RF promethazine 12.5 mg tablet 12.5 mg PO BID PRN (Reason: nausea and vomiting) Qty: 30 2RF dicyclomine 20 mg tablet 20 mg PO BID Qty: 60 2RF famotidine [Pepcid] 20 mg tablet 20 mg PO QHS Qty: 90 3RF buspirone 10 mg tablet 10 mg PO TID Qty: 270 1RF venlafaxine 75 mg tablet 75 mg PO BID Qty: 180 1RF propranolol 20 mg tablet 20 mg PO TID PRN (Reason: anxiety) Qty: 60 2RF Primary Care Provider: Julia Diaz Referrals: Julia Diaz MD [Primary Care Provider, Internal Medicine] Print Language: Czech
[2025-07-18] MEDS: 0.9% Normal Saline (1000mL) 1,000 ML 999 ML IV (09:53)
[2025-07-18 10:03] LABS: Hematocrit 37.0 % (37-47); Hemoglobin 12.4 g/dL (12.0-15.0); Immature Granulocytes Count 0.030 X10^3/uL (0.0-0.0); Mean Corp Hgb Conc 33.5 g/dL (32-36); Mean Corpuscular Volume 90.0 fL (81-99); Mean Platelet Vol. 8.9 fl (6.2-12.0); NRBC Flagged by Analyzer 0 % (0-5); Platelet Count 201 K/mm3 (150-450); RBC Distribution Width CV 13.3 % (11.6-14.6); RBC Distribution Width SD 44.0 fl (35.1-43.9); Red Blood Count 4.11 M/mm3 (4.2-5.4); White Blood Count 7.4 K/mm3 (4.4-11.0)
[2025-07-18 10:31] LABS: AST(SGOT) 19 U/L (<=31); Alanine Aminotransfer ALT/SGPT 11 U/L (<=34); Albumin, Serum 4.3 g/dL (3.5-5.0); Alkaline Phosphatase 80 U/L (35-104); Anion Gap 13 (5-15); BUN 7 mg/dL (4-19); BUN/Creat Ratio 7.0 RATIO (10-20); Calcium,Total 9.1 mg/dL (7.6-11.0); Carbon Dioxide 23.2 mmol/L (21.0-32.0); Chloride 103 mmol/L (98-108); Estimated Creatinine Clearance 55.55 ml/min (50-250); Globulin 2.9 g/dL (2.2-4.2); Glucose 111 mg/dL (70-99); Lipase 28 U/L (13-75); Potassium 3.5 mmol/L (3.3-5.1)
--- NOTE | 2025-07-18 11:13 | CT_ITS ---
PROCEDURE: ABDOMEN/PELVIS W IV CONT ONLY 07/18/2025 REASON FOR EXAM: RIGHT FLANK PAIN, RECENT PYLORIC STENT REMOVAL TECHNIQUE: Procedure Code: [id number] Modality: CT Procedure: ABDOMEN/PELVIS W IV CONT ONLY Coronal and Sagittal reconstruction series were provided. CONTRAST: Isovue 370 VOLUME: 75 mL One or more dose reduction techniques were used (e.g., Automated exposure control, adjustment of the mA and/or kV according to patient size, use of iterative reconstruction technique. RADIATION DOSE SUMMARY: CTDlvol: 5.95 mGy DLP: 305.35 mGycm COMPARISON: None. FINDINGS: Lung bases: Clear. Liver: Unremarkable. Gallbladder: Cholecystectomy. No biliary dilation. Spleen: Unremarkable. Pancreas: Unremarkable. Adrenals: Unremarkable. Kidneys: No hydronephrosis. No nephrolithiasis. Bladder: Unremarkable. Reproductive Organs: Unremarkable. Bowel: Colonic diverticulosis . diffuse edematous wall thickening of the left and sigmoid colon along with mild pericolic fat stranding concerning for acute diverticulitis. Appendix: Unremarkable. Lymph nodes: No lymphadenopathy. Vasculature: No aneurysm. Peritoneum / Retroperitoneum: No free air or free fluid. Bones: No acute bony abnormalities. CT/Abdomen/Pelvis W IV Cont ONLY IMPRESSION: Colonic diverticulosis and diffuse edematous wall thickening of the left and si gmoid colon along with mild pericolic fat stranding concerning for acute diverticulitis. Reading Location: [facility]
[2025-07-18 11:24] VITALS: BP 137/91; PULSE 89; RESP 18; O2SAT 100
[2025-07-18 11:48] LABS: Mucous, Urine 0 SEEN /hpf (<or=2+)
[2025-07-18 11:50] LABS: Color, Urine Yellow (Yellow); Glucose, Dipstick Normal (Normal); Ketone-Dipstick Negative (Negative); Leukocyte Esterase-Dipstick Negative /ul (Negative); Nitrite-Dipstick Negative (Negative); Occult Blood-Urine 10 /ul (Negative); Protein-Dipstick Negative (Negative); Specific Gravity, Urine 1.010 (1.002-1.030); Urine Bilirubin Dipstick Negative (Negative)
[2025-07-18 12:02] LABS: Red Blood Cells-Urine 0-5 SEEN /hpf (0-5); Squamous Epithelial Cells - UA 0-5 SEEN /hpf (5-10)
[2025-07-18 12:36] VITALS: BP 124/76; PULSE 78; RESP 16; TEMP 36.1; O2SAT 99
== END 2025-07-18 12:38 | disposition home or self-care (01) ==
PROVIDERS: Emergency Provider Surgery; PCP Internal Medicine; Visit Provider Surgery
DX: R10.A1 Flank pain, right side (principal); E11.43 Type 2 diabetes mellitus with diabetic autonomic (poly)neuropathy; Z87.891 Personal history of nicotine dependence
CPT/HCPCS: 74177; 80053; 81001; 83605; 83690; 85025; 96361; 96374; 96375; 96376; 99283; Q9967; J2405